=== PATIENT | female | born 1995 | race Caucasian/White ===

== ENCOUNTER 2023-05-18 11:56 | Day surgery (SDC) | payer OTHER, SELFPAY ==
--- NOTE | 2023-05-18 12:00 | FL_ITS ---
[address] [address] Patient Name: PEDRO BUSTOS MRN: [id number] date: 1995 Sex: F Assigned Patient Location: MRI Current Patient Location: MRI Accession/Order Number: [id number] Exam Date: 05/18/2023 12:55 Report Date: 05/18/2023 14:52 At the request of: SAE ANDRADE Procedure: FL arthrogram hip RT EXAMINATION: FL arthrogram hip RT HISTORY: Right hip pain COMPARISON: No relevant comparison available. TECHNIQUE: An arthrogram was performed under fluoroscopic guidance using non-ionic contrast material in the usual sterile manner after obtaining informed consent. Standard level fluoroscopic mode of operation utilized. FINDINGS: JOINT: Right hip NEEDLE: 25 gauge, 3.5 spinal needle. MEDICATION: 2 mL buffered 1% lidocaine for subcutaneous anesthesia. 40 mg Kenalog injected into joint space. Approximately 8 mL injected into joint space consisting of a mixture of 5 mL Omnipaque-300, 5 mL 1% Xylocaine and 0.2 mL Dotarem. TECHNIQUE: Anterior approach under fluoroscopic guidance. CLINICAL: Decreased pain following the injection. COMPLICATIONS: None. OTHER: Negative. FL/FL arthrogram hip RT IMPRESSION: 1. Technically successful arthrogram without complication. 2. Please see separate MRI arthrogram report. Electronically authenticated by: LUIS MANUEL PERES Date: 05/18/2023 14:52
--- NOTE | 2023-05-18 12:11 | FL_ITS ---
The [address] [address] Patient Name: PEDRO BUSTOS MRN: [facility]:[id number] date: 1995 Sex: F Assigned Patient Location: MRI Current Patient Location: MRI Accession/Order Number: [id number] Exam Date: 05/18/2023 12:55 Report Date: 05/19/2023 06:27 At the request of: SAE ANDRADE Procedure: FL guided needle placement EXAMINATION: MR arthrogram hip HISTORY: Right hip pain COMPARISON: No relevant comparison available. TECHNIQUE: A comprehensive examination was performed utilizing a variety of imaging planes and imaging parameters to optimize visualization of suspected pathology. Images were obtained without and/or with IV contrast as indicated by type of examination. FINDINGS: FEMORAL HEAD: Normal. No AVN, fracture, or significant arthropathy. ACETABULUM: Normal. No fracture or significant arthropathy. OTHER BONES: Normal appearance of the visualized portion of the pelvis. LABRUM: Small tear of the posterior labrum. EFFUSIONS: None. No synovitis or loose bodies. BURSAE: Normal. No evidence of iliopsoas or trochanteric bursitis. TENDONS: Normal. Normal gluteus tendons, iliopsoas tendon, and hamstring origin. MUSCLES: Normal. No tear or strain. No inappropriate atrophy. OTHER: Negative. FL/FL guided needle placement IMPRESSION: 1. Small posterior labral tear. Electronically authenticated by: LUIS MANUEL PERES Date: 05/19/2023 06:27
[2023-05-18] MEDS: TRIAMCINOLONE ACETONIDE 40 MG/ML VIAL INJ (13:25)
[2023-05-18] MEDS: LIDOCAINE HCL 15 ML, SODIUM BICARBONATE 2 MEQ INJ (13:25)
--- NOTE | 2023-05-18 13:35 | MR_ITS ---
The [address] [address] Patient Name: PEDRO BUSTOS MRN: [facility]:[id number] date: 1995 Sex: F Assigned Patient Location: MRI Current Patient Location: MRI Accession/Order Number: [id number] Exam Date: 05/18/2023 13:35 Report Date: 05/19/2023 06:27 At the request of: SAE ANDRADE Procedure: MR arthrogram hip EXAMINATION: MR arthrogram hip HISTORY: Right hip pain COMPARISON: No relevant comparison available. TECHNIQUE: A comprehensive examination was performed utilizing a variety of imaging planes and imaging parameters to optimize visualization of suspected pathology. Images were obtained without and/or with IV contrast as indicated by type of examination. FINDINGS: FEMORAL HEAD: Normal. No AVN, fracture, or significant arthropathy. ACETABULUM: Normal. No fracture or significant arthropathy. OTHER BONES: Normal appearance of the visualized portion of the pelvis. LABRUM: Small tear of the posterior labrum. EFFUSIONS: None. No synovitis or loose bodies. BURSAE: Normal. No evidence of iliopsoas or trochanteric bursitis. TENDONS: Normal. Normal gluteus tendons, iliopsoas tendon, and hamstring origin. MUSCLES: Normal. No tear or strain. No inappropriate atrophy. OTHER: Negative. MR/MR arthrogram hip IMPRESSION: 1. Small posterior labral tear. Electronically authenticated by: LUIS MANUEL PERES Date: 05/19/2023 06:27
== END 2023-05-18 11:57 | disposition home or self-care (01) ==
PROVIDERS: Radiology Diagnostic Radiology; Visit Provider Personal Emergency Response Attendant
DX: M25.551 Pain in right hip (principal); S73.191A Other sprain of right hip, initial encounter
CPT/HCPCS: 27093; 73525; 73722; 77002; A9575; Q9967

== ENCOUNTER 2023-11-01 16:45 | Outpatient (OUT) | payer MEDICAID, SELFPAY ==
--- NOTE | 2023-11-01 16:59 | US_ITS ---
The [place] [id number] Patient Name: PEDRO BUSTOS MRN: [id number] date: 1995 Sex: F Assigned Patient Location: Current Patient Location: Accession/Order Number: [id number] Exam Date: 11/01/2023 17:00 Report Date: 11/02/2023 06:39 At the request of: CARMEN GIFFORD Procedure: US OB <= 14 weeks fetus EXAMINATION: US OB <= 14 weeks fetus HISTORY: bleeding in early O20.9 COMPARISON: No relevant comparison available. FINDINGS: GESTATIONAL SAC: Present and normal appearing. YOLK SAC: Present and normal appearing. POLE: Present and normal appearing. CARDIAC: Present. UTERUS: Normal size and appearance. OVARIES: Right: Not seen. Left: Normal. CERVIX: 4.6 cm in length and closed. CUL-DE-SAC: Normal. OTHER: None. AGE BY LMP: 11 weeks 1 day [place] BY LMP: 05/21/2024 AGE BY US CRL: 12 weeks 1 day [place] BY US CRL: 05/14/2024 US/US OB <= 14 weeks fetus IMPRESSION: 1. Single live intrauterine . Electronically authenticated by: LUIS MANUEL PERES Date: 11/02/2023 06:39
== END 2023-11-01 16:46 | disposition home or self-care (01) ==
PROVIDERS: Visit Provider Midwife
DX: O20.9 Hemorrhage in early pregnancy, unspecified (principal); Z3A.12 12 weeks gestation of pregnancy
CPT/HCPCS: 76801

== ENCOUNTER 2024-02-27 21:22 | Observation (INO) | payer OTHER, SELFPAY ==
--- OUTSIDE RECORDS SUMMARY | 2024-02-27 21:42 | XMS_ITS | CCD ---
Author Organization [facility] Care Team Providers Care Tactical/Mobile Watch Officer Name Role Phone Beena Mosqueda Unavailable EcheverriaMarialuisa pleitez Unavailable Carlos Perry Unavailable Ovi Walsh Attending Unavailab le Ovi Walsh Admitting Unavailab le NON STAFF Primary Care Unavailable Unallocated, Noms Provider Primary Care Provider DIVINA BURNSERIE Referring Unavailable RUY, CHIVO THOMAS Primary Care Unavailable CECIL ROBLEDO Attending Unavailable FLORO, CARMEN Referring Unavailable RUY, CHIVO THOMAS Primary Care Unavailable RUY, CHIVO THOMAS Primary Care Unavailable JAMAL NAGEL Attending Unavailable ART UP Admitting Unavailable ART UP Attending Unavailable RUY, CHIVO THOMAS Primary Care Unavailable RUY, CHIVO THOMAS Primary Care Unavailable RUY, CHIVO THOMAS Primary Care Unavailable FLORO, CARMEN L Attending Unavailable FLORO, CARMEN L Attending Unavailable FLORO, CARMEN L Attending Unavailable FLORO, CARMEN L Referring Unavailable FLORO, CARMEN L Attending Unavailable FLORO, CARMEN L Attending Unavailable FLORO, CARMEN L Attending Unavailable FLORO, CARMEN L Referring Unavailable Allergies Allergy Classification Reported Allergen(s) Allergy Type Date of Onset Reaction(s) Facility (4 sources) [facility] Drug Allergy Rash, Unknown cisimple Other (1 source) [facility] Drug Allergy 01-07-20 [facility] Repository (6 sources) metFORMIN; Translations: [METFORMIN HCL] Drug Allergy 09-07-20 Unknown [facility] (6 sources) nickel sulfate; Translations: [NICKEL] Drug Allergy 12-26-19 Rash [facility] (6 sources) Sulfamethoxazole / Trimethoprim; Translations: [SULFAMETHOXAZOLE-T RIMETHOPRIM] Drug Allergy 09-07-20 Dizziness [facility] (1 source) Latex; Translations: [LATEX] Propensity to adverse reactions to drug (disorder) 02-08-20 [facility] Repository Medications Current Medications Medication Drug Class(es) Dates Sig (Normalized) Sig (Original) amoxicillin 875 mg oral tablet (3 sources) Penicillin-class Antibacterial Start: 01-06-2023 take 1 tablet by mouth every twelve hours Amoxicillin 875 MG 1 capsule Orally Twice a day for 7 days Dec, Active ondansetron 4 mg disintegrating oral tablet (7 sources) Serotonin-3 Receptor Antagonist Start: 03-12-2023 take 1 tablet by mouth every eight hours as needed ondansetron ODT (Zofran-ODT) 4 MG disintegrating tablet Take 4 mg by mouth every 8 (eight) hours if needed. 0 03/12/2023 Active Start: 01-03-2023 take 1 tablet by [place] every eight hours Ondansetron 4 MG 1 tablet on the tongue and allow to dissolve Orally every 8 hours for 5 days Dec, Not-Taking sertraline 100 mg oral tablet (8 sources) Serotonin Reuptake Inhibitor Start: 09-19-2022 take 2 tablets by mouth in the morning sertraline (Zoloft) 100 MG tablet Take 200 mg by mouth in the morning. 0 09/19/2022 Active take 1 capsule by mo [facility] every twenty-four hours Sertraline HCl 200 MG 1 capsule Orally Once a day Active Sertraline HCl A ctive Completed/Discontinued Medications Medication Drug Class(es) Dates Sig (Normalized) Sig (Original) cyclobenzaprine hydrochloride 10 mg oral tablet (1 source) Muscle Relaxant Start: 03-30-2023 End: 10-04-2023 take 1 tablet by mouth three times daily as needed cyclobenzaprine (Flexeril) 10 MG tablet Take 10 mg by mouth 3 (three) times a day as needed. 0 03/30/2023 10/04/2023 Discontinued (Therapy completed) lamoTRIgine 150 mg oral tablet (5 sources) Mood Stabilizer, Anti-epileptic Agent Start: 02-13-2023 End: 10-04-2023 take 1 tablet by mouth in the morning lamoTRIgine (LaMICtal) 150 MG tablet Take 150 mg by mouth in the morning. 0 02/13/2023 10/04/2023 Discontinued (Therapy completed) take 1 tablet by [place] th every twenty-four hours lamoTRIgine 100 MG 1 tablet Orally Once a day Active lamoTRIgine Acti ve Problems Active Problems Problem Classification Problem Date Documented Da te Episodic/Chronic Abdominal pain (5 sources) Abdominal pain; Translations: [Unspecified abdominal pain] Onset: 10-14-2023 Episodic Anxiety disorders (1 source) Panic attack Onset: 02-08-2024 Chronic Esophageal disorders (3 sources) Gastro-esophageal reflux disease with esophagitis; Translations: [Gastro-esophageal reflux disease with esophagitis] Chronic Essential hypertension (1 source) Hypertensive disorder Onset: 12-25-2023 Chronic Gastritis and duodenitis (3 sources) Gastritis; Translations: [Gastritis, unspecified, without bleeding] Episodic Gastrointestinal hemorrhage (3 sources) Hematochezia; Translations: [Hemorrhage of anus and rectum] Episodic Immunizations and screening for infectious disease (1 source) Contact with and (suspected) exposure to other viral communicable diseases Episodic Malaise and fatigue (2 sources) Weakness; Translations: [Fatigue] Onset: 12-25-2023 Episodic Menstrual disorders (1 source) Amenorrhea; Translations: [Amenorrhea, unspecified] 10-04-2023 Chronic Nausea and vomiting (7 sources) Nausea; Translations: [Nausea] Episodic Other complications of (1 source) Other specified related conditions, second trimester; Translations: [Other specified related conditions, second trimester] Onset: 01-11-2024 Episodic Other gastrointestinal disorders (3 sources) Irritable bowel syndrome; Translations: [Mixed irritable bowel syndrome] Chronic Other gastrointestinal disorders (3 sources) Irritable bowel syndrome characterized by constipation; Translations: [Irritable bowel syndrome with constipation] Chronic Other gastrointestinal disorders (3 sources) Constipation alternates with diarrhea; Translations: [Other specified symptoms and signs involving the digestive system and abdomen] Episodic Other gastrointestinal disorders (3 sources) Diarrhea; Translations: [Diarrhea, unspecified] Episodic Other and delivery including normal (3 sources) test positive; Translations: [Encounter for test, result positive] 10-04-2023 Episodic Other screening for suspected conditions (not mental disorders or infectious disease) (3 sources) Patient encounter status; Translations: [Encounter for other specified screening] Onset: 02-06-2024 11-30-2023 Episodic Other upper respiratory infections (2 sources) Sinusitis; Translations: [Chronic sinusitis, unspecified] Chronic Other upper respiratory infections (2 sources) Acute upper respiratory infection, unspecified; Translations: [Acute pharyngitis, unspecified] Episodic Otitis media and related conditions (1 source) Otitis media, unspecified, bilateral Episodic Unclassified (3 sources) OB Reminders Onset: 11-17-2023 11-17-2023 Unclassified (1 source) HX IUGR Onset: 02-06-2024 Unclassified (1 source) High Blood Pressure, 19 Weeks Onset: 12-25-2023 Unclassified (1 source) Abdominal Pain Onset: 10-14-2023 Past or Other Problems Problem Classification Problem Date Documented Da te Episodic/Chronic Other complications of (1 source) Other specified related conditions, unspecified trimester; Translations: [Other specified related conditions, unspecified trimester] Onset: 10-14-2023 Episodic Unclassified (1 source) Cough R05.9 NEGATED: Highlighted row has been ruled out!Unclassified (4 sources) No known active problems 06-06-2023 Results Test Name Value Interpretation Reference Range Facility URINALYSISon 01-11-2024 Bilirubin Ql (U) Negative Normal NEG [facility] Comment on above: Performed By: #### U A #### [facility] ([id number]) [address] [place] [address]45 BLOOD/HGB Negative Normal NEG [facility] Comment on above: Performed By: #### U A #### [facility] ([id number]) [address] [place] [address] [place] [address] Color (U) YELLOW Normal YELLOW [facility] Comment on above: Performed By: #### U A #### [facility] ([id number]) [address] [place] [address] [place] [address] Glucose Ql (U) Negative Normal NEG [facility] Comment on above: Performed By: #### U A #### [facility] ([id number]) [address] [place] [address] [place] [address] Ketones Ql (U) Trace Abnormal NEG [facility] Comment on above: Performed By: #### U A #### [facility] ([id number]) [address] [place] [address] 47370 Leukocyte esterase Test strip Ql (U) SMALL Abnormal NEG [facility] Comment on above: Performed By: #### U A #### [facility] ([id number]) [address] [place] [address] 17888 Nitrite Ql (U) Negative Normal NEG [facility] Comment on above: Performed By: #### U A #### [facility] ([id number]) [address] [place] [address] 12889 pH (U) 6.0 [pH] Normal 5.0-8.5 [facility] Comment on above: Performed By: #### U A #### [facility] ([id number]) [address] [place] [address] 73744 Protein Ql (U) Negative Normal NEG [facility] Comment on above: Performed By: #### U A #### [facility] ([id number]) [address] [place] [address] [place] [address] R.B.CELLS 0 to 1 Normal 0-5 [facility] Comment on above: Performed By: #### U A #### [facility] ([id number]) [address] [place] [address] [place] [address] Specific gravity (U) [Rel density] >1.030 Normal 1.003-1.035 [facility] Comment on above: Performed By: #### U A #### [facility] ([id number]) [address] [place] [address] [place] [address] SQUAMOUS EPITHELIUM 5 /hpf Normal 0-5 [facility] Comment on above: Performed By: #### U A #### [facility] ([id number]) [address] [place] [address] 72782 TURBIDITY HAZY Abnormal CLEAR [facility] Comment on above: Performed By: #### U A #### [facility] ([id number]) [address] [place] [address] 04651 Urobilinogen Qn (U) 0.2 {Afsaneh'U}/dL Normal <1.1 [facility] Comment on above: Performed By: #### U A #### [facility] ([id number]) [address] [place] [address] 78218 W.B.CELLS 30 /hpf High 0-5 [facility] Comment on above: Performed By: #### U A #### [facility] ([id number]) [address] [place] [address] URINE CULTUREon 01-11-2024 Bacteria identified Cx Nom (U) SPECIMEN NOTES URINE RECEIVED WITHOUT PRESERVATIVE CULTURE RESULTS 10-50,000 ORGANISMS/mL NORMAL UROGENITAL MANNY URINE RECEIVED WITHOUT PRESERVATIVE-DELAYS IN TRANSPORT MAY AFFECT RESULTS.INTERPRET WITH CAUTION AND CLINICAL CORRELATION IS RECOMMENDED. Normal [facility] Comment on above: Performed By: #### 6 30-4 #### [facility] ([id number]) [address], [address] [place] [address] CBC AND AUTO DIFFon 12-25-19 24 ABSOLUTE BASOPHIL 0.0 X10E9/L Normal 0.0-0.[address] [facility] Comment on above: Performed By: #### C BCA, CMP #### [facility] ([id number]) [address] [place] [address] ABSOLUTE NEUTROPHIL 8.4 X10E9/L High 1.5-6.6 [facility] Comment on above: Performed By: #### C BCA, CMP #### [facility] ([id number]) [address] [place] [address] 77375 Basophils/100 WBC (Bld) 0.2 % Normal [facility] Comment on above: Performed By: #### C BCA, CMP #### [facility] ([id number]) [address] [place] [address] 60437 Eosinophils (Bld) [#/Vol] 0.1 10*3/uL Normal 0.0-0.4 [facility] Comment on above: Performed By: #### C BCA, CMP #### [facility] ([id number]) [address] [place] [address] 29251 Eosinophils/100 WBC (Bld) 1.0 % Normal [facility] Comment on above: Performed By: #### C BCA, CMP #### [facility] ([id number]) [address] [place] [address] 23096 Erythrocyte distribution width (RBC) [Ratio] 12.9 % Normal 11.5-15.0 [facility] Comment on above: Performed By: #### C BCA, CMP #### [facility] ([id number]) [address] [place] [address] 98835 Hematocrit (Bld) [Volume fraction] 36.6 % Normal 35-47 [facility] Comment on above: Performed By: #### C BCA, CMP #### [facility] ([id number]) [address] [place] [address] 67596 Hemoglobin (Bld) [Mass/Vol] 12.7 g/dL Normal 11.7-15.5 [facility] Comment on above: Performed By: #### C BCA, CMP #### [facility] ([id number]) [address] [place] [address] 30241 Lymphocytes (Bld) [#/Vol] 2.7 10*3/uL Normal 1.0-3.5 [facility] Comment on above: Performed By: #### C BCA, CMP #### [facility] ([id number]) [address] [place] [address] 29419 Lymphocytes/100 WBC (Bld) 23.0 % Normal [facility] Comment on above: Performed By: #### C BCA, CMP #### [facility] ([id number]) [address] [place] [address] 97155 MCH (RBC) [Entitic mass] 29.8 pg Normal 27-34 [facility] Comment on above: Performed By: #### C BCA, CMP #### [facility] ([id number]) [address] [place] [address] 44042 MCHC (RBC) [Mass/Vol] 34.8 g/dL Normal 32-36 [facility] Comment on above: Performed By: #### C BCA, CMP #### [facility] ([id number]) [address] [place] [address] 87799 MCV (RBC) [Entitic vol] 86 fL Normal 80-100 [facility] Comment on above: Performed By: #### C BCA, CMP #### [facility] ([id number]) [address] [place] [address] 23584 Monocytes (Bld) [#/Vol] 0.6 10*3/uL Normal 0-0.9 [facility] Comment on above: Performed By: #### C BCA, CMP #### [facility] ([id number]) [address] [place] [address] 97877 Monocytes/100 WBC (Bld) 4.9 % Normal [facility] Comment on above: Performed By: #### C BCA, CMP #### [facility] ([id number]) [address] [place] [address] 86759 Neutrophils/100 WBC (Bld) 70.9 % Normal [facility] Comment on above: Performed By: #### C BCA, CMP #### [facility] ([id number]) [address] [place] [address] 89918 Platelet mean volume (Bld) [Entitic vol] 7.6 fL Normal 7-12 [facility] Comment on above: Performed By: #### C BCA, CMP #### [facility] ([id number]) [address] [place] [address] 55357 Platelets (Bld) [#/Vol] 315 10*3/uL Normal 150-450 [facility] Comment on above: Performed By: #### C BCA, CMP #### [facility] ([id number]) [address] [place] [address] 39634 RBC COUNT 4.27 X10E12/L Normal 3.80-5.20 [facility] Comment on above: Performed By: #### C BCA, CMP #### [facility] ([id number]) [address] [place] [address] 46449 WBC (Bld) [#/Vol] 11.9 10*3/uL High 4.0-11.0 [facility] Comment on above: Performed By: #### C BCA, CMP #### [facility] ([id number]) [address] [place] [address] 74664 COMPREHENSIVE METABOLIC PANE Radames 12-25-2023 Albumin [Mass/Vol] 3.4 g/dL Normal 3.2-5.[address] [facility] Comment on above: Performed By: #### C BCA, CMP #### [facility] ([id number]) [address] [place] [address] 23464 ALP [Catalytic activity/Vol] 104 U/L Normal 39-130 [facility] Comment on above: Performed By: #### C BCA, CMP #### [facility] ([id number]) [address] [place] [address] 30202 ALT [Catalytic activity/Vol] 46 U/L High 0-31 [facility] Comment on above: Performed By: #### C BCA, CMP #### [facility] ([id number]) [address] [place] [address] 88446 Anion gap [Moles/Vol] 6 mmol/L Normal 5-15 [facility] Comment on above: Performed By: #### C BCA, CMP #### [facility] ([id number]) [address] [place] [address] 42856 AST [Catalytic activity/Vol] 28 U/L Normal 0-41 [facility] Comment on above: Performed By: #### C BCA, CMP #### [facility] ([id number]) [address] [place] [address] 89440 Bilirubin [Mass/Vol] 0.4 mg/dL Normal 0.3-1.2 [facility] Comment on above: Performed By: #### C BCA, CMP #### [facility] ([id number]) [address] [place] [address] 04609 Calcium [Mass/Vol] 9.3 mg/dL Normal 8.5-10.[address] [facility] Comment on above: Performed By: #### C BCA, CMP #### [facility] ([id number]) [address] [place] [address] 85399 Chloride [Moles/Vol] 103 mmol/L Normal 98-109 [facility] Comment on above: Performed By: #### C BCA, CMP #### [facility] ([id number]) [address] [place] [address] 11737 CO2 [Moles/Vol] 23 mmol/L Normal 22-32 [facility] Comment on above: Performed By: #### C BCA, CMP #### [facility] ([id number]) [address] [place] [address] 63343 Creatinine [Mass/Vol] 0.51 mg/dL Normal 0.40-1.00 [facility] Comment on above: Result Comment: METH OD TRACEABLE TO IDMS STANDARD Performed By: #### C BCA, CMP #### [facility] ([id number]) [address] [place] [address] 16385 eGFR (CKD-EPI) NON-RACE DEPENDENT >90 Normal >59 [facility] Comment on above: Result Comment: Reported eGFR is based on the CKD-EPI 2020 equation that does not use a race coefficient. Performed By: #### C BCA, CMP #### [facility] ([id number]) [address] [place] [address] 60470 Glucose [Mass/Vol] 88 mg/dL Normal 65-[address] [facility] Comment on above: Performed By: #### C BCA, CMP #### [facility] ([id number]) [address] [place] [address] 89438 Potassium [Moles/Vol] 3.7 mmol/L Normal 3.5-5.0 [facility] Comment on above: Performed By: #### C BCA, CMP #### [facility] ([id number]) [address] [place] [address] 95417 Protein [Mass/Vol] 7.2 g/dL Normal 6.0-8.[address] [facility] Comment on above: Performed By: #### C BCA, CMP #### [facility] ([id number]) [address] [place] [address] 31657 Sodium [Moles/Vol] 132 mmol/L Low 134-[address] [facility] Comment on above: Performed By: #### C BCA, CMP #### [facility] ([id number]) [address] [place] [address] 41219 Urea nitrogen [Mass/Vol] 10 mg/dL Normal 5-23 [facility] Comment on above: Performed By: #### C BCA, CMP #### [facility] ([id number]) [address] [place] [address] 40531 URN MACROSCOPIC NURon 2023 BILIRUBIN TITO Negative Normal NEG [facility] Comment on above: Performed By: #### N UM #### [facility] ([id number]) [address] [place] [address] 42271 BLOOD/HGB TITO Negative Normal NEG [facility] Comment on above: Performed By: #### N UM #### [facility] ([id number]) [address] [place] [address] 38352 GLUCOSE TITO 100 mg/dL Abnormal NEG [facility] Comment on above: Performed By: #### N UM #### [facility] ([id number]) [address] [place] [address] [place] [address] KETONES TITO Negative Normal NEG [facility] Comment on above: Performed By: #### N UM #### [facility] ([id number]) [address] [place] [address] [place] [address] LEUKOCYTE ESTERASE TITO Trace Abnormal NEG [facility] Comment on above: Performed By: #### N UM #### [facility] ([id number]) [address] [place] [address] [place] [address] NITRITE TITO Negative Normal NEG [facility] Comment on above: Performed By: #### N UM #### [facility] ([id number]) [address] [place] [address] 17863 PH TITO 6.0 Normal 5.0-8.5 [facility] Comment on above: Performed By: #### N UM #### [facility] ([id number]) [address] [place] [address] 26007 PROTEIN TITO Negative Normal NEG [facility] Comment on above: Performed By: #### N UM #### [facility] ([id number]) [address] [place] [address] SPECIFIC GRAVITY TITO 1.020 Normal 1.003-1.035 [facility] Comment on above: Performed By: #### N UM #### [facility] ([id number]) [address] [place] [address] UROBILINOGEN TITO 0.2 eu/dL Normal <1.1 [facility] Comment on above: Performed By: #### N UM #### [facility] ([id number]) [address] [place] [address] US OB 14+ WEEKS ANATOMY SCAN on 12-21-2023 US OB 14+ WEEKS ANATOMY SCAN FINDINGS: Single live intrauterine . heart rate 145 bpm. Cephalic position. somatic movement identified. Grade 1 anterior placenta. BÁRBARA 13.78 cm. Cervical length 3.4 cm. Lateral ventricles, posterior fossa, four-chamber heart, diaphragm, stomach, kidneys, three-vessel cord and cord insertion, urinary bladder, long bones identified. Cervical, thoracic, and lumbar spine incompletely imaged secondary to age and position. Estimated sonographic gestational age 19 weeks, 0 days. This compares with 19 weeks, 1 day by dates. Sonographic estimated date of delivery May 16, 2024. Estimated weight 270 g (39% by LMP percentile). BPD 4.37 cm. AC 13.49 cm. HC 15.86 cm. FL 3.0 cm. IMPRESSION: Single live intrauterine with estimated sonographic gestational age 19 weeks, 0 days. Estimated weight 270 g. ELECTRONICALLY SIGNED BY: Elio Chawla MD Normal Not Available Bacteria identified Cx Nom ( U)on 11-03-2023 Appearance (U) Adequate [facility] Internal identifier for Provider [id number] [facility] Specimen source Nom (Unsp spec) URINE [facility] STATUS FINAL [facility] DRUG TOX MONITORIGN 6 W/ CON F,URINEon 11-03-2023 8-Ejkqtrmflp-5,5-Dimethy l-3,3-Diphenylpyrrolidin e (EDDP) Ql (U) Negative NINF - 100 ng/mL [facility] Amphetamines Ql (U) Negative NINF - 5 00 ng/mL [facility] Barbiturates Ql (U) Negative NINF - 3 00 ng/mL [facility] Benzodiazepines Ql (U) Negative NINF - 100 ng/mL [facility] Benzoylecgonine Ql (U) Negative NINF - 150 ng/mL [facility] Opiates Ql (U) Negative NINF - 100 ng/mL [facility] oxyCODONE Ql (U) Negative NINF - 100 ng/mL [facility] Phencyclidine Ql (U) Negative NINF - 25 ng/mL [facility] Tetrahydrocannabinol Screen method >20 ng/mL Ql (U) Negative NINF - 20 ng/mL [facility] N. gonorrhoeae DNA ANTONIO+probe Ql (Cervical mucus)on 11-03-2023 C. trachomatis rRNA ANTONIO+probe Ql (Unsp spec) Not detected NOT DETECTED [facility] N. gonorrhoeae rRNA ANTONIO+probe Ql (Unsp spec) Not detected NOT DETECTED [facility] No Panel Informationon 11-03 (ALWAYS MESSAGE) [facility] Comment on above: See Note 1 Note 1 This drug testing is for medical treatment only. Analysis was performed as non-forensic testing and these results should be used only by healthcare providers to render diagnosis or treatment, or to monitor progress of medical conditions. For assistance with interpreting these drug results, please contact a [employer] Toxicology Specialist: [phone] ( ), M-F, 8am-6pm EST. The analytical perfo rmance characteristics of this assay, when used to test SurePath(TM) specimens have been determined by [employer]. The modifications have not been cleared or approved by the FDA. This assay has been validated pursuant to the CLIA regulations and is used for clinical purposes. For additional information, please refer to https://education.psicofxp/faq/GJF718 (This link is being provided for information/ educational purposes only.) SPLIT 11/01/2023 FROM [id number] [employer] Organization Information Site ID: QPT Name: [employer] [facility] Address: [address] [place], [place] [address] , [address] [place] [phone] Director: Arturo Nobles MD [facility] URINALYSIS MICROSCOPICon Bacteria LM.HPF (Urine sed) [#/Area] NONE SEEN NONE SEEN /HPF [facility] Epithelial cells.squamous LM.HPF (Urine sed) [#/Area] 6-10 Abnormal < OR = 5 /HPF [facility] Hyaline casts (Urine sed) [#/Area] NONE SEEN NONE SEEN /LPF [facility] Interpretation and review of laboratory results Abnormal [facility] RBC LM.HPF (Urine sed) [#/Area] 0-2 < OR = 2 /HPF [facility] WBC LM.HPF (Urine sed) [#/Area] NONE SEEN < OR = 5 /HPF [facility] Urine cultureon 11-03-2023 Bacteria identified Cx Nom (U) SEE NOTE [facility] Comment on above: No Growth ABO/Rhon 11-02-2023 ABO group Nom (Bld) B [facility] Rh Nom (Bld) Positive [facility] Comment on above: For additional information, please refer to http://education.Coship Electronics/faq/DRT795 (This link is being provided for informational/ educational purposes only.) Antibody screenon 11-02-2023 Blood group antibody screen Ql Detected [facility] Comment on above: Reference range No antibodies detected This assay is a screening test for the detection of red blood cell antibodies. The test is not to be used for pretransfusion screening or for the medical management of an alloimmunized . CBC panel Auto (Bld)on 11-02 Erythrocyte distribution width (RBC) [Ratio] 12.6 % 11.0 - 15.0 % [facility] Hematocrit (Bld) [Volume fraction] 39.5 % 35.0 - 45.0 % [facility] Hemoglobin (Bld) [Mass/Vol] 13.3 g/dL 11.7 - 15.5 g/dL [facility] MCH (RBC) [Entitic mass] 30.1 pg 27. 0 - 33.0 pg [facility] MCHC (RBC) [Mass/Vol] 33.7 g/dL 32.0 - 36.0 g/dL [facility] MCV (RBC) [Entitic vol] 89.4 fL 80.0 - 100.0 fL [facility] Platelet mean volume (Bld) [Entitic vol] 10.1 fL 7.5 - 12.5 fL [facility] Platelets (Bld) [#/Vol] 331 10*3/uL [facility] RBC (Bld) [#/Vol] 4.42 10*6/uL [facility] WBC (Bld) [#/Vol] 12.2 10*3/uL [facility] HIV-1 and HIV-2 antibodieson 11-02-2023 HIV 1+2 Ab+HIV1 p24 Ag IA Ql Non-Reactive NON-REACTIVE [facility] Comment on above: HIV-1 antigen and HI V-1/HIV-2 antibodies were not detected. There is no laboratory evidence of HIV infection. PLEASE NOTE: This information has been disclosed to you from records whose confidentiality may be protected by state law. If your state requires such protection, then the state law prohibits you from making any further disclosure of the information without the specific written consent of the person to whom it pertains, or as otherwise permitted by law. A general authorization for the release of medical or other information is NOT sufficient for this purpose. For additional information please refer to http://education.L[employer].cfgAdvance/faq/JIG426 (This link is being provided for informational/ educational purposes only.) The performance of this assay has not been clinically validated in patients less than 2 years old. Hemoglobin A1con 11-02-2023 HbA1c (Bld) [Mass fraction] 5.9 % [facility] Comment on above: For someone without known diabetes, a hemoglobin A1c value between 5.7% and 6.4% is consistent with prediabetes and should be confirmed with a follow-up test. For someone with known diabetes, a value <7% indicates that their diabetes is well controlled. A1c targets should be individualized based on duration of diabetes, age, comorbid conditions, and other considerations. This assay result is consistent with an increased risk of diabetes. Currently, no consensus exists regarding use of hemoglobin A1c for diagnosis of diabetes for children. HbA1c performed on [employer] platform. Effective 10/03/23 a change in test platforms may have shifted HbA1c results compared to historical results. Hepatitis B surface antigeno n 11-02-2023 HBV surface Ag IA Ql Non-Reactive NON-REACTIVE [facility] Comment on above: For additional information, please refer to http://education.psicofxp/faq/ZWT225 (This link is being provided for informational/ educational purposes only.) Hepatitis C antibodyon 11-02 HCV Ab IA Ql Non-Reactive NON-REACTIVE [facility] Comment on above: HCV antibody was non-reactive. There is no laboratory evidence of HCV infection. In most cases, no further action is required. However, if recent HCV exposure is suspected, a test for HCV RNA (test code 85955) is suggested. For additional information please refer to http://Cloudscaling.psicofxp/faq/COO14h9 (This link is being provided for informational/ educational purposes only.) No Panel Informationon 11-02 Interpretation and review of laboratory results Abnormal [facility] PATIENT UNABLE TO VOID; ADVISED TO RETURN FOR COLLECTION. [employer] Organization Information Site ID: QPT Name: [employer] [facility] Address: [address] [place] [address], [address] [place] [phone] Director: Arturo Nobles MD [facility] RPRon 11-02-2023 Reagin Ab RPR Ql (S) Non-Reactive NON-REACTIVE [facility] Rubella antibody, IgGon 10-16 Rubella virus IgG Qn (S) 1.06 [IU]/mL Index [facility] Comment on above: Index Interpretation ----- <0.90 Not consistent with immunity 0.90-0.99 Equivocal > or = 1.00 Consistent with immunity The presence of rubella IgG antibody suggests immunization or past or current infection with rubella virus. TSH W/REFLEX TO FT4on 2023 TSH Qn 2.06 m[IU]/L mIU/L [facility] are Comment on above: Reference Range > or = 20 Years 0.40-4.50 Ranges First trimester 0.26-2.66 Second trimester 0.55-2.73 Third trimester 0.43-2.91 URINE CULTUREon 10-14-2023 Bacteria identified Cx Nom (U) CULTURE RESULTS <10,000 ORGANISMS/ML NORMAL URO GENITAL MANNY Normal [facility] Comment on above: Performed By: #### 6 30-4 #### [facility] ([id number]) [address] [place] [address], [address] [place] [address] URN MACROSCOPIC NURon 2022 BILIRUBIN TITO Negative Normal NEG [facility] Comment on above: Performed By: #### N UM #### [facility] ([id number]) [address] [place] [address] BLOOD/HGB TITO Trace Abnormal NEG [facility] Comment on above: Performed By: #### N UM #### [facility] ([id number]) [address] [place] [address] GLUCOSE TITO Negative Normal NEG [facility] Comment on above: Performed By: #### N UM #### [facility] ([id number]) [address] [place] [address] [place] [address] KETONES TITO Trace Abnormal NEG [facility] Comment on above: Performed By: #### N UM #### [facility] ([id number]) [address] [place] [address] LEUKOCYTE ESTERASE TITO Negative Normal NEG [facility] Comment on above: Performed By: #### N UM #### [facility] ([id number]) [address] [place] [address] [place] [address] NITRITE TITO Negative Normal NEG [facility] Comment on above: Performed By: #### N UM #### [facility] ([id number]) [address] [place] [address] PH TITO 7.0 Normal 5.0-8.5 [facility] Comment on above: Performed By: #### N UM #### [facility] ([id number]) [address] [place] [address] PROTEIN TITO Negative Normal NEG [facility] Comment on above: Performed By: #### N UM #### [facility] ([id number]) [address] [facility] [place] [address] SPECIFIC GRAVITY TITO 1.025 Normal 1.003-1.035 [facility] Comment on above: Performed By: #### N UM #### [facility] ([id number]) [address] [place] [address] UROBILINOGEN TITO 0.2 eu/dL Normal <1.1 [facility] Comment on above: Performed By: #### N UM #### [facility] ([id number]) [address] [place] [address] US OB < 14 WEEKS EARLYon US OB < 14 WEEKS EARLY This is a summary report. The complete report is available in the patient's medical record. If you cannot access the medical record, please contact the sending organization for a detailed fax or copy. US OB < 14 WEEKS EARLY : 10/04/2023 2:00 PM CLINICAL HISTORY: First trimester . COMPARISON: None available. TECHNIQUE: ROUTINE FINDINGS: The uterus measures 9.3 x 6.2 x 4.6 cm. A single intrauterine is seen with heart motion of 147 bpm. The gestational age based on crown-rump length is 7 weeks 1 day. The right ovary measures 3.2 x 2.5 x 2.5 cm. The left ovary measures 1.8 x 1.7 x 2.1 cm. No free fluid is seen. IMPRESSION: A SINGLE INTRAUTERINE IS SEEN WITH HEART MOTION. THE GESTATIONAL AGE BASED ON THIS EXAMINATION IS 7 WEEKS 1 DAY WITH AN EXPECTED DUE DATE OF MAY 21, 2024. ELECTRONICALLY SIGNED BY: Nilesh Johnson, DO Normal Not Available COVID/FLU/RSV RT-PCRon 01-03 SARS-CoV-2 (COVID-19) RNA ANTONIO+probe Ql (Unsp spec) Negative [place] [employer] Other COVID/FLU/RSV RT-PCR Negative [facility] [employer] Other Quick Strepon 01-03-2023 S. pyogenes Org specific cx Ql (Throat) Negative [facility] [employer] Other Quick Strep [facility] [employer] Other COVID/FLU/RSV RT-PCRon 10-21 SARS-CoV-2 (COVID-19) RNA ANTONIO+probe Ql (Unsp spec) Negative [facility] [employer] Other COVID/FLU/RSV RT-PCR Negative [facility] [employer] Other Q - SURESWAB ADVANCED VAGINI TIS PLUSon 01-21-2022 SENIA GLABRATA Not detected Normal NOT DETECTED [facility] [employer] Machine Operator Comment on above: Order Comment: [facility] Testing performed at: [facility], [address] [facility], [address] [place] [address], [phone], Prime Minister: Arturo Nobles MD [facility] Collection Date/Time: [facility] Results Received Date/Time: [facility] Reported Date/Time: Result Comment: Senia species C. albicans, C. tropicalis, C. parapsilosis, and/or C. dubliniensis can be detected, but not differentiated, in the Senia spp. result. Performed By: #### 1 0120 #### [facility] Default [address] [place] [address] SENIA SPECIES Not detected Normal NOT DETECTED [facility] [employer] Operator Comment on above: Order Comment: [facility] Testing performed at: [facility], [address] , [address] [place] [address], [place], [phone], Prime Minister: Arturo Nobles MD [facility] Collection Date/Time: [facility] Results Received Date/Time: [facility] Reported Date/Time: Performed By: #### 1 0120 #### [facility] Default [address] [place] [address] CHLAMYDIA TRACHOMATIS RNA, TMA, UROGENITAL Not detected Normal NOT DETECTED [facility] [employer] Machine Operator Comment on above: Order Comment: [facility] Testing performed at: [facility], [address], [address] [place] [address], [address] [place] [address], Prime Minister: Arturo Nobles MD [facility] Collection Date/Time: [facility] Results Received Date/Time: [facility] Reported Date/Time: Performed By: #### 1 0120 #### [facility] Default [address] [place] [address] NEISSERIA GONORRHOEAE RNA, TMA, UROGENITAL Not detected Normal NOT DETECTED [facility] Comment on above: Order Comment: [facility] performed at: [employer], [employer] [employer] [facility], [address] , [address] [place] [address], [address] [place] [address], Prime Minister: Arturo Nobles MD [facility] Collection Date/Time: [facility] Results Received Date/Time: [facility] Reported Date/Time: Result Comment: For additional information, please refer to https://Cloudscaling.psicofxp/faq/ZKG957 (This link is being provided for information/ educational purposes only.) Performed By: #### 1 0120 #### [facility] Default [address] [place] [address] SURESWAB(R) ADV BACTERIAL VAGINOSIS (BV), TMA Negative Normal NEGATIVE [facility] Comment on above: Order Comment: [facility] Testing performed at: [employer], [employer] [facility], [address], [address] [place] [address], [address] [place] [address], Prime Minister: Arturo Nobles MD [facility] Collection Date/Time: [facility] Results Received Date/Time: [facility] Reported Date/Time: Performed By: #### 1 0120 #### [facility] Default [address] [place] [address] TRICHOMONAS VAGINALIS (TV), TMA Not detected Normal NOT DETECTED [facility] Comment on above: Order Comment: [facility] performed at: [employer], [employer] [facility], [address], [address] [place] [address], [phone], Prime Minister: Arturo Nobles MD [facility] Date/Time: [id number] [facility] Results Received Date/Time: [facility] Reported Date/Time: [id number] Performed By: #### 1 0120 #### [facility] Default [address] [place] [address] Vital Signs Date Time Vital Sign Value Performing Clinician Facility 11-30-2023 13:31-0500 Body mass index (BMI) [Ratio] 24.61 kg/m2 Carmen Sharonao CNM Work Phone: [facility] 11-30-2023 13:31-0500 Body weight 57.15 kg Carmen Sharonao CNM Work Phone: [facility] 11-30-2023 13:31-0500 Diastolic blood pressure 60 mm[Hg] Carmen Sharonao CNM Work Phone: [facility] 11-30-2023 13:31-0500 Systolic blood pressure 110 mm[Hg] Carmen Sharonao CNM Work Phone: [facility] 10-04-2023 13:46-0500 Body mass index (BMI) [Ratio] 25 kg/m2 Carmen Floro CNM Work Phone: [facility] 10-04-2023 13:46-0500 Body weight 58.06 kg Carmen Sharonao CNM Work Phone: [facility] 01-06-2023 17:30-0400 Body height 152.4 cm Marialuisa Echeverria Other [facility] Other 01-06-2023 17:30-0400 Body mass index (BMI) [Ratio] 23.51 kg/m2 Marialuisa Echeverria Other [facility] Other 01-06-2023 17:30-0400 Body temperature 96.6 [degF] Marialuisa Echeverria Other [facility] Other 01-06-2023 17:30-0400 Body weight 54.61 kg Marialuisa Echeverria Other [facility] Other 01-06-2023 17:30-0400 Diastolic blood pressure 70 mm[Hg] Marialuisa Echeverria Other [facility] Other 01-06-2023 17:30-0400 Respiratory rate 18 /min Marialuisa Echeverria Other [facility] Other 01-06-2023 17:30-0400 SaO2% (BldA) [Mass fraction] 97 % Marialuisa Echeverria Other [facility] Other 01-06-2023 17:30-0400 Systolic blood pressure 103 mm[Hg] Marialuisa Echeverria Other [facility] Other 01-03-2023 10:35-0400 Body height 152.4 cm Marialuisa Echeverria Other [facility] Other 01-03-2023 10:35-0400 Body mass index (BMI) [Ratio] 23.43 kg/m2 Marialuisa Echeverria Other [facility] Other 01-03-2023 10:35-0400 Body temperature 97.8 [degF] Marialuisa Echeverria Other [facility] Other 01-03-2023 10:35-0400 Body weight 54.43 kg Marialuisa Echeverria Other [facility] Other 01-03-2023 10:35-0400 Respiratory rate 18 /min Marialuisa Echeverria Other [facility] Other 01-03-2023 10:35-0400 SaO2% (BldA) [Mass fraction] 97 % Marialuisa Echeverria Other [facility] Other 10-21-2022 15:40-0500 Body height 152.4 cm Beena Mosqueda Other [facility] Other 10-21-2022 15:40-0500 Body mass index (BMI) [Ratio] 19.53 kg/m2 Beena Mosqueda Other [facility] Other 10-21-2022 15:40-0500 Body temperature 98.4 [degF] Beena Mosqueda Other [facility] Other 10-21-2022 15:40-0500 Body weight 45.36 kg Beena Mosqueda Other [facility] Other 10-21-2022 15:40-0500 Respiratory rate 18 /min Beena Mosqueda Other [facility] Other 10-21-2022 15:40-0500 SaO2% (BldA) [Mass fraction] 96 % Beena Mosqueda Other [facility] Other Encounters Encounter Date Encounter Type Care Provider Facility Start: 02-15-2024 End: 02-16-2024 ambulatory CARMEN L FLORO Not Available Start: 02-08-2024 End: 02-08-2024 Emergency department patient visit CHIVO REDMOND [facility] Start: 02-06-2024 End: 02-06-2024 ambulatory CECIL [facility] Start: 01-18-2024 End: 01-19-2024 ambulatory CARMEN L FLORO Not Available Start: 01-11-2024 End: 01-11-2024 ambulatory ART UP [facility] Start: 12-25-2023 End: 12-25-2023 Emergency department patient visit CHIVO REDMOND [facility] Start: 12-21-2023 End: 12-22-2023 ambulatory CARMEN Akash FLORO Not Available Start: 11-30-2023 End: 12-01-2023 ambulatory CARMEN L FLORO Not Available Start: 11-30-2023 Bamboo flowsheet Carmen L Mor ro CNM Work Phone: [facility] Start: 11-30-2023 Bamboo flowsheet Carmen L Mor ro CNM Work Phone: [facility] Start: 11-30-2023 End: 11-30-2023 Subsequent care visit Carmen Taboro CNM Work Phone: [facility] Comment on above: History of section (Primary Dx); Screening, , for anatomic survey; Encounter for supervision of other normal , second trimester Start: 11-01-2023 End: 11-02-2023 ambulatory CARMEN L FLORO Not Available Start: 10-14-2023 End: 10-14-2023 Emergency department patient visit CHIVO REDMOND [facility] Start: 10-04-2023 End: 10-05-2023 ambulatory CARMEN Akash FLORO Not Available Start: 10-04-2023 End: 10-04-2023 Initial care visit Carmen Burns CNM Work Phone: [facility] Comment on above: GA: 8w0d Start: 05-24-2023 ambulatory Ovi Regalado acility:[facility] Start: 01-06-2023 End: 01-06-2023 ambulatory Marialuisa Echeverria Other [facility] Other Start: 01-06-2023 Office outpatient visit 25 minutes Marialuisa Echeverria [facility] Start: 01-03-2023 End: 01-03-2023 ambulatory Marialuisa Echeverria Other [facility] Other Start: 01-03-2023 Office outpatient ne w 30 minutes Marialuisa Echeverria [facility] Start: 01-03-2023 Telephone encounter Carlos Betts i [facility] Start: 10-21-2022 End: 10-21-2022 ambulatory Beena Cariasmond Other [facility] [employer] Other Start: 10-21-2022 Office outpatient ne w 20 minutes Beena Mosqueda [facility] Procedures Date Procedure Procedure Detail Performing Clinician Start: 11-01-2023 End: 11-01-2023 Culture bacterial quanttative colony count urine Carmen L Floro CNM Work Phone: Start: 11-01-2023 DRUG TOX MONITORIGN 6 W/ CONF,URINE Carmen L Floro CNM Work Phone: Start: 11-01-2023 URINALYSIS MICROSCOPIC Carmen L Floro CNM Work Phone: Start: 11-01-2023 Antibody screen rbc each serum technique Carmen L Floro CNM Work Phone: Start: 11-01-2023 Hemoglobin glycosyla bhargav a1c Carmen L Floro CNM Work Phone: Start: 11-01-2023 TSH W/REFLEX TO FT4 Divina jase L Floro CNM Work Phone: H/O: section History of section Carmen L Floro CNM Work Phone: Plan of Treatment Date Care Activity Detail Author Start: 12-21-2023 End: 12-21-2023 Professional / ancillary services management 12/21/2023 2:30 PM EST Ancillary Procedure [facility] [address] [facility] [address] [place] [address] [facility] Start: 12-21-2023 End: 12-21-2023 Patient encounter procedure 12/21/2023 2:00 PM EST Routine [facility] [address] [place] [address] Carmen Burns, CNM [address] [place] [address] [facility] Start: 11-30-2023 End: 11-30-2024 US for US OB 14+ weeks anatomy scan Imaging Routine Screening, , for anatomic survey Expected: 11/30/2023, Expires: 11/30/2024 [facility] Work Phone: Comment on above: Expected: 11/30/2023 , Expires: 11/30/2024 Start: 11-30-2023 End: 11-30-2023 Patient encounter procedure [facility] Comment on above: Arrived Payers Date Payer Category Payer Unknown [employer] [id number] 2023-Present [address] [place] [address] [id number] 2023 Self-pay 2022 Unknown [id number] 2022 Medicaid [id number] 2021 Medicare [id number] 2018 Unknown [id number] 2017 Private Health Insurance [id number] 1995 Unknown [id number] 2.16.840.1.348694.3.579.2. 1286 1995 Unknown [id number] 2.16.840.1.777833.3.579.2. 1286 1995 Unknown [id number] 2.16.840.1.716118.3.579.2. 1286 1995 Unknown [id number] 2.16.840.1.920862.3.579.2. 1286 1995 Unknown [id number] 2.16.840.1.485966.3.579.2. 1259 1995 Unknown [id number] 2.16.840.1.444341.3.579.2. 1259 1995 Unknown [id number] 2.16.840.1.844058.3.579.2. 1259 1995 Unknown [id number] 2.16.840.1.091290.3.579.2. 9 1995 Unknown [id number] 2.16.840.1.003457.3.579.2. 9 1995 Unknown [id number] 2.16.840.1.435486.3.579.2. 9 1995 Unknown [id number] 2.16.840.1.141415.3.579.2. 9 1995 Unknown [id number] 2.16.840.1.887849.3.579.2. 1259 Medicaid [id number] [id number] Unknown [id number] Social History Date Type Detail Facility Start: 06-06-2023 Sex Assigned At N [facility] [email or web address] Other Start: 04-07-2023 Tobacco smoking status NHIS Never smoked tobacco [facility] Start: 10-04-2023 Alcohol intake Not Asked [facility] Start: 06-06-2023 History of Social function [facility] Start: 04-07-2023 Alcohol Comment caffeine intak e: 1-2 cups per day. [facility] Start: 08-23-2023 [facility] Start: 1995 Sex Assigned At Not on file [facility] Start: 10-03-2023 Gender identity Identifies as female gender (finding) [facility] Goals Date Patient Goal Desired Activity /State Personal health goal History of Present illness Narrative 10-04-2023 Carmen Burns CNM - 10/04/2023 1:30 PM EST Note Date & Type Note Facility 10-04-2023 History of Presen t illness Narrative Subjective No chief complaint on file. Angeline Oh is a 28 y.o. at 8w0d with a working estimated date of delivery of 05/15/2024, by Last Menstrual Period who presents for a routine visit. She denies vaginal bleeding, leakage of fluid, decreased movements, and contractions. Her is complicated by: history of 2 sections, history of IUGR x2 The following portions of the chart were reviewed this encounter and updated as appropriate: Objective Physical Exam weight: 128 lb, Pregravid BMI: 25.00 Expected Total Weight Gain: 15 lb-25 lb Urine glucose-negative,protein-negative Labs: ordered Imaging Assessment/Plan Diagnoses and all orders for this visit: examination or test, positive result Amenorrhea Continue vitamin. Labs reviewed. Order placed for anatomy scan at 20 weeks. Follow up in 4 weeks for a routine visit. documented in this encounter [facility] Evaluation note 01-06-2023 Note Date & Type Note Facility 01-06-2023 Evaluation note Encounter Date Diagnosis Assessment Notes Dec, Bilateral acute otitis media (ICD-10 - H66.93) Take antibiotics as directed, complete entire course even if feeling better. Use OTC Flonase and Zyrtec as directed. Supportive care, Tylenol/Motrin as needed for aches/fever, warm compress to affected ear, push fluids and rest. Follow up with PCP if symptoms do not improve in the next 2-3 days. Immediate eval for severe ear pain, severe headache, neck pain/stiffness, pain, erythema, or redness behind the ear, fever, N/V, hearing loss, fever, or any other new or concerning symptoms. Patient verbalizes understanding and is agreeable to treatment plan. [facility] Other Evaluation note 01-03-2023 Note Date & Type Note Facility 01-03-2023 Evaluation note Encounter Date Diagnosis Assessment Notes Dec, Nausea (ICD-10 - R11.0) Dec, Viral URI (ICD-10 - J06.9) Advised patient that COVID/Influenza A/B/RSV PCR test and rapid Strep test was negative today. Advised patient that will treat as viral URI. Supportive care as directed, increase fluids and rest, Tylenol/Motrin as directed, OTC cough/cold remedies as directed on packaging, cool mist humidifier, throat lozenges. Will send in rx of Zofran to use as needed for nausea. Discussed infection control practices such as good hand washing and mask wearing. Patient to follow up with PCP if symptoms persist or worsen despite treatment. Work note provided, may extend x 1 day if needed. Immediate eval for SOB, difficulty breathing, chest pain, fevers that do not break with antipyretic or any other concerning symptoms as reviewed on patient education handout. Patient verbalizes understanding and is agreeable to treatment plan. Patient left in stable condition Dec, Contact with and (suspected) exposure to other viral communicable diseases (ICD-10 - Z20.828) Dec, Sore throat (ICD-10 - J02.9) [facility] Other Evaluation note 10-21-2022 Note Date & Type Note Facility 10-21-2022 Evaluation note Encounter Date Diagnosis Assessment Notes Oct, Cough (ICD-10 - R05.9) Oct, Sinusitis, unspecified chronicity, unspecified location (ICD-10 - J32.9) Sinusitis home care material was printed Drink plenty fluids, get plenty of rest. Take Mucinex and/or Sudafed for nasal congestion. Take Tylenol or Motrin as needed for aches pains or fevers. Follow-up with your family physician if no improvement in 2 to 3 days. [facility] Other Evaluation note Note Date & Type Note Facility Evaluation note No Information [employer] Other Evaluation note Note Date & Type Note Facility Evaluation note Diagnosis examination or test, positive result- Primary Amenorrhea Absence of menstruation documented in this encounter [facility] Evaluation note Note Date & Type Note Facility Evaluation note Diagnosis History of section- Primary Other postprocedural status Screening, , for anatomic survey Encounter for anatomic survey Encounter for supervision of other normal , second trimester documented in this encounter [facility] History general Narrative - Reported Note Date & Type Note Facility History general Narrative - Reported Type Medical History Depression Medical History Anxiety [facility] Other History general Narrative - Reported Note Date & Type Note Facility History general Narrative - Reported Type Medical History bipolar Medical History DM II Surgical History No know Surgical history Hospitalization History 2 child births [facility] Other Summary Purpose Family History No Family History Records FoundNo Family History Records FoundNo Family History Records FoundNo Family History Records FoundNo Family History Records FoundNo Family History Records Found Advance Directives No Advanced Directives Records FoundNo Advanced Directives Records FoundNo Advanced Directives Records FoundNo Advanced Directives Records FoundNo Advanced Directives Records FoundNo Advanced Directives Records Found Reason for Referral Specialty Diagnoses / Procedures Referred By Contangelo t Referred To Contact Obstetrics and Gynecology Diagnoses examination or test, positive result Amenorrhea Procedures HI OFFICE/OUTPATIENT [facility] 60-74 MINUTES Carmen Burns, CNM [address] [place] [address] Carmen Burns, CNM [address] [place] [address] Referral ID Status Reason Start Date Expiration Date V isits Requested Visits Authorized [id number] Denied Specialty Services Required 10/05/2023 04/02/2024 1 0 Referral ID Status Reason Start Date Expiration Date V isits Requested Visits Authorized [id number] Denied Specialty Services Required 10/04/2023 04/01/2024 1 0 Additional Source Comments INFORMATION SOURCE (unrecogn ized section and content) DATE CREATED AUTHOR 01/25/2022 [facility] dical Specialist DATE CREATED AUTHOR AUTHOR'S ORGANIZ ATION 10/05/2023 [facility] DATE CREATED AUTHOR AUTHOR'S ORGANIZ ATION 11/24/2023 [facility] DATE CREATED AUTHOR AUTHOR'S ORGANIZ ATION 02/07/2024 [facility] DATE CREATED AUTHOR AUTHOR'S ORGANIZ ATION 02/10/2024 [facility] DATE CREATED AUTHOR AUTHOR'S ORGANIZ ATION 02/19/2024 [facility] dical Specialists EPIC REASON FOR VISIT (unrecogniz ed section and content) SINUS CONGESTION, COUGHSORE THROAT, HEADACHE, NAUSEA, LOOSE STOOLNo InformationLEFT EAR FEELS FULL, MUFFLED SOUND, TINNITIS Care Teams (unrecognized sec tion and content) Tactical/Mobile Watch Officer Relationship Specialty Start Date End Date Unallocated, [facility] [address] [facility] [place] [address] PCP - General 04/10/23 Tactical/Mobile Watch Officer Relationship Specialty Start Date End Date Unallocated, [facility] [address] [place] [address] PCP - General 04/10/23 Tactical/Mobile Watch Officer Relationship Specialty Start Date End Date Unallocated, [facility] [address] [place] [address] PCP - General 04/10/23 FOR RECORDS PERTAINING TO PATIENTS WHO ARE OR HAVE BEEN ENROLLED IN A CHEMICAL DEPENDENCY/SUBSTANCEABUSE PROGRAM, SOME INFORMATION MAY BE OMITTED. This clinical summary was aggregated from multiple sources. Caution should be exercised in using it in the provision of clinical care. This summary normalizes information from multiple sources, and as a consequence, information in this document may materially change the coding, format and clinical context of patient data. In addition, data may be omitted in some cases. CLINICAL DECISIONS SHOULD BE BASED ON THE PRIMARY CLINICAL RECORDS. [facility] [employer] [facility]. provides no warranty or guarantee of the accuracy or completeness of information in this document.
[2024-02-27 21:46] VITALS: BP 102/67; PULSE 120; TEMP 36.1
[2024-02-27 22:04] LABS: Bilirubin Urine NEGATIVE (NEGATIVE); Blood Urine NEGATIVE (NEGATIVE); Clarity Urine CLEAR (CLEAR); Color Urine LT. YELLOW (YELLOW); Glucose Urine UA NEGATIVE (NEGATIVE); Ketones Urine TRACE mg/dL (NEGATIVE); Leukocyte Esterase Urine NEGATIVE (NEGATIVE); Nitrite Urine NEGATIVE (NEGATIVE); Protein Urine NEGATIVE (NEG/TRACE); Specific Gravity Urine 1.025 (1.005-1.025)
[2024-02-27 22:06] LABS: Urine Microscopic Indicated NO
[2024-02-27] MEDS: LACTATED RINGER'S SOLUTION 1,000 ML 1000 ML IV (23:05)
[2024-02-27 23:07] LABS: Basophils Absolute Auto 0.1 10^3/uL (0.0-0.1); Basophils Percent Auto 0.5 % (0.2-2.0); Eosinophils Absolute Auto 0.2 10^3/uL (0.0-0.7); Eosinophils Percent Auto 1.1 % (0.9-7.0); Hematocrit 33.3 % (36.0-48.0); Hemoglobin 11.4 g/dL (12.0-16.0); Immature Granulocytes Abs Auto 0.14 10^3/uL (0.00-0.03); Immature Granulocytes Pct Auto 0.8 % (0.0-0.5); Lymphocytes Absolute Auto 4.1 10^3/uL (1.2-3.8); Lymphocytes Percent Auto 23.3 % (20.5-60.0); Mean Corpuscular HGB Conc 34.2 g/dL (29.9-35.2); Mean Corpuscular Hemoglobin 29.8 pg (26.7-34.0); Mean Corpuscular Volume 87.2 fL (81.0-99.0); Mean Platelet Volume 9.4 fL (9.5-13.5); Monocytes Absolute Auto 0.9 10^3/uL (0.3-0.8); Monocytes Percent Auto 4.9 % (1.7-12.0); Neutrophils Absolute Auto 12.1 10^3/uL (1.4-6.5); Neutrophils Percent Auto 69.4 % (43.0-75.0); Platelet Count 277 10^3/uL (150-450); Red Blood Count 3.82 10^6/uL (4.20-5.40); Red Cell Distribution Width 13.1 % (11.0-15.0); White Blood Count 17.4 10^3/uL (4.0-11.0)
--- NOTE | 2024-02-27 23:11 | US_ITS ---
[address] [address] Patient Name: PEDRO BUSTOS MRN: [facility]:[id number] date: 1995 Sex: F Assigned Patient Location: [facility] Current Patient Location: [facility] Accession/Order Number: [id number] Exam Date: 02/27/2024 23:15 Report Date: 02/28/2024 00:26 At the request of: CARMEN GIFFORD Procedure: US OB placenta Examination:US OB placenta INDICATION:back pain COMPARISON:11/01/2023 TECHNIQUE:Real-time sonography of the fetus was performed. FINDINGS:A limited examination of the fetus was performed. There is a single live intrauterine gestation with cardiac activity. heartbeat 149 bpm was obtained. presentation is cephalic. BÁRBARA is 19.2 cm with the largest pocket of fluid measuring 7.2 cm. The placenta is anterior in location without obvious abnormalities based on this limited examination. US/US OB placenta IMPRESSION: Single live intrauterine gestation with cardiac activity. presentation is cephalic. BÁRBARA is 19.2 cm. Electronically authenticated by: JOANNE HUSAIN Date: 02/28/2024 00:26
[2024-02-27] MEDS: ACETAMINOPHEN 500 MG TABLET 1000 MG PO (23:15)
[2024-02-27 23:21] LABS: Alanine Aminotransferase 58 U/L (14-59); Albumin Globulin Ratio 0.6; Albumin Level 2.5 g/dL (3.4-5.0); Alkaline Phosphatase 122 U/L (46-116); Anion Gap 14.1; Aspartate Amino Transferase 32 U/L (15-37); BUN Creatinine Ratio 18.6; Bilirubin Total 0.3 mg/dL (0.2-1.0); Calcium 9.5 mg/dL (8.5-10.1); Carbon Dioxide 22.7 mmol/L (21.0-32.0); Chloride 101 mmol/L (98-107); Estimated GFR (African America >60 (>=60); Estimated GFR (Non-African Ame >60 (>=60); Globulin 4.3 g/dL; Glucose 93 mg/dL (74-106); Potassium 3.8 mmol/L (3.5-5.1); Sodium 134 mmol/L (136-145); Total Protein 6.8 g/dL (6.4-8.2)
== END 2024-02-28 01:10 | disposition home or self-care (01) ==
PROVIDERS: Admitting Provider Midwife; Visit Provider Midwife
DX: O26.893 Other specified pregnancy related conditions, third trimester (principal); M54.9 Dorsalgia, unspecified; O34.219 Maternal care for unspecified type scar from previous cesarean delivery; Z3A.28 28 weeks gestation of pregnancy
CPT/HCPCS: 36415; 59025; 76815; 80053; 81003; 85025; 87086; G0378; G0379

== ENCOUNTER 2024-04-13 10:32 | Observation (INO) | payer OTHER, SELFPAY ==
--- OUTSIDE RECORDS SUMMARY | 2024-04-13 10:37 | XMS_ITS | CCD ---
Author Organization [facility] ion [facility] Care Team Providers Care Delimber Operator Name Role Phone Beena Mosqueda Unavailable Marialuisa Echeverria Unavailable Carlos Perry Unavailable Ovi Walsh Attending Unavailab Ovi Flanagan Admitting Unavailab le NON STAFF Primary Care Unavailable Unallocated, Noms Provider Primary Care Provider ИРИНА CARMEN Referring Unavailable RUY, CHIVO THOMAS Primary Care Unavailable CECIL ROBLEDO Attending Unavailable FLORO, CARMEN Referring Unavailable RUY, CHIVO THOMAS Primary Care Unavailable RUY, CHIVO THOMAS Primary Care Unavailable JAMAL NAGEL Attending Unavailable ART UP Admitting Unavailable ART UP Attending Unavailable RUY, CHIVO THOMAS Primary Care Unavailable RUY, CHIVO THOMAS Primary Care Unavailable RUY, CHIVO THOMAS Primary Care Unavailable MENDY MANCUSO Attending Unavailable RUY, CHIVO THOMAS Referring Unavailable RUY, CHIVO THOMAS Primary Care Unavailable GRANT FIGUEROA Attending Unavailable FLORO, CARMEN Referring Unavailable RUY, CHIVO THOMAS Primary Care Unavailable MARIBELL CRUZ Attending Unavailable FLORO, CARMEN Referring Unavailable RUY, CHIVO THOMAS Primary Care Unavailable CHAUNCEY GONZALES Attending Unavailable FLORO, CARMEN Referring Unavailable RUY, [...] Attending Unavailable FLORO, CARMEN L Referring Unavailable MURPHY, CHRIS Attending Unavailable FLORO, CARMEN L Attending Unavailable Allergies Allergy Classification Reported Allergen(s) Allergy Type Date of Onset Reaction(s) Facility (4 sources) metFORMIN Drug Allergy Rash, Unknown [place] Other (1 source) metFORMIN Drug Allergy 01-07-20 [facility] Repository (7 sources) metFORMIN; Translations: [METFORMIN HCL] Drug Allergy 09-07-20 Unknown [facility] (7 sources) nickel sulfate; Translations: [NICKEL] Drug Allergy 12-26-19 Rash [facility] (7 sources) Sulfamethoxazole / Trimethoprim; Translations: [SULFAMETHOXAZOLE-T RIMETHOPRIM] Drug Allergy 09-07-20 Dizziness [facility] (2 sources) Latex; Translations: [LATEX] Propensity to adverse reactions [...] Start: 01-03-2023 take 1 tablet by [place] th every eight hours Ondansetron 4 MG 1 [...] 09/19/2022 Active take 1 capsule by mo uth every twenty-four hours Sertraline HCl 200 MG [...] (Therapy completed) take 1 tablet by [place] every twenty-four hours lamoTRIgine 100 MG 1 tablet Orally Once a day Active lamoTRIgine Acti ve Problems Active Problems Problem Classification Problem Date Documented Da te Episodic/Chronic Abdominal pain (5 sources) Abdominal pain; Translations: [Unspecified abdominal pain] Onset: 10-14-2023 Episodic Anxiety disorders (1 source) Panic attack Onset: 02-08-2024 Chronic Diabetes or abnormal glucose tolerance complicating ; childbirth; or the puerperium (2 sources) Gestational diabetes mellitus in , insulin controlled; Translations: [Gestational diabetes mellitus in , unspecified control] Onset: 03-13-2024 Episodic Disorders of teeth and jaw (1 source) Disorder of teeth and supporting structures, unspecified; Translations: [Disorder of teeth and supporting structures, unspecified] Onset: 02-06-2024 Episodic Esophageal disorders (3 sources) Gastro-esophageal reflux disease [...] source) Amenorrhea; Translations: [Amenorrhea, unspecified] 10-04-2023 Chronic Mood disorders (2 sources) Major depressive disorder, recurrent, moderate; Translations: [Major depressive disorder, recurrent, moderate] Onset: 08-22-2023 Chronic Nausea and vomiting (7 sources) Nausea; Translations: [Nausea] Episodic Other complications of (1 source) Other specified related conditions, second trimester; Translations: [Other specified related conditions, second trimester] Onset: 01-11-2024 Episodic Other complications of (1 source) Supervision of with other poor reproductive or obstetric history, unspecified trimester; Translations: [Supervision of with other poor reproductive or obstetric history, unspecified trimester] Onset: 02-06-2024 Episodic Other gastrointestinal disorders (3 sources) Irritable [...] (1 source) Otitis media, unspecified, bilateral Episodic Residual codes; unclassified (1 source) 30 weeks gestation of ; Translations: [30 weeks gestation of ] Onset: 03-13-2024 Episodic Unclassified (3 sources) OB Reminders Onset: 11-17-2023 11-17-2023 Unclassified (1 source) HX IUGR Onset: 02-06-2024 Unclassified (1 source) High Blood Pressure, 19 Weeks Onset: 12-25-2023 Unclassified (1 source) Abdominal Pain Onset: 10-14-2023 Unclassified (1 source) Add On Elevated Blood Glucose Onset: 03-13-2024 Unclassified (1 source) Gestational Diabetes Onset: 03-13-2024 Past or Other Problems Problem Classification Problem Date Documented Da te Episodic/Chronic Other complications of (1 source) Other specified related conditions, unspecified trimester; Translations: [Other specified related conditions, unspecified trimester] Onset: 10-14-2023 Episodic Unclassified (1 source) Cough R05.9 NEGATED: Highlighted row has been ruled out!Unclassified (4 sources) No known active problems 06-06-2023 Results Test Name Value Interpretation Reference Range Facility US OB FOLLOW UP TRANSABDOMIN AL APPROACHon 04-08-2024 OB FOLLOW UP TRANSABDOMINAL APPROACH FINDINGS: A single, live intrauterine is present with normal cardiac rate of 131 beats per minute. Normal activity and amniotic fluid volume. Amniotic fluid index is 23.0 cm. Morphology is grossly normal. The cervix is long and closed, 4.2 cm. The placenta is anterior, Grade 2 not associated with the cervical os. The current sonographic age is 33 weeks and 5 days, based on the following measurements: BPD 8.5cm (34 weeks, 2 days) Head Circumference 30.5cm (33 weeks, 6 days) Abdominal Circumference 29.8 cm ( 33weeks, 5 days) Femur Length 6.3cm (32 weeks,6 days) Presentation Breech Placenta Anterior, Grade 2. Weight (g) by Percentile 34.5% * These measurements result in an estimated date of delivery of May 22, 2024 The current estimated weight is 2222 grams ( 4 pound, 14ounces). IMPRESSION: 1. Single, live intrauterine , current sonographic age of 33 weeks and 5 days, with an estimated date of delivery of May 22, 2024. 2. Prior BÁRBARA on the biophysical profile on April 01, 2024 21 cm. * Estimated Weight (g) by Percentile is based upon an accurate estimated age based on last menstrual period. TRANSCRIBED BY: ELECTRONICALLY SIGNED BY: Mahamed Caldera MD Normal Not Available US BIOPHYSICAL PROFILE WO NON STRESS TESTINGon 04-01-2024 US BIOPHYSICAL PROFILE WO NON STRESS TESTING FINDINGS: Breathing Movements 0 Gross Body Movements 2 Tone 2 Qualitative amniotic fluid volume 2 A single, viable intrauterine is present. Breech presentation. heart rate 125 bpm. BÁRBARA 21 cm. Cervix 4.2 cm. The placenta is anterior Grade I not associated with the cervical os. IMPRESSION: 1. Biophysical profile 03/23 (0/2 for breathing) 2. 21 cm BÁRBARA TRANSCRIBED BY: ELECTRONICALLY SIGNED BY: Mahamed Caldera MD Normal Not Available US BIOPHYSICAL PROFILE WO NON STRESS TESTINGon 03-25-2024 US BIOPHYSICAL PROFILE WO NON STRESS TESTING FINDINGS: Breathing Movements 2 Gross Body Movements 2 Tone 2 Qualitative amniotic fluid volume 2 A single, viable intrauterine is present. Cephalic presentation. BÁRBARA 20 cm heart rate 165 bpm. The placenta is anterior, Grade I, not associated with the cervical os. Cervix measures 4.7 cm, closed. IMPRESSION: Normal biophysical profile 05/23 TRANSCRIBED BY: ELECTRONICALLY SIGNED BY: Mahamed Caldera MD Normal Not Available US OB FOLLOW UP TRANSABDOMIN AL APPROACHon 03-07-2024 OB FOLLOW UP TRANSABDOMINAL APPROACH FINDINGS: A single, live intrauterine is present with normal cardiac rate of 143 beats per minute. Normal activity and amniotic fluid volume. Amniotic fluid index is 15 cm. Morphology is grossly normal. The cervix is long and closed, 4.5 cm. The placenta is anterior, not associated with the cervical os. The current sonographic age is 30 weeks and 0 days, based on the following measurements: BPD 7.5 cm (30 weeks, 1 day) Head Circumference 27.5 cm (30 weeks, 0 days) Abdominal Circumference 25.9 cm (30 weeks, 1 day) Femur Length 5.7 cm (30 weeks, 0 days) Presentation Cephalic Placenta Anterior Grade I Weight (g) by Percentile 33.7 % * These measurements result in an estimated date of delivery of May 16, 2024. The current estimated weight is 1498 grams (3 pounds, 5 ounces). IMPRESSION: Single, live intrauterine , current sonographic age of 30 weeks and 0 days, with an estimated date of delivery of May 16, 2024. * Estimated Weight (g) by Percentile is based upon an accurate estimated age based on last menstrual period. TRANSCRIBED BY: ELECTRONICALLY SIGNED BY: Mahamed Caldera MD Normal Not Available URINALYSISon 01-11-2024 Bilirubin Ql (U) Negative Normal NEG [facility] Comment on above: Performed By: #### U A #### [facility] ([id number]) [address] [place] [address] 09063 BLOOD/HGB Negative Normal NEG [facility] Comment on above: Performed By: #### U A #### [facility] ([id number]) [address] [place] [address] 68418 Color (U) YELLOW Normal YELLOW [facility] Comment on above: Performed By: #### U A #### [facility] ([id number]) [address] [place] [address] 04336 Glucose Ql (U) Negative Normal NEG [facility] Comment on above: Performed By: #### U A #### [facility] ([id number]) [address] [place] [address] 96032 Ketones Ql (U) Trace Abnormal NEG [facility] Comment on above: Performed By: #### U A #### [facility] ([id number]) [address] [place] [address] 56317 Leukocyte esterase Test strip Ql (U) SMALL Abnormal NEG [facility] Comment on above: Performed By: #### U A #### [facility] ([id number]) [address] [place] [address] 43436 Nitrite Ql (U) Negative Normal NEG [facility] Comment on above: Performed By: #### U A #### [facility] ([id number]) [address] [place] [address] 79657 pH (U) 6.0 [pH] Normal 5.0-8.5 [facility] Comment on above: Performed By: #### U A #### [facility] ([id number]) [address] [place] [address] 46166 Protein Ql (U) Negative Normal NEG [facility] Comment on above: Performed By: #### U A #### [facility] ([id number]) [address] [place] [address] 86745 R.B.CELLS 0 to 1 Normal 0-5 [facility] Comment on above: Performed By: #### U A #### [facility] ([id number]) [address] [place] [address] 72280 Specific gravity (U) [Rel density] >1.030 Normal 1.003-1.035 [facility] Comment on above: Performed By: #### U A #### [facility] ([id number]) [address] [place] [address] 66816 SQUAMOUS EPITHELIUM 5 /hpf Normal 0-5 [facility] Comment on above: Performed By: #### U A #### [facility] ([id number]) [address] [place] [address] 04013 TURBIDITY HAZY Abnormal CLEAR [facility] Comment on above: Performed By: #### U A #### [facility] ([id number]) [address] [place] [address] [place] [address] Urobilinogen Qn (U) 0.2 {Afsaneh'U}/dL Normal <1.1 [facility] Comment on above: Performed By: #### U A #### [facility] ([id number]) [address] [place] [address] 42886 W.B.CELLS 30 /hpf High 0-5 [facility] Comment on above: Performed By: #### U A #### [facility] ([id number]) [address] [place] [address] 14152 URINE CULTUREon 01-11-2024 Bacteria identified Cx Nom (U) SPECIMEN NOTES URINE RECEIVED WITHOUT PRESERVATIVE CULTURE RESULTS 10-50,000 ORGANISMS/mL NORMAL UROGENITAL MANNY URINE RECEIVED WITHOUT PRESERVATIVE-DELAYS IN TRANSPORT MAY AFFECT RESULTS.INTERPRET WITH CAUTION AND CLINICAL CORRELATION IS RECOMMENDED. Normal [facility] Comment on above: Performed By: #### 6 30-4 #### [facility] ([id number]) [address], [address] [place] [address] CBC AND AUTO DIFFon 12-25-19 24 ABSOLUTE BASOPHIL 0.0 X10E9/L Normal 0.0-0.2 [facility] Comment on above: Performed By: #### C BCA, CMP #### [facility] ([id number]) [address] [place] [address] 76786 ABSOLUTE NEUTROPHIL 8.4 X10E9/L High 1.5-6.6 [facility] Comment on above: Performed By: #### C BCA, CMP #### [facility] ([id number]) [address] [place] [address] 08434 Basophils/100 WBC (Bld) 0.2 % Normal [facility] Comment on above: Performed By: #### C BCA, CMP #### [facility] ([id number]) [address] [place] [address] 03197 Eosinophils (Bld) [#/Vol] 0.1 10*3/uL Normal 0.0-0.4 [facility] Comment on above: Performed By: #### C BCA, CMP #### [facility] ([id number]) [address] [place] [address] 19456 Eosinophils/100 WBC (Bld) 1.0 % Normal [facility] Comment on above: Performed By: #### C BCA, CMP #### [facility] ([id number]) [address] [place] [address] 73190 Erythrocyte distribution width (RBC) [Ratio] 12.9 % Normal 11.5-15.0 [facility] Comment on above: Performed By: #### C BCA, CMP #### [facility] ([id number]) [address] [place] [address] 88468 Hematocrit (Bld) [Volume fraction] 36.6 % Normal 35-47 [facility] Comment on above: Performed By: #### C GEOVANNA, CMP #### [facility] ([id number]) [address] [place] [address] 52420 Hemoglobin (Bld) [Mass/Vol] 12.7 g/dL Normal 11.7-15.5 [facility] Comment on above: Performed By: #### C GEOVANNA, CMP #### [facility] ([id number]) [address] [place] [address] 66713 Lymphocytes (Bld) [#/Vol] 2.7 10*3/uL Normal 1.0-3.5 [facility] Comment on above: Performed By: #### C BCA, CMP #### [facility] ([id number]) [address] [place] [address] 65351 Lymphocytes/100 WBC (Bld) 23.0 % Normal [facility] Comment on above: Performed By: #### C BCA, CMP #### [facility] ([id number]) [address] [place] [address] 44517 MCH (RBC) [Entitic mass] 29.8 pg Normal 27-34 [facility] Comment on above: Performed By: #### C BCA, CMP #### [facility] ([id number]) [address] [place] [address] 19142 MCHC (RBC) [Mass/Vol] 34.8 g/dL Normal 32-36 [facility] Comment on above: Performed By: #### C BCA, CMP #### [facility] ([id number]) [address] [place] [address] 21831 MCV (RBC) [Entitic vol] 86 fL Normal 80-100 [facility] Comment on above: Performed By: #### C BCA, CMP #### [facility] ([id number]) [address] [place] [address] 10026 Monocytes (Bld) [#/Vol] 0.6 10*3/uL Normal 0-0.9 [facility] Comment on above: Performed By: #### C BCA, CMP #### [facility] ([id number]) [address] [place] [address] 20733 Monocytes/100 WBC (Bld) 4.9 % Normal [facility] Comment on above: Performed By: #### C BCA, CMP #### [facility] ([id number]) [address] [place] [address] 54585 Neutrophils/100 WBC (Bld) 70.9 % Normal [facility] Comment on above: Performed By: #### C BCA, CMP #### [facility] ([id number]) [address] [place] [address] 78100 Platelet mean volume (Bld) [Entitic vol] 7.6 fL Normal 7-12 [facility] Comment on above: Performed By: #### C BCA, CMP #### [facility] ([id number]) [address] [place] [address] 82423 Platelets (Bld) [#/Vol] 315 10*3/uL Normal 150-450 [facility] Comment on above: Performed By: #### C BCA, CMP #### [facility] ([id number]) [address] [place] [address] 46635 RBC COUNT 4.27 X10E12/L Normal 3.80-5.20 [facility] Comment on above: Performed By: #### C BCA, CMP #### [facility] ([id number]) [address] [place] [address] 10369 WBC (Bld) [#/Vol] 11.9 10*3/uL High 4.0-11.0 [facility] Comment on above: Performed By: #### C BCA, CMP #### [facility] ([id number]) [address] [place] [address] 27153 COMPREHENSIVE METABOLIC PANE Radames 12-25-2023 Albumin [Mass/Vol] 3.4 g/dL Normal 3.2-5.3 [facility] Comment on above: Performed By: #### C BCA, CMP #### [facility] ([id number]) [address] [place] [address] 99747 ALP [Catalytic activity/Vol] 104 U/L Normal 39-130 [facility] Comment on above: Performed By: #### C BCA, CMP #### [facility] ([id number]) [address] [place] [address] 13770 ALT [Catalytic activity/Vol] 46 U/L High 0-31 [facility] Comment on above: Performed By: #### C BCA, CMP #### [facility] ([id number]) [address] [place] [address] 13245 Anion gap [Moles/Vol] 6 mmol/L Normal 5-15 [facility] Comment on above: Performed By: #### C BCA, CMP #### [facility] ([id number]) [address] [place] [address] 43040 AST [Catalytic activity/Vol] 28 U/L Normal 0-41 [facility] Comment on above: Performed By: #### C BCA, CMP #### [facility] ([id number]) [address] [place] [address] 43417 Bilirubin [Mass/Vol] 0.4 mg/dL Normal 0.3-1.2 [facility] Comment on above: Performed By: #### C BCA, CMP #### [facility] ([id number]) [address] [place] [address] 80821 Calcium [Mass/Vol] 9.3 mg/dL Normal 8.5-10.5 [facility] Comment on above: Performed By: #### C BCA, CMP #### [facility] ([id number]) [address] [place] [address] 23150 Chloride [Moles/Vol] 103 mmol/L Normal 98-109 [facility] Comment on above: Performed By: #### C BCA, CMP #### [facility] ([id number]) [address] [place] [address] 93293 CO2 [Moles/Vol] 23 mmol/L Normal 22-32 [facility] Comment on above: Performed By: #### C BCA, CMP #### [facility] ([id number]) [address] [place] [address] 45776 Creatinine [Mass/Vol] 0.51 mg/dL Normal 0.40-1.00 [facility] Comment on above: Result Comment: METH OD TRACEABLE TO IDMS STANDARD Performed By: #### C BCA, CMP #### [facility] ([id number]) [address] [place] [address] [place] [address] eGFR (CKD-EPI) NON-RACE DEPENDENT >90 Normal >59 [facility] Comment on above: Result Comment: Reported eGFR is based on the CKD-EPI 2020 equation that does not use a race coefficient. Performed By: #### C BCA, CMP #### [facility] ([id number]) [address] [place] [address] 68248 Glucose [Mass/Vol] 88 mg/dL Normal 65-99 [facility] Comment on above: Performed By: #### C BCA, CMP #### [facility] ([id number]) [address] [place] [address] 16060 Potassium [Moles/Vol] 3.7 mmol/L Normal 3.5-5.0 [facility] Comment on above: Performed By: #### C BCA, CMP #### [facility] ([id number]) [address] [place] [address] 02901 Protein [Mass/Vol] 7.2 g/dL Normal 6.0-8.0 [facility] Comment on above: Performed By: #### C BCA, CMP #### [facility] ([id number]) [address] [place] [address] 03291 Sodium [Moles/Vol] 132 mmol/L Low 134-146 [facility] Comment on above: Performed By: #### C BCA, CMP #### [facility] ([id number]) [address] [place] [address] 93206 Urea nitrogen [Mass/Vol] 10 mg/dL Normal 5-23 [facility] Comment on above: Performed By: #### C BCA, CMP #### [facility] ([id number]) [address] [place] [address] 10216 URN MACROSCOPIC NURon 2023 BILIRUBIN TITO Negative Normal NEG [facility] Comment on above: Performed By: #### N UM #### [facility] ([id number]) [address] [place] [address] 96966 BLOOD/HGB TITO Negative Normal NEG [facility] Comment on above: Performed By: #### N UM #### [facility] ([id number]) [address] [place] [address] 40861 GLUCOSE TITO 100 mg/dL Abnormal NEG [facility] Comment on above: Performed By: #### N UM #### [facility] ([id number]) [address] [place] [address] 45350 KETONES TITO Negative Normal NEG [facility] Comment on above: Performed By: #### N UM #### [facility] ([id number]) [address] [place] [address] 16522 LEUKOCYTE ESTERASE TITO Trace Abnormal NEG [facility] Comment on above: Performed By: #### N UM #### [facility] ([id number]) [address] [place] [address] 95547 NITRITE TITO Negative Normal NEG [facility] Comment on above: Performed By: #### N UM #### [facility] ([id number]) [address] [place] [address] 34788 PH TITO 6.0 Normal 5.0-8.5 [facility] Comment on above: Performed By: #### N UM #### [facility] ([id number]) [address] [place] [address] 77943 PROTEIN TITO Negative Normal NEG [facility] Comment on above: Performed By: #### N UM #### [facility] ([id number]) [address] [place] [address] 25082 SPECIFIC GRAVITY TITO 1.020 Normal 1.003-1.035 [facility] Comment on above: Performed By: #### N UM #### [facility] ([id number]) [address] [place] [address] [place] [address] UROBILINOGEN TITO 0.2 eu/dL Normal <1.1 [facility] Comment on above: Performed By: #### N UM #### [facility] ([id number]) [address] [place] [address] 77055 US OB 14+ WEEKS ANATOMY SCAN on [...] [facility] Internal identifier for Provider [id number] [facility] Specimen source Nom (Unsp spec) URINE [facility] STATUS FINAL [facility] DRUG TOX MONITORIGN 6 W/ CON F,URINEon 11-03-2023 3-Olkspuftzn-2,5-Dimethy l-3,3-Diphenylpyrrolidin e (EDDP) Ql (U) Negative NINF [...] Negative NINF - 100 ng/mL [facility] oxyCODONE Ql (U) Negative NINF - 100 ng/mL [facility] Phencyclidine Ql (U) Negative NINF - 25 ng/mL [facility] Tetrahydrocannabinol Screen method >20 ng/mL Ql (U) Negative NINF - 20 ng/mL [facility] N. gonorrhoeae DNA ANTONIO+probe Ql (Cervical mucus)on 11-03-2023 C. trachomatis rRNA ANTONIO+probe Ql (Unsp spec) Not detected NOT DETECTED [facility] N. gonorrhoeae rRNA ANTONIO+probe Ql (Unsp spec) Not detected NOT DETECTED [facility] No Panel Informationon 11-03 (ALWAYS MESSAGE) [facility] Comment on above: See Note 1 Note 1 This drug testing is for medical treatment only. Analysis was performed as non-forensic testing and these results should be used only by healthcare providers to render diagnosis or treatment, or to monitor progress of medical conditions. For assistance with interpreting these drug results, please contact a [facility] Toxicology Specialist: [phone] ( ), M-F, 8am-6pm EST. The analytical perfo rmance characteristics of this assay, when used to test SurePath(TM) specimens have been determined by [employer]. The modifications have not been cleared or approved by the FDA. This assay has been validated pursuant to the CLIA regulations and is used for clinical purposes. For additional information, please refer to https://education.[employer]/faq/YOF275 (This link is being provided for information/ educational purposes only.) SPLIT 11/01/2023 FROM [id number] [employer] Organization Information Site ID: QPT Name: [facility] Address: [address] [place] [address], [address] [place] [id number] Director: Arturo Nobles MD [facility] URINALYSIS MICROSCOPICon Bacteria LM.HPF (Urine sed) [#/Area] NONE SEEN NONE SEEN /HPF [facility] Epithelial cells.squamous LM.HPF (Urine sed) [#/Area] 6-10 Abnormal < OR = 5 /HPF [facility] Hyaline casts (Urine sed) [#/Area] NONE SEEN NONE SEEN /LPF [facility] Interpretation and review of laboratory results Abnormal [facility] RBC LM.HPF (Urine sed) [#/Area] 0-2 < OR = 2 /HPF [facility] WBC LM.HPF (Urine sed) [#/Area] NONE SEEN < OR = 5 /HPF [facility] Urine cultureon 11-03-2023 Bacteria identified Cx Nom (U) SEE NOTE [facility] Comment on above: No Growth ABO/Rhon 11-02-2023 ABO group Nom (Bld) B [facility] Rh Nom (Bld) Positive [facility] are Comment on above: For additional information, please refer to http://education.Tempolib/faq/JEU523 (This link is being provided for informational/ educational purposes only.) Antibody screenon 11-02-2023 Blood group antibody screen Ql Detected [facility] Comment on above: Reference range No antibodies detected This assay is a screening test for the detection of red blood cell antibodies. The test is not to be used for pretransfusion screening or for the medical management of an alloimmunized . CBC panel Auto (Bld)on 11-02 Erythrocyte distribution width (RBC) [Ratio] 12.6 % 11.0 - 15.0 % [facility] Hematocrit (Bld) [Volume fraction] 39.5 % 35.0 - 45.0 % [facility] Hemoglobin (Bld) [Mass/Vol] 13.3 g/dL 11.7 - 15.5 g/dL [facility] MCH (RBC) [Entitic mass] 30.1 pg 27. 0 - 33.0 pg [facility] MCHC (RBC) [Mass/Vol] 33.7 g/dL 32.0 - 36.0 g/dL [facility] MCV (RBC) [Entitic vol] 89.4 fL 80.0 - 100.0 fL [facility] Platelet mean volume (Bld) [Entitic vol] 10.1 fL 7.5 - 12.5 fL [facility] Platelets (Bld) [#/Vol] 331 10*3/uL [facility] RBC (Bld) [#/Vol] 4.42 10*6/uL [facility] WBC (Bld) [#/Vol] 12.2 10*3/uL High [facility] HIV-1 and HIV-2 antibodieson 11-02-2023 HIV 1+2 Ab+HIV1 p24 Ag IA Ql Non-Reactive NON-REACTIVE [facility] Comment on above: HIV-1 antigen and HI [...] purpose. For additional information please refer to http://Animal Innovations.MyDream Interactive/faq/IDK225 (This link is being provided for informational/ educational purposes only.) The performance of this assay has not been clinically validated in patients less than 2 years old. Hemoglobin A1con 11-02-2023 HbA1c (Bld) [Mass fraction] 5.9 % High [facility] Comment on above: For someone without [...] of diabetes for children. HbA1c performed on [employer] platform. Effective 10/03/23 a change in test platforms may have shifted HbA1c results compared to historical results. Hepatitis B surface antigeno n 11-02-2023 HBV surface Ag IA Ql Non-Reactive NON-REACTIVE [facility] Comment on above: For additional information, please refer to http://Animal Innovations.MyDream Interactive/faq/ZDJ936 (This link is being provided for informational/ educational purposes only.) Hepatitis C antibodyon 11-02 HCV Ab IA Ql Non-Reactive NON-REACTIVE [facility] Comment on above: HCV antibody was non-reactive. There is no laboratory evidence of HCV infection. In most cases, no further action is required. However, if recent HCV exposure is suspected, a test for HCV RNA (test code 58209) is suggested. For additional information please refer to http://education.MyDream Interactive/faq/UPZ21v0 (This link is being provided for informational/ educational purposes only.) No Panel Informationon 11-02 Interpretation and review of laboratory results Abnormal [facility] PATIENT UNABLE TO VOID; ADVISED TO RETURN FOR COLLECTION. [employer] Organization Information Site ID: QPT Name: [facility] Address: [address] [facility] [place] [address] Director: Arturo Nobles MD [facility] 11-02-2023 Reagin Ab RPR Ql (S) Non-Reactive NON-REACTIVE [facility] Rubella antibody, IgGon 10-16 Rubella virus IgG Qn (S) 1.06 [IU]/mL Index [facility] Comment on above: Index Interpretation ----- <0.90 Not consistent with immunity 0.90-0.99 Equivocal > or = 1.00 Consistent with immunity The presence of rubella IgG antibody suggests immunization or past or current infection with rubella virus. TSH W/REFLEX TO FT4on 2023 TSH Qn 2.06 m[IU]/L mIU/L [facility] Comment on above: Reference Range > or = 20 Years 0.40-4.50 Ranges First trimester 0.26-2.66 Second trimester 0.55-2.73 Third trimester 0.43-2.91 URINE CULTUREon 10-14-2023 Bacteria identified Cx Nom (U) CULTURE RESULTS <10,000 ORGANISMS/ML NORMAL URO GENITAL MANNY Normal [facility] Comment on above: Performed By: #### 6 30-4 #### [facility] ([id number]) [address] [place] [address] URN MACROSCOPIC NURon 2022 BILIRUBIN TITO Negative Normal NEG [facility] Comment on above: Performed By: #### N UM #### [facility] ([id number]) [address] [place] [address] BLOOD/HGB TITO Trace Abnormal NEG [facility] Comment on above: Performed By: #### N UM #### [facility] ([id number]) [address] [place] [address] GLUCOSE TITO Negative Normal NEG [facility] Comment on above: Performed By: #### N UM #### [facility] ([id number]) [address] [place] [address] KETONES TITO Trace Abnormal NEG [facility] Comment on above: Performed By: #### N UM #### [facility] ([id number]) [address] [place] [address] LEUKOCYTE ESTERASE TITO Negative Normal NEG [facility] Comment on above: Performed By: #### N UM #### [facility] ([id number]) [address] [place] [address] NITRITE TITO Negative Normal NEG [facility] Comment on above: Performed By: #### N UM #### [facility] ([id number]) [address] [place] [address] PH TITO 7.0 Normal 5.0-8.5 [facility] Comment on above: Performed By: #### N UM #### [facility] ([id number]) [address] [place] [address] PROTEIN TITO Negative Normal NEG [facility] Comment on above: Performed By: #### N UM #### [facility] ([id number]) [address] [place] [address] SPECIFIC GRAVITY TITO 1.025 Normal 1.003-1.035 [facility] Comment on above: Performed By: #### N UM #### [facility] ([id number]) [address] [place] [address] [place] [address] UROBILINOGEN TITO 0.2 eu/dL Normal <1.1 [facility] Comment on above: Performed By: #### N UM #### [facility] ([id number]) [address] [place] [address] US OB < 14 WEEKS EARLYon US [...] (COVID-19) RNA ANTONIO+probe Ql (Unsp spec) Negative [facility] Other COVID/FLU/RSV RT-PCR Negative [facility] Other Quick Strepon 01-03-2023 S. pyogenes Org specific cx Ql (Throat) Negative [facility] Other Quick Strep [facility] Other COVID/FLU/RSV RT-PCRon 10-21 SARS-CoV-2 (COVID-19) RNA ANTONIO+probe Ql (Unsp spec) Negative [facility] Other COVID/FLU/RSV RT-PCR Negative [facility] Other Q - SURESWAB ADVANCED VAGINI TIS PLUSon 01-21-2022 SENIA GLABRATA Not detected Normal NOT DETECTED [facility] Comment on above: Order Comment: [facility] performed at: QPT, [facility], [address], [address] [place], [address], Liner Checker: Arturo Nobles MD [facility] Collection Date/Time: [facility] Results Received Date/Time: [facility] Reported Date/Time: Result Comment: Senia species C. albicans, C. tropicalis, C. parapsilosis, and/or C. dubliniensis can be detected, but not differentiated, in the Senia spp. result. Performed By: #### 1 0120 #### [facility] Default [address] [place] [address] SENIA SPECIES Not detected Normal NOT DETECTED [facility] Comment on above: Order Comment: [facility] performed at: [employer], [facility], [address] [place] [address], [address] [place] [address], [address] [place] [address], Liner Checker: Arturo Nobles MD [facility] Date/Time: [facility] Results Received Date/Time: [facility] Reported Date/Time: Performed By: #### 1 0120 #### [facility] Default [address] [place] [address] CHLAMYDIA TRACHOMATIS RNA, TMA, UROGENITAL Not detected Normal NOT DETECTED [facility] Head Resident Comment on above: Order Comment: [facility] performed at: [facility], [address] [facility], [address] [place] [address], [address] [place] [address], Liner Checker: Arturo Nobles MD [facility] Date/Time: [facility] Results Received Date/Time: [facility] Reported Date/Time: Performed By: #### 1 0120 #### [facility] Default [address] [place] [address] NEISSERIA GONORRHOEAE RNA, TMA, UROGENITAL Not detected Normal NOT DETECTED [facility] Head Resident Comment on above: Order Comment: [facility] performed at: [facility], [address] , [address] [place] [address], [address] [place] [address], Liner Checker: Arturo Nobles MD [facility] Date/Time: [facility] Results Received Date/Time: [facility] Reported Date/Time: Result Comment: For additional information, please refer to https://education.MyDream Interactive/faq/SJD826 (This link is being provided for information/ educational purposes only.) Performed By: #### 1 0120 #### [facility] Default [address] [place] [address] SURESWAB(R) ADV BACTERIAL VAGINOSIS (BV), TMA Negative Normal NEGATIVE [facility] Specialist Comment on above: Order Comment: [facility] performed at: [employer], [facility], [address], [address] [place] [address], [address], Liner Checker: Arturo Nobles MD [facility] Date/Time: [facility] Results Received Date/Time: [facility] Reported Date/Time: Performed By: #### 1 0120 #### [facility] Default [address] [place] [address] TRICHOMONAS VAGINALIS (TV), TMA Not detected Normal NOT DETECTED [facility] Specialist Comment on above: Order Comment: [facility] performed at: [employer], [facility], [address], [address] [place] [address], [address] [place] [address], Liner Checker: Arturo Nobles MD [facility] Date/Time: [facility] Results Received Date/Time: [facility] Reported Date/Time: Performed By: #### 1 0120 #### [facility] Default [address] [place] [address] Vital Signs Date Time Vital Sign Value Performing Clinician Facility 11-30-2023 13:31-0500 Body mass index (BMI) [Ratio] 24.61 kg/m2 Carmen [facility] Work Phone: [facility] 11-30-2023 13:31-0500 Body weight 57.15 kg Carmen [facility] Work Phone: [facility] 11-30-2023 13:31-0500 Diastolic blood pressure 60 mm[Hg] Carmen [facility] Work Phone: [facility] 11-30-2023 13:31-0500 Systolic blood pressure 110 mm[Hg] Carmen CAMEJO Work Phone: [facility] 10-04-2023 13:46-0500 Body mass index (BMI) [Ratio] 25 kg/m2 Carmen CAMEJO Work Phone: [facility] 10-04-2023 13:46-0500 Body weight 58.06 kg Carmen CAMEJO Work Phone: [facility] 01-06-2023 17:30-0400 Body height 152.4 cm Marialuisa Echeverria Other [facility] Other 01-06-2023 17:30-0400 Body mass index (BMI) [Ratio] 23.51 kg/m2 Marialuisa Echeverria Other [facility] Other 01-06-2023 17:30-0400 Body temperature 96.6 [degF] Marialusia Echeverria Other [facility] Other 01-06-2023 17:30-0400 Body weight 54.61 kg Marialuisa Echeverria Other [facility] Other 01-06-2023 17:30-0400 Diastolic blood pressure 70 mm[Hg] Marialuisa Echeverria Other [facility] Other 01-06-2023 17:30-0400 Respiratory rate 18 /min Marialuisa Echeverria Other [facility] Other 01-06-2023 17:30-0400 SaO2% (BldA) [Mass fraction] 97 % Marialuisa Echeverria Other [facility] Other 01-06-2023 17:30-0400 Systolic blood pressure 103 mm[Hg] Marialuisa Echeverria Other [facility] Other 01-03-2023 10:35-0400 Body height 152.4 cm Marialuisa Echeverria Other [facility] Other 01-03-2023 10:35-0400 Body mass index (BMI) [Ratio] 23.43 kg/m2 Marialuisa Echeverria Other [facility] Other 01-03-2023 10:35-0400 Body temperature 97.8 [degF] Marialuisa Echeverria Other [facility] Other 01-03-2023 10:35-0400 Body weight 54.43 kg Marialuisa Echeverria Other [facility] Other 01-03-2023 10:35-0400 Respiratory rate 18 /min Marialuisa Echeverria Other [facility] Other 01-03-2023 10:35-0400 SaO2% (BldA) [Mass fraction] 97 % Marialuisa Echeverria Other [facility] Other 10-21-2022 15:40-0500 Body height 152.4 cm Beena Jaylin Other [facility] Other 10-21-2022 15:40-0500 Body mass index (BMI) [Ratio] 19.53 kg/m2 Beena Jaylin Other [facility] Other 10-21-2022 15:40-0500 Body temperature 98.4 [degF] Beena Jaylin Other [facility] Other 10-21-2022 15:40-0500 Body weight 45.36 kg Beena Mosqueda Other [facility] Other 10-21-2022 15:40-0500 Respiratory rate 18 /min Beena Mosqueda Other [facility] Other 10-21-2022 15:40-0500 SaO2% (BldA) [Mass fraction] 96 % Beena Mosqueda Other [facility] Other Encounters Encounter Date Encounter Type Care Provider Facility Start: 04-11-2024 ambulatory CARMEN L FLORO Not Rin ilable Start: 04-11-2024 End: 04-11-2024 ambulatory CHRIS MURPHY Not Available Start: 04-08-2024 End: 04-08-2024 ambulatory CARMEN L FLORO Not Available Start: 04-04-2024 End: 04-04-2024 ambulatory CARMEN L FLORO Not Available Start: 04-01-2024 End: 04-01-2024 ambulatory CARMEN L FLORO Not Available Start: 03-28-2024 End: 03-28-2024 ambulatory CARMEN L FLORO Not Available Start: 03-25-2024 End: 03-25-2024 ambulatory CARMEN L FLORO Not Available Start: 03-21-2024 End: 03-21-2024 ambulatory CARMEN L FLORO Not Available Start: 03-20-2024 End: 03-20-2024 ambulatory CHAUNCEY GONZALES [facility] Start: 03-13-2024 End: 03-13-2024 [facility] Start: 03-13-2024 End: 03-13-2024 ambulatory GRANT Sigala HENRY [facility] Start: 03-08-2024 End: 03-08-2024 ambulatory MENDY MANCUSO [facility] Start: 03-07-2024 End: 03-07-2024 ambulatory CARMEN L FLORO Not Available Start: 02-15-2024 End: 02-15-2024 ambulatory CARMEN L FLORO Not Available Start: 02-08-2024 End: 02-08-2024 Emergency department patient visit CHIVO REDMOND [facility] Start: 02-06-2024 End: 02-06-2024 ambulatory CECIL [facility] Start: 01-18-2024 End: 01-18-2024 ambulatory CARMEN L FLORO Not Available Start: 01-11-2024 End: 01-11-2024 ambulatory ART UP [facility] Start: 12-25-2023 End: 12-25-2023 Emergency department patient visit CHIVO REDMOND [facility] Start: 12-21-2023 End: 12-21-2023 ambulatory CARMEN L FLORO Not Available Start: 11-30-2023 Bamboo flowsheet Carmen L Mor ro CNM Work Phone: [facility] Start: 11-30-2023 Bamboo flowsheet Carmen L Mor ro CNM Work Phone: [facility] Start: 11-30-2023 End: 11-30-2023 Subsequent care visit Carmen L Floro CNM Work Phone: [facility] Comment on above: History of section (Primary Dx); Screening, , for anatomic survey; Encounter for supervision of other normal , second trimester Start: 11-30-2023 End: 11-30-2023 ambulatory CARMEN L FLORO Not Available Start: 11-01-2023 End: 11-01-2023 ambulatory CARMEN L FLORO Not Available Start: 10-14-2023 End: 10-14-2023 Emergency department patient visit CHIVO REDMOND [facility] Start: 10-04-2023 End: 10-04-2023 Initial care visit Carmen Bustos Floro CNM Work Phone: [facility] Comment on above: GA: 8w0d Start: 10-04-2023 End: 10-04-2023 ambulatory CARMEN L FLORO Not Available Start: 05-24-2023 ambulatory Ovi Regalado acility:[facility] Start: 01-06-2023 End: 01-06-2023 ambulatory Marialuisa Echeverria Other [facility] Other Start: 01-06-2023 Office outpatient visit 25 minutes Marialuisa Echeverria [facility] Start: 01-03-2023 End: 01-03-2023 ambulatory Marialuisa Echeverria Other [facility] Other Start: 01-03-2023 Office outpatient ne w 30 minutes Marialuisa Echeverria [facility] Start: 01-03-2023 Telephone encounter Carlos Betts i [facility] Start: 10-21-2022 End: 10-21-2022 ambulatory Beena Mosqueda Other [facility] Other Start: 10-21-2022 Office outpatient ne w [...] EST Ancillary Procedure [facility] [address] [address] [facility] Start: 12-21-2023 End: 12-21-2023 Patient encounter procedure 12/21/2023 2:00 PM EST Routine [facility] [address] [place] [address] Carmen Burns, CNM [address] [place], [place] [id number] [facility] Start: 11-30-2023 End: 11-30-2024 US for US OB 14+ weeks anatomy scan Imaging Routine Screening, , for anatomic survey Expected: 11/30/2023, Expires: 11/30/2024 [facility] Work Phone: Comment on above: Expected: 11/30/2023 , Expires: 11/30/2024 Start: 11-30-2023 End: 11-30-2023 Patient encounter procedure [facility] Comment on above: Arrived Payers Date Payer Category Payer Unknown [employer] [id number] 2023-Present [address] [place] [address] [id number] 2023 Self-pay 2022 Unknown [id number] 2022 Medicaid [id number] 2021 Medicare [id number] 2018 Unknown [id number] 2017 Private Health Insurance [id number] 1995 Unknown [id number] 2.16.840.1.795476.3.579.2. 1286 1995 Unknown [id number] 2.16.840.1.720404.3.579.2. 1285 1995 Unknown [id number] 2.16840.1.307572.3.579.2. 1285 1995 Unknown [id number] 2.16840.1.278018.3.579.2. 1285 1995 Unknown [id number] 2.16840.1.101386.3.579.2. 1285 1995 Unknown [id number] 2.840.1.795252.3.579.2. 1285 1995 Unknown [id number] 2.16840.1.717864.3.579.2. 1285 1995 Unknown [id number] 2.840.1.213876.3.579.2. 1285 1995 Unknown [id number] 2.840.1.363593.3.579.2. 1258 1995 Unknown [id number] 2.840.1.967654.3.579.2. 1258 1995 Unknown [id number] 2.840.1.281716.3.579.2. 1258 1995 Unknown [id number] 2.840.1.699601.3.579.2. 1258 1995 Unknown [id number] 2.840.1.367704.3.579.2. 1258 1995 Unknown [id number] 2.840.1.802168.3.579.2. 1258 1995 Unknown [id number] 2.16840.1.646520.3.579.2. 1258 1995 Unknown [id number] 2.16840.1.327320.3.579.2. 1258 1995 Unknown [id number] 2.16840.1.081364.3.579.2. 1258 1995 Unknown [id number] 2.16840.1.865260.3.579.2. 12581995 Unknown [id number] 2.16.840.1.643927.3.579.2. 1258 1995 Unknown [id number] 2.16.840.1.531947.3.579.2. 1258 1995 Unknown [id number] 2.16.840.1.134525.3.579.2. 1258 1995 Unknown [id number] 2.16.840.1.815316.3.579.2. 1258 1995 Unknown [id number] 2.16.840.1.516005.3.579.2. 1258 1995 Unknown [id number] 2.16.840.1.139498.3.579.2. 1258 1995 Unknown [id number] 2.16.840.1.557601.3.579.2. 1258 1995 Unknown [id number] 2.16.840.1.174157.3.579.2. 1259 Medicaid [id number] 2.16.840.1.960695.19 Unknown [id number] Social History Date Type Detail Facility Start: 06-06-2023 Sex Assigned At N [facility] Other Start: 04-07-2023 Tobacco smoking status NHIS Never smoked tobacco [facility] Start: 10-04-2023 Alcohol intake Not Asked [facility] Start: 06-06-2023 History of Social function [facility] Start: 04-07-2023 Alcohol Comment caffeine intak e: 1-2 cups per day. [facility] Start: 08-23-2023 [facility] Start: 1995 Sex Assigned At Not on file N [facility] Start: 10-03-2023 Gender identity Identifies as [...] a routine visit. documented in this encounter [facility] Evaluation note 01-06-2023 Note Date & Type [...] understanding and is agreeable to treatment plan. [facility] Other Evaluation note 01-03-2023 Note Date & [...] Z20.828) Dec, Sore throat (ICD-10 - J02.9) [facility] Other Evaluation note 10-21-2022 Note Date & [...] no improvement in 2 to 3 days. [facility] Other Evaluation note Note Date & Type Note Facility Evaluation note No Information [facility] Other Evaluation note Note Date & Type [...] , second trimester documented in this encounter [facility] Healthcare History general Narrative - Reported Note Date & Type Note Facility History general Narrative - Reported Type Medical History Depression Medical History Anxiety [facility] Other History general Narrative - Reported Note Date & Type Note Facility History general Narrative - Reported Type Medical History bipolar Medical History DM II Surgical History No know Surgical history Hospitalization History 2 child births [facility] Other Summary Purpose Family History No Family [...] Referral Specialty Diagnoses / Procedures Referred By Hiram rangel Referred To Contact Obstetrics and Gynecology Diagnoses examination or test, positive result Amenorrhea Procedures ME OFFICE/OUTPATIENT NEW HIGH MDM 60-74 MINUTES Carmen Burns, CNM [address] [place] [address] Carmen Burns, CNM [address] [place] [address] Referral ID Status Reason Start Date Expiration Date V isits Requested Visits Authorized [id number] Denied Specialty Services Required 10/05/2023 04/02/2024 1 0 Referral ID Status Reason Start Date Expiration Date V isits Requested Visits Authorized [id number] Denied Specialty Services Required 10/04/2023 04/01/2024 1 0 Additional Source Comments INFORMATION SOURCE (unrecogn ized section and content) DATE CREATED AUTHOR 01/25/2022 [facility] dical Specialist DATE CREATED AUTHOR AUTHOR'S ORGANIZ ATION 10/05/2023 [facility] DATE CREATED AUTHOR AUTHOR'S ORGANIZ ATION 11/24/2023 [facility] DATE CREATED AUTHOR AUTHOR'S ORGANIZ ATION 02/07/2024 [facility] DATE CREATED AUTHOR AUTHOR'S ORGANIZ ATION 03/10/2024 [facility] DATE CREATED AUTHOR AUTHOR'S ORGANIZ ATION 03/22/2024 [facility] DATE CREATED AUTHOR AUTHOR'S ORGANIZ ATION 04/12/2024 [facility] dical Specialists EPIC REASON FOR VISIT (unrecogniz ed section and content) SINUS CONGESTION, COUGHSORE THROAT, HEADACHE, NAUSEA, LOOSE STOOLNo InformationLEFT EAR FEELS FULL, MUFFLED SOUND, TINNITIS Care Teams (unrecognized sec tion and content) Delimber Operator Relationship Specialty Start Date End Date Unallocated, [facility] [address] [place] [address] PCP - General 04/10/23 Delimber Operator Relationship Specialty Start Date End Date Unallocated, [facility] [address] [place] [address] PCP - General 04/10/23 Delimber Operator Relationship Specialty Start Date End Date Unallocated, [facility] [address] [place] [address] PCP - General 04/10/23 FOR RECORDS PERTAINING [...] BE BASED ON THE PRIMARY CLINICAL RECORDS. [facility] [employer] [facility]. provides no warranty or guarantee of the accuracy or completeness of information in this document.
--- NOTE | 2024-04-13 10:40 | US_ITS ---
[facility] [place] [id number] Patient Name: PEDRO BUSTOS MRN: [facility]:[id number] date: 1995 Sex: F Assigned Patient Location: [facility] Current Patient Location: Accession/Order Number: [id number] Exam Date: 04/13/2024 11:00 Report Date: 04/13/2024 13:01 At the request of: CARMEN GIFFORD Procedure: US OB BPP w non-stress ULTRASOUND OB BPP WITH NONSTRESS HISTORY: . ; decreased movement and insulin dependent diabet COMPARISNone.one. FINDIN There is a single intrauterine with heart tones of 158 bpm. The amniotic fluid index is normal at 20.2. The fetus is in the cephalic presentation. Movement 2 Tone 2 Breathing 2 Fluid 2 US/US OB BPP w non-stress IMPRESSION: Single viable intrauterine ; BPP 8/8. Electronically authenticated by: DEBI LARA Date: 04/13/2024 13:01
[2024-04-13 11:13] VITALS: BP 101/64; PULSE 94
[2024-04-13] MEDS: LACTATED RINGER'S SOLUTION 1,000 ML 1000 ML IV ×2 (11:14→12:14)
[2024-04-13 11:15] VITALS: BP 101/64; PULSE 94
--- NOTE | 2024-04-13 11:24 | PC.NURSE ---
IV initiated per Dr order. Placed peripheral 20g IV to Right distal medial site, X1 attempt. Pt tolerated well. No s/s of hematoma, serous drainage, or complications. IVF bolus of LR 1000ml initiated.
[2024-04-13 11:25] LABS: Basophils Absolute Auto 0.1 10^3/uL (0.0-0.1); Basophils Percent Auto 0.5 % (0.2-2.0); Eosinophils Absolute Auto 0.2 10^3/uL (0.0-0.7); Eosinophils Percent Auto 1.3 % (0.9-7.0); Hemoglobin 12.5 g/dL (12.0-16.0); Immature Granulocytes Pct Auto 0.7 % (0.0-0.5); Lymphocytes Absolute Auto 2.5 10^3/uL (1.2-3.8); Lymphocytes Percent Auto 16.9 % (20.5-60.0); Mean Corpuscular HGB Conc 34.7 g/dL (29.9-35.2); Mean Corpuscular Hemoglobin 29.8 pg (26.7-34.0); Mean Corpuscular Volume 85.7 fL (81.0-99.0); Mean Platelet Volume 9.8 fL (9.5-13.5); Monocytes Absolute Auto 0.6 10^3/uL (0.3-0.8); Monocytes Percent Auto 4.3 % (1.7-12.0); Neutrophils Absolute Auto 11.3 10^3/uL (1.4-6.5); Neutrophils Percent Auto 76.3 % (43.0-75.0); Platelet Count 328 10^3/uL (150-450); Red Cell Distribution Width 12.9 % (11.0-15.0); White Blood Count 14.8 10^3/uL (4.0-11.0)
[2024-04-13] MEDS: ACETAMINOPHEN 500 MG TABLET 1000 MG PO (11:35)
[2024-04-13] MEDS: GUAIFENESIN 200 MG/DEXTROMETHORPHAN 20 MG 10 ML UNIT DOSE CUP PO (11:35)
[2024-04-13 12:05] LABS: Alanine Aminotransferase 48 U/L (14-59); Albumin Globulin Ratio 0.4; Albumin Level 2.2 g/dL (3.4-5.0); Alkaline Phosphatase 204 U/L (46-116); Anion Gap 16.5; Aspartate Amino Transferase 38 U/L (15-37); BUN Creatinine Ratio 15.7; Bilirubin Total 0.7 mg/dL (0.2-1.0); Calcium 9.3 mg/dL (8.5-10.1); Carbon Dioxide 22.6 mmol/L (21.0-32.0); Chloride 101 mmol/L (98-107); Estimated GFR (African America >60 (>=60); Estimated GFR (Non-African Ame >60 (>=60); Globulin 5.1 g/dL; Glucose 74 mg/dL (74-106); Potassium 4.1 mmol/L (3.5-5.1); Sodium 136 mmol/L (136-145); Total Protein 7.3 g/dL (6.4-8.2)
--- NOTE | 2024-04-13 12:33 | PM.EN ---
Event Note Event Note: patient assessment negative. Patient states she has a sore throat and cough. LS clear x4 bases, Heart: normal sinus rhythm, Cat 1 EFM, she is showing irregular CTX on the monitor but states she is not feeling them. abdomen palpates soft. Patient is insulin dependent gestational diabetes and she is non compliant. She arrived here at 10:30 am and had not eaten anything today but she did take her insulin. She c/o sinus, cold, cough and congestion. She did state the baby hasn't moved much in the last 3 days. As soon as patient was placed on the EFM monitor here today she states she feels movement. She does have Cat 1 tracing with reactive NST. I did educate patient on compliance with blood sugars, eating regular meals and snacks as directed by MFM and roto rooter operator. PVU Assessment: normal and patient feels comfortable going home. I will send RX with her for Robitussin, Tylenol and Z-pack I will follow up with her in the office on Monday
--- NOTE | 2024-04-13 12:43 | PC.NURSE ---
1240: PATIENT STATES FEELS BETTER SINCE TYLENOL AND ROBITUSSIN. IV BOLUS COMPLETED. CNM ON UNIT AND WRITING DISCHARGE ORDERS AND PRESCRIPTIONS.
== END 2024-04-13 13:02 | disposition home or self-care (01) ==
PROVIDERS: Admitting Provider Midwife; Visit Provider Midwife
DX: O36.8190 Decreased fetal movements, unspecified trimester, not applicable or unspecified (principal); O24.414 Gestational diabetes mellitus in pregnancy, insulin controlled; O26.899 Other specified pregnancy related conditions, unspecified trimester; J02.9 Acute pharyngitis, unspecified; R05.9 Cough, unspecified; Z91.199 Patient's noncompliance with other medical treatment and regimen due to unspecified reason; Z3A.00 Weeks of gestation of pregnancy not specified
CPT/HCPCS: 36415; 76818; 80053; 85025; G0378; G0379

== ENCOUNTER 2024-04-18 09:48 | Outpatient (OUT) | payer OTHER, SELFPAY ==
--- OUTSIDE RECORDS SUMMARY | 2024-04-18 09:51 | XMS_ITS | CCD ---
Author Organization [facility] ion [facility] Care Team Providers Care Hay Stacker Name Role Phone Beena Mosqueda Unavailable Marialuisa Echeverria Unavailable Carlos Perry Unavailable Ovi Walsh Attending Unavailab Ovi Flanagan Admitting Unavailab le NON STAFF Primary Care Unavailable Unallocated, [place] Provider Primary Care Provider GRANT CARMEN Referring Unavailable RUY, CHIVO THOMAS Primary [...] (4 sources) metFORMIN Drug Allergy Rash, Unknown [employer] Other (1 source) metFORMIN Drug Allergy 01-07-20 [facility] Repository (7 sources) metFORMIN; Translations: [METFORMIN HCL] Drug Allergy 09-07-20 Unknown [facility] (7 sources) nickel sulfate; Translations: [NICKEL] Drug Allergy 12-26-19 Rash [facility] (7 sources) Sulfamethoxazole / Trimethoprim; Translations: [SULFAMETHOXAZOLE-T RIMETHOPRIM] Drug Allergy 09-07-20 Dizziness [facility] (2 sources) Latex; Translations: [LATEX] Propensity to [...] Name Value Interpretation Reference Range Facility US BIOPHYSICAL PROFILE WO NON STRESS TESTINGon 04-15-2024 US BIOPHYSICAL PROFILE WO NON STRESS TESTING FINDINGS: Breathing Movements 2 Gross Body Movements 2 Tone 2 Qualitative amniotic fluid volume 2 A single, viable intrauterine is present. The placenta is anterior, Grade 2 not associated with the cervical os. Cephalic presentation. Heart rate 132 bpm. Cervix closed 3.8 cm. BÁRBARA 21.0 c m. IMPRESSION: /8 normal biophysical profile. COMMENT: BÁRBARA is 21.0 cm. TRANSCRIBED BY: ELECTRONICALLY SIGNED BY: Mahamed Caldera MD Normal Not Available US OB FOLLOW UP TRANSABDOMIN AL APPROACHon 04-08-2024 US OB FOLLOW UP TRANSABDOMINAL APPROACH FINDINGS: A [...] OB FOLLOW UP TRANSABDOMIN AL APPROACHon 03-07-2024 US OB FOLLOW UP TRANSABDOMINAL APPROACH FINDINGS: A [...] 01-11-2024 Bilirubin Ql (U) Negative Normal NEG [facility] Comment on above: Performed By: #### U A #### [facility] ([id number]) [address] [place] [address] 82206 BLOOD/HGB Negative Normal NEG [facility] Comment on above: Performed By: #### U A #### [facility] ([id number]) [address] [place] [address] 68031 Color (U) YELLOW Normal YELLOW [facility] Comment on above: Performed By: #### U A #### [facility] ([id number]) [address] [place] [address] 83911 Glucose Ql (U) Negative Normal NEG [facility] Comment on above: Performed By: #### U A #### [facility] ([id number]) [address] [place] [address] 35085 Ketones Ql (U) Trace Abnormal NEG [facility] Comment on above: Performed By: #### U A #### [facility] ([id number]) [address] [place] [address] [place] [address] Leukocyte esterase Test strip Ql (U) SMALL Abnormal NEG [facility] Comment on above: Performed By: #### U A #### [facility] ([id number]) [address] [place] [address] 57709 Nitrite Ql (U) Negative Normal NEG [facility] Comment on above: Performed By: #### U A #### [facility] ([id number]) [address] [place] [address] 25827 pH (U) 6.0 [pH] Normal 5.0-8.5 [facility] Comment on above: Performed By: #### U A #### [facility] ([id number]) [address] [place] [address] 32590 Protein Ql (U) Negative Normal NEG [facility] Comment on above: Performed By: #### U A #### [facility] ([id number]) [address] [place] [address] [place] [address] R.B.CELLS 0 to 1 Normal 0-5 [facility] Comment on above: Performed By: #### U A #### [facility] ([id number]) [address] [place] [address] [place] [address] Specific gravity (U) [Rel density] >1.030 Normal 1.003-1.035 [facility] Comment on above: Performed By: #### U A #### [facility] ([id number]) [address] [place] [address] [place] [address] SQUAMOUS EPITHELIUM 5 /hpf Normal 0-5 [facility] Comment on above: Performed By: #### U A #### [facility] ([id number]) [address] [place] [address] [place] [address] TURBIDITY HAZY Abnormal CLEAR [facility] Comment on above: Performed By: #### U A #### [facility] ([id number]) [address] [place] [address] 59034 Urobilinogen Qn (U) 0.2 {Afsaneh'U}/dL Normal <1.1 [facility] Comment on above: Performed By: #### U A #### [facility] ([id number]) [address] [place] [address] 49712 W.B.CELLS 30 /hpf High 0-5 [facility] Comment on above: Performed By: #### U A #### [facility] ([id number]) [address] [place] [address] 34998 URINE CULTUREon 01-11-2024 Bacteria identified Cx Nom (U) SPECIMEN NOTES URINE RECEIVED WITHOUT PRESERVATIVE CULTURE RESULTS 10-50,000 ORGANISMS/mL NORMAL UROGENITAL MANNY URINE RECEIVED WITHOUT PRESERVATIVE-DELAYS IN TRANSPORT MAY AFFECT RESULTS.INTERPRET WITH CAUTION AND CLINICAL CORRELATION IS RECOMMENDED. Normal [facility] Comment on above: Performed By: #### 6 30-4 #### [facility] ([id number]) [address], [address] [place] [address] CBC AND AUTO DIFFon 12-25-19 24 ABSOLUTE BASOPHIL 0.0 X10E9/L Normal 0.0-0.2 [facility] Comment on above: Performed By: #### C BCA, CMP #### [facility] ([id number]) [address] [place] [address] 46042 ABSOLUTE NEUTROPHIL 8.4 X10E9/L High 1.5-6.6 [facility] Comment on above: Performed By: #### C BCA, CMP #### [facility] ([id number]) [address] [place] [address] 45357 Basophils/100 WBC (Bld) 0.2 % Normal P [facility] Comment on above: Performed By: #### C BCA, CMP #### [facility] ([id number]) [address] [place] [address] 18600 Eosinophils (Bld) [#/Vol] 0.1 10*3/uL Normal 0.0-0.4 [facility] Comment on above: Performed By: #### C GEOVANNA, CMP #### [facility] ([id number]) [address] [place] [address] 05094 Eosinophils/100 WBC (Bld) 1.0 % Normal [facility] Comment on above: Performed By: #### C GEOVANNA, CMP #### [facility] ([id number]) [address] [place] [address] 84292 Erythrocyte distribution width (RBC) [Ratio] 12.9 % Normal 11.5-15.0 [facility] Comment on above: Performed By: #### C GEOVANNA, CMP #### [facility] ([id number]) [address] [place] [address] 80288 Hematocrit (Bld) [Volume fraction] 36.6 % Normal 35-47 [facility] Comment on above: Performed By: #### C GEOVANNA, CMP #### [facility] ([id number]) [address] [place] [address] 45228 Hemoglobin (Bld) [Mass/Vol] 12.7 g/dL Normal 11.7-15.5 [facility] Comment on above: Performed By: #### C GEOVANNA, CMP #### [facility] ([id number]) [address] [place] [address] 13557 Lymphocytes (Bld) [#/Vol] 2.7 10*3/uL Normal 1.0-3.5 [facility] Comment on above: Performed By: #### C GEOVANNA, CMP #### [facility] ([id number]) [address] [place] [address] 06269 Lymphocytes/100 WBC (Bld) 23.0 % Normal [facility] Comment on above: Performed By: #### C GEOVANNA, CMP #### [facility] ([id number]) [address] [place] [address] 54139 MCH (RBC) [Entitic mass] 29.8 pg Normal 27-34 [facility] Comment on above: Performed By: #### C BCA, CMP #### [facility] ([id number]) [address] [place] [address] 51110 MCHC (RBC) [Mass/Vol] 34.8 g/dL Normal 32-36 [facility] Comment on above: Performed By: #### C GEOVANNA, CMP #### [facility] ([id number]) [address] [place] [address] 30642 MCV (RBC) [Entitic vol] 86 fL Normal 80-100 [facility] Comment on above: Performed By: #### C GEOVANNA, CMP #### [facility] ([id number]) [address] [place] [address] 02259 Monocytes (Bld) [#/Vol] 0.6 10*3/uL Normal 0-0.9 [facility] Comment on above: Performed By: #### C GEOVANNA, CMP #### [facility] ([id number]) [address] [place] [address] 79687 Monocytes/100 WBC (Bld) 4.9 % Normal [facility] Comment on above: Performed By: #### C BCA, CMP #### [facility] ([id number]) [address] [place] [address] 18108 Neutrophils/100 WBC (Bld) 70.9 % Normal [facility] Comment on above: Performed By: #### C BCA, CMP #### [facility] ([id number]) [address] [place] [address] 85046 Platelet mean volume (Bld) [Entitic vol] 7.6 fL Normal 7-12 [facility] Comment on above: Performed By: #### C BCA, CMP #### [facility] ([id number]) [address] [place] [address] 52803 Platelets (Bld) [#/Vol] 315 10*3/uL Normal 150-450 [facility] Comment on above: Performed By: #### C BCA, CMP #### [facility] ([id number]) [address] [place] [address] 94987 RBC COUNT 4.27 X10E12/L Normal 3.80-5.20 [facility] Comment on above: Performed By: #### C BCA, CMP #### [facility] ([id number]) [address] [place] [address] 62778 WBC (Bld) [#/Vol] 11.9 10*3/uL High 4.0-11.0 [facility] Comment on above: Performed By: #### C BCA, CMP #### [facility] ([id number]) [address] [place] [address] 51816 COMPREHENSIVE METABOLIC PANE Radames 12-25-2023 Albumin [Mass/Vol] 3.4 g/dL Normal 3.2-5.3 [facility] Comment on above: Performed By: #### C BCA, CMP #### [facility] ([id number]) [address] [place] [address] 42423 ALP [Catalytic activity/Vol] 104 U/L Normal 39-130 [facility] Comment on above: Performed By: #### C BCA, CMP #### [facility] ([id number]) [address] [place] [address] 03445 ALT [Catalytic activity/Vol] 46 U/L High 0-31 [facility] Comment on above: Performed By: #### C BCA, CMP #### [facility] ([id number]) [address] [place] [address] 17095 Anion gap [Moles/Vol] 6 mmol/L Normal 5-15 [facility] Comment on above: Performed By: #### C BCA, CMP #### [facility] ([id number]) [address] [place] [address] 28825 AST [Catalytic activity/Vol] 28 U/L Normal 0-41 [facility] Comment on above: Performed By: #### C BCA, CMP #### [facility] ([id number]) [address] [place] [address] 35005 Bilirubin [Mass/Vol] 0.4 mg/dL Normal 0.3-1.2 [facility] Comment on above: Performed By: #### C BCA, CMP #### [facility] ([id number]) [address] [place] [address] 06267 Calcium [Mass/Vol] 9.3 mg/dL Normal 8.5-10.5 [facility] Comment on above: Performed By: #### C BCA, CMP #### [facility] ([id number]) [address] [place] [address] 16063 Chloride [Moles/Vol] 103 mmol/L Normal 98-109 [facility] Comment on above: Performed By: #### C BCA, CMP #### [facility] ([id number]) [address] [place] [address] 58097 CO2 [Moles/Vol] 23 mmol/L Normal 22-32 [facility] Comment on above: Performed By: #### C BCA, CMP #### [facility] ([id number]) [address] [place] [address] 64829 Creatinine [Mass/Vol] 0.51 mg/dL Normal 0.40-1.00 [facility] Comment on above: Result Comment: METH OD TRACEABLE TO IDMS STANDARD Performed By: #### C BCA, CMP #### [facility] ([id number]) [address] [place] [address] 99084 eGFR (CKD-EPI) NON-RACE DEPENDENT >90 Normal >59 [facility] Comment on above: Result Comment: Reported eGFR is based on the CKD-EPI 2020 equation that does not use a race coefficient. Performed By: #### C BCA, CMP #### [facility] ([id number]) [address] [place] [address] 55932 Glucose [Mass/Vol] 88 mg/dL Normal 65-99 [facility] Comment on above: Performed By: #### C BCA, CMP #### [facility] ([id number]) [address] [place] [address] 78724 Potassium [Moles/Vol] 3.7 mmol/L Normal 3.5-5.0 [facility] Comment on above: Performed By: #### C BCA, CMP #### [facility] ([id number]) [address] [place] [address] 89414 Protein [Mass/Vol] 7.2 g/dL Normal 6.0-8.0 [facility] Comment on above: Performed By: #### C BCA, CMP #### [facility] ([id number]) [address] [place] [address] 02255 Sodium [Moles/Vol] 132 mmol/L Low 134-146 [facility] Comment on above: Performed By: #### C BCA, CMP #### [facility] ([id number]) [address] [place] [address] 90681 Urea nitrogen [Mass/Vol] 10 mg/dL Normal 5-23 [facility] Comment on above: Performed By: #### C BCA, CMP #### [facility] ([id number]) [address] [place] [address] 09031 URN MACROSCOPIC NURon 2023 BILIRUBIN TITO Negative Normal NEG [facility] Comment on above: Performed By: #### N UM #### [facility] ([id number]) [address] [place] [address] 03424 BLOOD/HGB TITO Negative Normal NEG [facility] Comment on above: Performed By: #### N UM #### [facility] ([id number]) [address] [place] [address] 32947 GLUCOSE TITO 100 mg/dL Abnormal NEG [facility] Comment on above: Performed By: #### N UM #### [facility] ([id number]) [address] [place] [address] 04395 KETONES TITO Negative Normal NEG [facility] Comment on above: Performed By: #### N UM #### [facility] ([id number]) [address] [place] [address] 94959 LEUKOCYTE ESTERASE TITO Trace Abnormal NEG [facility] Comment on above: Performed By: #### N UM #### [facility] ([id number]) [address] [place] [address] 32375 NITRITE TITO Negative Normal NEG [facility] Comment on above: Performed By: #### N UM #### [facility] ([id number]) [address] [place] [address] 46369 PH TITO 6.0 Normal 5.0-8.5 [facility] Comment on above: Performed By: #### N UM #### [facility] ([id number]) [address] [place] [address] 09494 PROTEIN TITO Negative Normal NEG [facility] Comment on above: Performed By: #### N UM #### [facility] ([id number]) [address] [place] [address] 45649 SPECIFIC GRAVITY TITO 1.020 Normal 1.003-1.035 [facility] Comment on above: Performed By: #### N UM #### [facility] ([id number]) [address] [facility] [place] [address] UROBILINOGEN TITO 0.2 eu/dL Normal <1.1 [facility] Comment on above: Performed By: #### N UM #### [facility] ([id number]) [address] [facility], [place] [address] US OB 14+ WEEKS ANATOMY SCAN on [...] [facility] Internal identifier for Provider [id number] [facility] Specimen source Nom (Unsp spec) URINE [facility] STATUS FINAL [facility] DRUG TOX MONITORIGN 6 W/ CON F,URINEon 11-03-2023 6-Fviofizjck-9,5-Dimethy l-3,3-Diphenylpyrrolidin e (EDDP) Ql (U) Negative NINF - 100 ng/mL [facility] Amphetamines Ql (U) Negative NINF - 5 00 ng/mL [facility] Barbiturates Ql (U) Negative NINF - 3 00 ng/mL [facility] Benzodiazepines Ql (U) Negative NINF - 100 ng/mL [facility] Benzoylecgonine Ql (U) Negative NINF - 150 ng/mL [facility] Healthcare Opiates Ql (U) Negative NINF - 100 ng/mL [facility] oxyCODONE Ql (U) Negative NINF - 100 ng/mL [facility] Healthcare Phencyclidine Ql (U) Negative NINF - 25 ng/mL [facility] Tetrahydrocannabinol Screen method >20 ng/mL Ql (U) Negative NINF - 20 ng/mL [facility] N. gonorrhoeae DNA ANTONIO+probe Ql (Cervical mucus)on 11-03-2023 C. trachomatis rRNA ANTONIO+probe Ql (Unsp spec) Not detected [facility] DETECTED [facility] N. gonorrhoeae rRNA ANTONIO+probe Ql (Unsp spec) Not detected NOT DETECTED [facility] No Panel Informationon 11-03 (ALWAYS MESSAGE) [facility] Comment on above: See Note 1 Note 1 This drug testing is for medical treatment only. Analysis was performed as non-forensic testing and these results should be used only by healthcare providers to render diagnosis or treatment, or to monitor progress of medical conditions. For assistance with interpreting these drug results, please contact a [employer] Toxicology Specialist: [phone] ( ), M-F, 8am-6pm EST. The analytical perfo rmance characteristics of this assay, when used to test SurePath(TM) specimens have been determined by [employer]. The modifications have not been cleared or approved by the FDA. This assay has been validated pursuant to the CLIA regulations and is used for clinical purposes. For additional information, please refer to https://education.[employer]/faq/HYQ223 (This link is being provided for information/ educational purposes only.) SPLIT 11/01/2023 FROM [id number] [email or web address] Organization Information Site ID: QPT Name: [facility] Address: [address] [place] [address], [address] [place] [phone] Director: Arturo Nobles MD [facility] URINALYSIS MICROSCOPICon Bacteria LM.HPF (Urine sed) [#/Area] NONE SEEN NONE SEEN /HPF [facility] Epithelial cells.squamous LM.HPF (Urine sed) [#/Area] 6-10 Abnormal < OR = 5 /HPF [facility] Hyaline casts (Urine sed) [#/Area] NONE SEEN NONE SEEN /LPF [facility] Interpretation and review of laboratory results Abnormal [facility] RBC LM.HPF (Urine sed) [#/Area] 0-2 < OR = 2 /HPF [facility] WBC LM.HPF (Urine sed) [#/Area] NONE SEEN < OR = 5 /HPF [facility] Urine cultureon 11-03-2023 Bacteria identified Cx Nom (U) SEE NOTE [facility] Comment on above: No Growth ABO/Rhon 11-02-2023 ABO group Nom (Bld) B [facility] Rh Nom (Bld) Positive [facility] Comment on above: For additional information, please refer to http://education.Nidmi/faq/GTI800 (This link is being provided for informational/ educational purposes only.) Antibody screenon 11-02-2023 Blood group antibody screen Ql Detected [facility] Comment on above: Reference range No antibodies detected This assay is a screening test for the detection of red blood cell antibodies. The test is not to be used for pretransfusion screening or for the medical management of an alloimmunized . CBC panel Auto (Bld)on 11-02 Erythrocyte distribution width (RBC) [Ratio] 12.6 % 11.0 - 15.0 % [facility] Hematocrit (Bld) [Volume fraction] 39.5 % 35.0 - 45.0 % [facility] Hemoglobin (Bld) [Mass/Vol] 13.3 g/dL 11.7 - 15.5 g/dL [facility] MCH (RBC) [Entitic mass] 30.1 pg 27. 0 - 33.0 pg [facility] MCHC (RBC) [Mass/Vol] 33.7 g/dL 32.0 - 36.0 g/dL [facility] MCV (RBC) [Entitic vol] 89.4 fL 80.0 - 100.0 fL [facility] Platelet mean volume (Bld) [Entitic vol] 10.1 fL 7.5 - 12.5 fL [facility] Platelets (Bld) [#/Vol] 331 10*3/uL [facility] RBC (Bld) [#/Vol] 4.42 10*6/uL [facility] WBC (Bld) [#/Vol] 12.2 10*3/uL [facility] HIV-1 and HIV-2 antibodieson 11-02-2023 HIV 1+2 Ab+HIV1 p24 Ag IA Ql Non-Reactive NON-REACTIVE [facility] Comment on above: HIV-1 antigen [...] purpose. For additional information please refer to http://[employer]/faq/CUW979 (This link is being provided for informational/ educational purposes only.) The performance of this assay has not been clinically validated in patients less than 2 years old. Hemoglobin A1con 11-02-2023 HbA1c (Bld) [Mass fraction] 5.9 % [facility] Comment on above: For someone without known [...] HBV surface Ag IA Ql Non-Reactive NON-REACTIVE [facility] Comment on above: For additional information, please refer to http://[employer]/faq/WZD720 (This link is being provided for informational/ educational purposes only.) Hepatitis C antibodyon 11-02 HCV Ab IA Ql Non-Reactive NON-REACTIVE [facility] Comment on above: HCV antibody was non-reactive. There is no laboratory evidence of HCV infection. In most cases, no further action is required. However, if recent HCV exposure is suspected, a test for HCV RNA (test code 09873) is suggested. For additional information please refer to http://education.[employer]/faq/DPJ01n1 (This link is being provided for informational/ educational purposes only.) No Panel Informationon 11-02 Interpretation and review of laboratory results Abnormal [facility] PATIENT UNABLE TO VOID; ADVISED TO RETURN FOR COLLECTION. [employer] Information Site ID: QPT Name: [facility] Address: [address] [place] [address], [address] [place] [phone] Director: Arturo Nobles MD [facility] RPRon 11-02-2023 Reagin Ab RPR Ql (S) Non-Reactive NON-REACTIVE [facility] Rubella antibody, IgGon 10-16 Rubella virus IgG Qn (S) 1.06 [IU]/mL Index [facility] Comment on above: Index Interpretation ----- <0.90 Not consistent with immunity 0.90-0.99 Equivocal > or = 1.00 Consistent with immunity The presence of rubella IgG antibody suggests immunization or past or current infection with rubella virus. TSH W/REFLEX TO FT4on 2023 TSH Qn 2.06 m[IU]/L mIU/L [facility] are Comment on above: Reference Range > or = 20 Years 0.40-4.50 Ranges First trimester 0.26-2.66 Second trimester 0.55-2.73 Third trimester 0.43-2.91 URINE CULTUREon 10-14-2023 Bacteria identified Cx Nom (U) CULTURE RESULTS <10,000 ORGANISMS/ML NORMAL URO GENITAL MANNY Normal [facility] Comment on above: Performed By: #### 6 30-4 #### [facility] ([id number]) [address], [address] [place] [address] URN MACROSCOPIC NURon 2022 BILIRUBIN TITO Negative Normal NEG [facility] Comment on above: Performed By: #### N UM #### [facility] ([id number]) [address] [place] [address] [place] [address] BLOOD/HGB TITO Trace Abnormal NEG [facility] Comment on above: Performed By: #### N UM #### [facility] ([id number]) [address] [place] [address] [place] [address] GLUCOSE TITO Negative Normal NEG [facility] Comment on above: Performed By: #### N UM #### [facility] ([id number]) [address] [place] [address] [place] [address] KETONES TITO Trace Abnormal NEG [facility] Comment on above: Performed By: #### N UM #### [facility] ([id number]) [address] [place] [address] [place] [address] LEUKOCYTE ESTERASE TITO Negative Normal NEG [facility] Comment on above: Performed By: #### N UM #### [facility] ([id number]) [address] [place] [address] 78176 NITRITE TITO Negative Normal NEG [facility] Comment on above: Performed By: #### N UM #### [facility] ([id number]) [address] [place] [address] 83311 PH TITO 7.0 Normal 5.0-8.5 [facility] Comment on above: Performed By: #### N UM #### [facility] ([id number]) [address] [place] [address] 14304 PROTEIN TITO Negative Normal NEG [facility] Comment on above: Performed By: #### N UM #### [facility] ([id number]) [address] [place] [address] [place] [address] SPECIFIC GRAVITY TITO 1.025 Normal 1.003-1.035 [facility] Comment on above: Performed By: #### N UM #### [facility] ([id number]) [address] [facility] [place] [address] UROBILINOGEN TITO 0.2 eu/dL Normal <1.1 [facility] Comment on above: Performed By: #### N UM #### [facility] ([id number]) [address] [facility] [place], [place] [address] US OB < 14 WEEKS EARLYon US [...] (COVID-19) RNA ANTONIO+probe Ql (Unsp spec) Negative [employer] Other COVID/FLU/RSV RT-PCR Negative Nort [employer] Other Quick Strepon 01-03-2023 S. pyogenes Org specific cx Ql (Throat) Negative [employer] Other Quick Strep [employer] Other COVID/FLU/RSV RT-PCRon 10-21 SARS-CoV-2 (COVID-19) RNA ANTONIO+probe Ql (Unsp spec) Negative [facility] [employer] Other COVID/FLU/RSV RT-PCR Negative Nort [facility] [employer] Other Q - SURESWAB ADVANCED VAGINI TIS PLUSon 01-21-2022 SENIA GLABRATA Not detected Normal NOT DETECTED Nort [employer] [place] [employer]er Comment on above: Order Comment: [facility] Testing performed at: [employer] [facility], [address] [facility], [address] [place] [address], [phone], Photographer Portrait: Arturo Nobles MD [facility] Collection Date/Time: [facility] Results Received Date/Time: [facility] Reported Date/Time: Result Comment: Senia species C. albicans, C. tropicalis, C. parapsilosis, and/or C. dubliniensis can be detected, but not differentiated, in the Senia spp. result. Performed By: #### 1 0120 #### [facility] Default [address] [place] [address] SENIA SPECIES Not detected Normal NOT DETECTED [facility] Comment on above: Order Comment: [facility] Testing performed at: [employer] [facility], [facility] [address], [address] [place] [address], [phone], Photographer Portrait: Arturo Nobles MD [facility] Collection Date/Time: [facility] Results Received Date/Time: [facility] Reported Date/Time: Performed By: #### 1 0120 #### [facility] Default [address] [place] [address] CHLAMYDIA TRACHOMATIS RNA, TMA, UROGENITAL Not detected Normal NOT DETECTED [facility] Customs Examiner Comment on above: Order Comment: [facility] Testing performed at: [employer] [facility], [address] [facility], [address] [place] [address], [phone], Photographer Portrait: Arturo Nobles MD [facility] Collection Date/Time: [facility] Results Received Date/Time: [facility] Reported Date/Time: Performed By: #### 1 0120 #### [facility] Default [address] [place] [address] NEISSERIA GONORRHOEAE RNA, TMA, UROGENITAL Not detected Normal NOT DETECTED [facility] Specialist Comment on above: Order Comment: [facility] Testing performed at: [employer] [employer] [facility], [address] , [address] [place] [address], [address] [place] [address], Photographer Portrait: Arturo Nobles MD [facility] Collection Date/Time: [facility] Results Received Date/Time: [facility] Reported Date/Time: Result Comment: For additional information, please refer to [email or web address] (This link is being provided for information/ educational purposes only.) Performed By: #### 1 0120 #### [facility] Default [address] [place] [address] SURESWAB(R) ADV BACTERIAL VAGINOSIS (BV), TMA Negative Normal NEGATIVE [facility] Comment on above: Order Comment: [facility] Testing performed at: [employer], [employer] [facility], [address] , [address] [place] [address], [address] [place] [address], Photographer Portrait: Arturo Nobles MD [facility] Collection Date/Time: [facility] Results Received Date/Time: [facility] Reported Date/Time: Performed By: #### 1 0120 #### [facility] Default [address] [place] [address] TRICHOMONAS VAGINALIS (TV), TMA Not detected Normal NOT DETECTED [facility] Comment on above: Order Comment: [facility] Testing performed at: [employer], [employer] [facility], [address] , [address] [place] [address], [address] [place] [address], Photographer Portrait: Arturo Nobles MD [facility] Collection Date/Time: [facility] Results Received Date/Time: [facility] Reported Date/Time: Performed By: #### 1 0120 #### [facility] Default [address] [place] [address] Vital Signs Date Time Vital Sign Value Performing Clinician Facility 11-30-2023 13:31-0500 Body mass index (BMI) [Ratio] 24.61 kg/m2 Carmen Duqueo CNM Work Phone: [facility] 11-30-2023 13:31-0500 Body weight 57.15 kg Carmen Duqueo CNM Work Phone: [facility] 11-30-2023 13:31-0500 Diastolic blood pressure 60 mm[Hg] Carmen Duqueo CNM Work Phone: [facility] 11-30-2023 13:31-0500 Systolic blood pressure 110 mm[Hg] Carmen Duqueo CNM Work Phone: [facility] 10-04-2023 13:46-0500 Body mass index (BMI) [Ratio] 25 kg/m2 Carmen Floro CNM Work Phone: [facility] 10-04-2023 13:46-0500 Body weight 58.06 kg Carmen Duqueo CNM Work Phone: [facility] 01-06-2023 17:30-0400 Body height 152.4 cm Marialuisa Echeverria Other [employer] Other 01-06-2023 17:30-0400 Body mass index (BMI) [Ratio] 23.51 kg/m2 Marialuisa Echeverria Other [employer] Other 01-06-2023 17:30-0400 Body temperature 96.6 [degF] Marialuisa Echeverria Other [employer] Other 01-06-2023 17:30-0400 Body weight 54.61 kg Marialuisa Echeverria Other [employer] Other 01-06-2023 17:30-0400 Diastolic blood pressure 70 mm[Hg] Marialuisa Echeverria Other [employer] Other 01-06-2023 17:30-0400 Respiratory rate 18 /min Marialuisa Echeverria Other [employer] Other 01-06-2023 17:30-0400 SaO2% (BldA) [Mass fraction] 97 % Marialuisa Echeverria Other [employer] Other 01-06-2023 17:30-0400 Systolic blood pressure 103 mm[Hg] Marialuisa Echeverria Other [employer] Other 01-03-2023 10:35-0400 Body height 152.4 cm Marialuisa Echeverria Other [employer] Other 01-03-2023 10:35-0400 Body mass index (BMI) [Ratio] 23.43 kg/m2 Marialuisa Echeverria Other [employer] Other 01-03-2023 10:35-0400 Body temperature 97.8 [degF] Marialuisa Echeverria Other [employer] Other 01-03-2023 10:35-0400 Body weight 54.43 kg Marialuisa Echeverria Other [employer] Other 01-03-2023 10:35-0400 Respiratory rate 18 /min Marialuisa Echeverria Other [employer] Other 01-03-2023 10:35-0400 SaO2% (BldA) [Mass fraction] 97 % Marialuisa Echeverria Other [employer] Other 10-21-2022 15:40-0500 Body height 152.4 cm Beena Mosqueda Other [employer] Other 10-21-2022 15:40-0500 Body mass index (BMI) [Ratio] 19.53 kg/m2 Beena Mosqueda Other [employer] Other 10-21-2022 15:40-0500 Body temperature 98.4 [degF] Beena Mosqueda Other [employer] Other 10-21-2022 15:40-0500 Body weight 45.36 kg Beena Mosqueda Other [employer] Other 10-21-2022 15:40-0500 Respiratory rate 18 /min Beena Mosqueda Other [employer] Other 10-21-2022 15:40-0500 SaO2% (BldA) [Mass fraction] 96 % Beena Mosqueda Other [employer] Other Encounters Encounter Date Encounter Type Care Provider Facility Start: 04-15-2024 ambulatory CARMEN L FLORO Not Rin ilable Start: 04-11-2024 End: 04-11-2024 ambulatory CARMEN L FLORO Not Available Start: 04-11-2024 End: 04-11-2024 ambulatory CHRIS MURPHY [...] Start: 03-20-2024 End: 03-20-2024 ambulatory CHAUNCEY GONZALES [facility] Start: 03-13-2024 End: 03-13-2024 ambulatory MARIBELL CRUZ [facility] Start: 03-13-2024 End: 03-13-2024 ambulatory GRANT FIGUEROA [facility] Start: 03-08-2024 End: 03-08-2024 ambulatory MENDY MANCUSO [facility] Start: 03-07-2024 End: 03-07-2024 ambulatory CARMEN L FLORO Not Available Start: 02-15-2024 End: 02-15-2024 ambulatory CARMEN L FLORO Not Available Start: 02-08-2024 End: 02-08-2024 Emergency department patient visit CHIVO REDMOND [facility] Start: 02-06-2024 End: 02-06-2024 ambulatory [facility] Start: 01-18-2024 End: 01-18-2024 ambulatory CARMEN L FLORO Not Available Start: 01-11-2024 End: 01-11-2024 ambulatory ART UP [facility] Start: 12-25-2023 End: 12-25-2023 Emergency department patient visit CHIVO REDMOND [facility] Start: 12-21-2023 End: 12-21-2023 ambulatory CARMEN L [...] Available Start: 11-01-2023 End: 11-01-2023 ambulatory CARMEN DUQUEO Not Available Start: 10-14-2023 End: 10-14-2023 Emergency department patient visit CHIVO GUZMAN RUY [facility] Start: 10-04-2023 End: 10-04-2023 Initial care visit Carmen Duqueo CNM Work Phone: [facility] Comment on above: [place]: [id number] Start: 10-04-2023 End: 10-04-2023 ambulatory CARMEN DUQUEO Not Available Start: 05-24-2023 ambulatory Ovi Regalado acility:[facility] Start: 01-06-2023 End: 01-06-2023 ambulatory Marialuisa Echeverria Other [employer] Other Start: 01-06-2023 Office outpatient visit 25 minutes Marialuisa Echeverria [facility] Start: 01-03-2023 End: 01-03-2023 ambulatory Marialuisa Echeverria Other [employer] Other Start: 01-03-2023 Office outpatient ne w 30 minutes Marialuisa Echeverria [facility] Start: 01-03-2023 Telephone encounter Carlos Roxane hinton [facility] Start: 10-21-2022 End: 10-21-2022 ambulatory Beena Mosqueda Other [employer] Other Start: 10-21-2022 Office outpatient ne w 20 minutes Beena Mosqueda [facility] Procedures Date Procedure Procedure Detail Performing Clinician Start: 11-01-2023 End: 11-01-2023 Culture bacterial quanttative colony count urine Carmen Akash Duqueo CNM Work Phone: Start: 11-01-2023 DRUG TOX MONITORIGN 6 W/ CONF,URINE Carmen L Sharonao CNM Work Phone: Start: 11-01-2023 URINALYSIS MICROSCOPIC Carmen L Floro CNM Work Phone: Start: 11-01-2023 Antibody screen rbc each serum technique Carmen Burns CN Work Phone: Start: 11-01-2023 Hemoglobin glycosyla bhargav a1c Carmen Burns CN Work Phone: Start: 11-01-2023 TSH W/REFLEX TO FT4 Divina Burns CN Work Phone: H/O: section History of section Carmne Burns CN Work Phone: Plan of Treatment Date Care Activity Detail Author Start: 12-21-2023 End: 12-21-2023 Professional / ancillary services management 12/21/2023 2:30 PM EST Ancillary Procedure [facility] [address] [address] [facility] Start: 12-21-2023 End: 12-21-2023 Patient encounter procedure 12/21/2023 2:00 PM EST Routine [facility] [address] [place] [address] Grant CarmenNELL Spence [address] [place] [address] [facility] Start: 11-30-2023 End: 11-30-2024 US for US OB 14+ weeks anatomy scan Imaging Routine Screening, , for anatomic survey Expected: 11/30/2023, Expires: 11/30/2024 [facility] Work Phone: Comment on above: Expected: 11/30/2023 , Expires: 11/30/2024 Start: 11-30-2023 End: 11-30-2023 Patient encounter procedure [facility] Comment on above: Arrived Payers Date Payer Category Payer Unknown [employer] [id number] 2023-Present [address] [place] [address] [id number] 2023 Self-pay 2022 Unknown [id number] 2022 Medicaid [id number] 2021 Medicare [id number] 2018 Unknown [id number] 2017 Private Health Insurance [id number] 1995 Unknown [id number] 2.16.840.1.778132.3.579.2. 128 1995 Unknown [id number] 2.16.840.1.519612.3.579.2. 128 1995 Unknown [id number] 2.16840.1.198465.3.579.2. 128 1995 Unknown [id number] 2.16840.1.073658.3.579.2. 128 1995 Unknown [id number] 2.16840.1.153440.3.579.2. 1286 1995 Unknown [id number] 2.16.840.1.379914.3.579.2. 1286 1995 Unknown [id number] 2.16.840.1.215478.3.579.2. 1286 1995 Unknown [id number] 2.16.840.1.382719.3.579.2. 1286 1995 Unknown [id number] 2.16.840.1.407158.3.579.2. 1259 1995 Unknown [id number] 2.16.840.1.544213.3.579.2. 1259 1995 Unknown [id number] 2.16.840.1.559757.3.579.2. 9 1995 Unknown [id number] 2.16.840.1.987378.3.579.2. 1259 1995 Unknown [id number] 2.16.840.1.438732.3.579.2. 1258 1995 Unknown [id number] 2.16.840.1.965715.3.579.2. 1258 1995 Unknown [id number] 2.16.840.1.115345.3.579.2. 1258 1995 Unknown [id number] 2.16.840.1.162169.3.579.2. 1258 1995 Unknown [id number] 2.16840.1.654049.3.579.2. 1258 1995 Unknown [id number] 2.16.840.1.676622.3.579.2. 1258 1995 Unknown [id number] 2.16840.1.611213.3.579.2. 1258 1995 Unknown [id number] 2.16840.1.437741.3.579.2. 1258 1995 Unknown [id number] 2.16840.1.375096.3.579.2. 1258 1995 Unknown [id number] 2.16840.1.154554.3.579.2. 1258 1995 Unknown [id number] 2.16840.1.913060.3.579.2. 1258 1995 Unknown [id number] 2.16840.1.254499.3.579.2. 1258 1995 Unknown [id number] 2.840.1.805187.3.579.2. 1258 1995 Unknown [id number] 2.16840.1.904939.3.579.2. 1258 1995 Unknown [id number] 2.16840.1.138630.3.579.2. 1258 Medicaid [id number] 2.16840.1.541186.19 Unknown [id number] Social History Date Type Detail Facility Start: 06-06-2023 Sex Assigned At [facility] [employer] Other Start: 04-07-2023 Tobacco smoking status NHIS Never smoked tobacco [facility] Start: 10-04-2023 Alcohol intake Not Asked [facility] Start: 06-06-2023 History of Social function [facility] Start: 04-07-2023 Alcohol Comment caffeine intak e: 1-2 cups per day. [facility] Start: 08-23-2023 [facility] Start: 1995 Sex Assigned At Not on file [facility] Start: 10-03-2023 Gender identity Identifies as female gender (finding) [facility] Healthcare Goals Date Patient Goal Desired Activity [...] a routine visit. documented in this encounter [facility] Evaluation note 01-06-2023 Note Date & Type [...] understanding and is agreeable to treatment plan. [employer] Other Evaluation note 01-03-2023 Note Date & [...] Z20.828) Dec, Sore throat (ICD-10 - J02.9) [employer] Other Evaluation note 10-21-2022 Note Date & [...] no improvement in 2 to 3 days. [employer] Other Evaluation note Note Date & Type Note Facility Evaluation note No Information [employer] Other Evaluation note Note Date & Type [...] Type Medical History Depression Medical History Anxiety [employer] Other History general Narrative - Reported Note Date & Type Note Facility History general Narrative - Reported Type Medical History bipolar Medical History DM II Surgical History No know Surgical history Hospitalization History 2 child births [employer] Other Summary Purpose Family History No Family [...] examination or test, positive result Amenorrhea Procedures [place] OFFICE/OUTPATIENT NEW HIGH MDM 60-74 MINUTES Carmen Burns CNM [address] [place] [address] Carmen Burns CNM [address] [place] [address] Referral ID Status Reason Start Date Expiration Date V isits Requested Visits Authorized [id number] Denied Specialty Services Required 10/05/2023 04/02/2024 1 0 Referral ID Status Reason Start Date Expiration Date V isits Requested Visits Authorized [id number] Denied Specialty Services Required 10/04/2023 04/01/2024 1 0 Additional Source Comments INFORMATION SOURCE (unrecogn ized section and content) DATE CREATED AUTHOR 01/25/2022 [facility] dical Specialist DATE CREATED AUTHOR AUTHOR'S ORGANIZ ATION 10/05/2023 [facility] DATE CREATED AUTHOR AUTHOR'S ORGANIZ ATION 11/24/2023 [facility] DATE CREATED AUTHOR AUTHOR'S ORGANIZ ATION 02/07/2024 [facility] DATE CREATED AUTHOR AUTHOR'S ORGANIZ ATION 03/10/2024 [facility] DATE CREATED AUTHOR AUTHOR'S ORGANIZ ATION 03/22/2024 [facility] DATE CREATED AUTHOR AUTHOR'S ORGANIZ ATION 04/16/2024 [facility] dical Specialists EPIC REASON FOR VISIT (unrecogniz ed section and content) SINUS CONGESTION, COUGHSORE THROAT, HEADACHE, NAUSEA, LOOSE STOOLNo InformationLEFT EAR FEELS FULL, MUFFLED SOUND, TINNITIS Care Teams (unrecognized sec tion and content) Hay Stacker Relationship Specialty Start Date End Date Unallocated, [facility] [address] [place] [address] PCP - General 04/10/23 Hay Stacker Relationship Specialty Start Date End Date Unallocated, [facility] [address] [place] [address] PCP - General 04/10/23 Hay Stacker Relationship Specialty Start Date End Date Unallocated, [facility] [address] [place] [address] PCP - General 04/10/23 FOR RECORDS PERTAINING [...] BE BASED ON THE PRIMARY CLINICAL RECORDS. [facility] [employer] [facility]. provides no warranty or guarantee of the accuracy or completeness of information in this document.
[2024-04-18 14:04] VITALS: BP 128/84; PULSE 104
== END 2024-04-18 14:52 | disposition home or self-care (01) ==
LOC: FBCO 09:49 → FBC 14:01
PROVIDERS: Visit Provider Obstetrics & Gynecology
DX: O24.419 Gestational diabetes mellitus in pregnancy, unspecified control (principal)
CPT/HCPCS: 59025

== ENCOUNTER 2024-05-01 05:36 | Inpatient (IN) | payer OTHER, SELFPAY ==
[2024-05-01] VITALS (30 sets, daily range): BP systolic 94–133; BP diastolic 54–83; PULSE 66–94; TEMP 36.3–36.8; O2SAT 85–98
--- OUTSIDE RECORDS SUMMARY | 2024-05-01 05:40 | XMS_ITS | CCD ---
Author Organization [facility] ion [facility] Care Team Providers Care Facepiece Line Supervisor Name Role Phone Beena Mosqueda Unavailable Marialuisa [...] Unavailable MENDY MANCUSO Attending Unavailable RUY, CHIVO TOHMAS Referring Unavailable RUY, CHIVO THOMAS Primary Care Unavailable GRANT FIGUEROA Attending Unavailable FLORO, CARMEN Referring Unavailable RUY, CHIVO THOMAS Primary Care Unavailable MARIBELL CRUZ Attending Unavailable FLORO, CARMEN Referring Unavailable RUY, CHIVO THOMAS Primary Care Unavailable CHAUNCEY GONZALES Attending Unavailable FLORO, CARMEN Referring Unavailable RUY, CHIVO THOMAS Primary Care Unavailable ABEBA BARRON Attending Unavailable FLORO, CARMEN Referring Unavailable RUY, CHIVO THOMAS Primary Care Unavailable DIVINA BURNSERIE L Attending Unavailable FLORODIVINACARMEN L Attending Unavailable FLORORAVENE L Attending Unavailable FLORO, CARMEN L Referring Unavailable FLORO, CARMEN L Attending Unavailable FLORO, CARMNE L Attending Unavailable FLORO, CARMEN L Attending Unavailable FLORO, CARMEN L Referring Unavailable FLORO, CARMEN L Attending Unavailable FLORO, CARMEN L Referring Unavailable FLORO, CARMEN L Attending Unavailable FLORO, CARMEN L Referring Unavailable FLORO, CARMEN L Attending Unavailable FLORO, CARMEN L Referring Unavailable MURPHY, CHRIS Attending Unavailable FLORO, CARMEN L Attending Unavailable FLORO, CARMEN L Referring Unavailable FLORO, CARMEN L Referring Unavailable FLORO, CARMEN L Attending Unavailable FLORO, CARMEN L Referring Unavailable FLORO, CARMEN L Attending Unavailable FLORO, CARMEN L Referring Unavailable Allergies Allergy Classification Reported Allergen(s) Allergy Type Date of Onset Reaction(s) Facility (4 sources) metFORMIN Drug Allergy Rash, Unknown [employer] Other (1 source) metFORMIN Drug Allergy 01-07-20 [facility] Repository (7 sources) metFORMIN; Translations: [METFORMIN HCL] Drug Allergy 09-07-20 Unknown [facility] (7 sources) nickel sulfate; Translations: [NICKEL] Drug Allergy 12-26-19 19 Rash [facility] (7 sources) Sulfamethoxazole / Trimethoprim; Translations: [SULFAMETHOXAZOLE-T RIMETHOPRIM] Drug Allergy 09-07-20 Dizziness [facility] (2 sources) Latex; Translations: [LATEX] Propensity [...] 09/19/2022 Active take 1 capsule by mo [facility] every twenty-four hours Sertraline HCl 200 MG [...] Discontinued (Therapy completed) take [facility] tablet [facility]-four hours lamoTRIgine 100 MG 1 [...] US BIOPHYSICAL PROFILE WO NON STRESS TESTINGon 04-22-2024 US BIOPHYSICAL PROFILE WO NON STRESS TESTING FINDINGS: Breathing Movements 2 Gross Body Movements 2 Tone 2 Qualitative amniotic fluid volume 2 A single, viable intrauterine is present. The placenta is anterior Grade2 not associated with the cervical os. Cephalic presentation. Heart rate 132 bpm. Cervix closed 3.8 cm. BÁRBARA 17.0 cm. IMPRESSION: Normal 05/23 biophysical profile. TRANSCRIBED BY: ELECTRONICALLY SIGNED BY: Mahamed Caldera [...] 3.8 cm. BÁRBARA 21.0 c m. IMPRESSION: 05/23 normal biophysical profile. COMMENT: BÁRBARA is 21.0 [...] 01-11-2024 Bilirubin Ql (U) Negative Normal NEG [facility] Comment on above: Performed By: #### U A #### [facility] ([id number]) [address] [place] [address] 91103 BLOOD/HGB Negative Normal NEG [facility] Comment on above: Performed By: #### U A #### [facility] ([id number]) [address] [place] [address] 43264 Color (U) YELLOW Normal YELLOW [facility] Comment on above: Performed By: #### U A #### [facility] ([id number]) [address] [place] [address] 72017 Glucose Ql (U) Negative Normal NEG [facility] Comment on above: Performed By: #### U A #### [facility] ([id number]) [address] [place] [address] [place] [address] Ketones Ql (U) Trace Abnormal NEG [facility] Comment on above: Performed By: #### U A #### [facility] ([id number]) [address] [place] [address] 84978 Leukocyte esterase Test strip Ql (U) SMALL Abnormal NEG [facility] Comment on above: Performed By: #### U A #### [facility] ([id number]) [address] [place] [address] [place] [address] Nitrite Ql (U) Negative Normal NEG [facility] Comment on above: Performed By: #### U A #### [facility] ([id number]) [address] [place] [address] 84019 pH (U) 6.0 [pH] Normal 5.0-8.5 [facility] Comment on above: Performed By: #### U A #### [facility] ([id number]) [address] [place] [address] [place] [address] Protein Ql (U) Negative Normal NEG [facility] Comment on above: Performed By: #### U A #### [facility] ([id number]) [address] [place] [address] [place] [address] R.B.CELLS 0 to 1 Normal 0-5 [facility] Comment on above: Performed By: #### U A #### [facility] ([id number]) [address] [place] [address] [place] [address] Specific gravity (U) [Rel density] >1.030 Normal 1.003-1.035 [facility] Comment on above: Performed By: #### U A #### [facility] ([id number]) [address] [place] [address] 64824 SQUAMOUS EPITHELIUM 5 /hpf Normal 0-5 [facility] Comment on above: Performed By: #### U A #### [facility] ([id number]) [address] [place] [address] 31240 TURBIDITY HAZY Abnormal CLEAR [facility] Comment on above: Performed By: #### U A #### [facility] ([id number]) [address] [place] [address] 27261 Urobilinogen Qn (U) 0.2 {Afsaneh'U}/dL Normal <1.1 [facility] Comment on above: Performed By: #### U A #### [facility] ([id number]) [address] [place] [address] 66157 W.B.CELLS 30 /hpf High 0-5 [facility] Comment on above: Performed By: #### U A #### [facility] ([id number]) [address] [place] [address] 51193 URINE CULTUREon 01-11-2024 Bacteria identified Cx Nom (U) SPECIMEN NOTES URINE RECEIVED WITHOUT PRESERVATIVE CULTURE RESULTS 10-50,000 ORGANISMS/mL NORMAL UROGENITAL MANNY URINE RECEIVED WITHOUT PRESERVATIVE-DELAYS IN TRANSPORT MAY AFFECT RESULTS.INTERPRET WITH CAUTION AND CLINICAL CORRELATION IS RECOMMENDED. Normal [facility] Comment on above: Performed By: #### 6 30-4 #### [facility] ([id number]) [address], [address] [place] [address] CBC AND AUTO DIFFon 12-25-19 24 ABSOLUTE BASOPHIL 0.0 X10E9/L Normal 0.0-0.2 [facility] Comment on above: Performed By: #### C BCA, CMP #### [facility] ([id number]) [address] [place] [address] 31112 ABSOLUTE NEUTROPHIL 8.4 X10E9/L High 1.5-6.6 [facility] Comment on above: Performed By: #### C BCA, CMP #### [facility] ([id number]) [address] [place] [address] 17238 Basophils/100 WBC (Bld) 0.2 % Normal [facility] Comment on above: Performed By: #### C GEOVANNA, CMP #### [facility] ([id number]) [address] [place] [address] 61451 Eosinophils (Bld) [#/Vol] 0.1 10*3/uL Normal 0.0-0.4 [facility] Comment on above: Performed By: #### C GEOVANNA, CMP #### [facility] ([id number]) [address] [place] [address] 81369 Eosinophils/100 WBC (Bld) 1.0 % Normal [facility] Comment on above: Performed By: #### C GEOVANNA, CMP #### [facility] ([id number]) [address] [place] [address] 07088 Erythrocyte distribution width (RBC) [Ratio] 12.9 % Normal 11.5-15.0 [facility] Comment on above: Performed By: #### C BCA, CMP #### [facility] ([id number]) [address] [place] [address] 96026 Hematocrit (Bld) [Volume fraction] 36.6 % Normal 35-47 [facility] Comment on above: Performed By: #### C BCA, CMP #### [facility] ([id number]) [address] [place] [address] 41972 Hemoglobin (Bld) [Mass/Vol] 12.7 g/dL Normal 11.7-15.5 [facility] Comment on above: Performed By: #### C BCA, CMP #### [facility] ([id number]) [address] [place] [address] 89760 Lymphocytes (Bld) [#/Vol] 2.7 10*3/uL Normal 1.0-3.5 [facility] Comment on above: Performed By: #### C BCA, CMP #### [facility] ([id number]) [address] [place] [address] 43075 Lymphocytes/100 WBC (Bld) 23.0 % Normal [facility] Comment on above: Performed By: #### C BCA, CMP #### [facility] ([id number]) [address] [place] [address] 23246 MCH (RBC) [Entitic mass] 29.8 pg Normal 27-34 [facility] Comment on above: Performed By: #### C BCA, CMP #### [facility] ([id number]) [address] [place] [address] 42967 MCHC (RBC) [Mass/Vol] 34.8 g/dL Normal 32-36 [facility] Comment on above: Performed By: #### C BCA, CMP #### [facility] ([id number]) [address] [place] [address] 16667 MCV (RBC) [Entitic vol] 86 fL Normal 80-100 [facility] Comment on above: Performed By: #### C BCA, CMP #### [facility] ([id number]) [address] [place] [address] 83249 Monocytes (Bld) [#/Vol] 0.6 10*3/uL Normal 0-0.9 [facility] Comment on above: Performed By: #### C BCA, CMP #### [facility] ([id number]) [address] [place] [address] 25345 Monocytes/100 WBC (Bld) 4.9 % Normal [facility] Comment on above: Performed By: #### C GEOVANNA, CMP #### [facility] ([id number]) [address] [place] [address] 28604 Neutrophils/100 WBC (Bld) 70.9 % Normal [facility] Comment on above: Performed By: #### C GEOVANNA, CMP #### [facility] ([id number]) [address] [place] [address] 02641 Platelet mean volume (Bld) [Entitic vol] 7.6 fL Normal 7-12 [facility] Comment on above: Performed By: #### C GEOVANNA, CMP #### [facility] ([id number]) [address] [place] [address] 07976 Platelets (Bld) [#/Vol] 315 10*3/uL Normal 150-450 [facility] Comment on above: Performed By: #### C GEOVANNA, CMP #### [facility] ([id number]) [address] [place] [address] 61925 RBC COUNT 4.27 X10E12/L Normal 3.80-5.20 [facility] Comment on above: Performed By: #### C GEOVANNA, CMP #### [facility] ([id number]) [address] [place] [address] 67708 WBC (Bld) [#/Vol] 11.9 10*3/uL High 4.0-11.0 [facility] Comment on above: Performed By: #### C GEOVANNA, CMP #### [facility] ([id number]) [address] [place] [address] 66784 COMPREHENSIVE METABOLIC PANE Radames 12-25-2023 Albumin [Mass/Vol] 3.4 g/dL Normal 3.2-5.3 [facility] Comment on above: Performed By: #### C GEOVANNA, CMP #### [facility] ([id number]) [address] [place] [address] 36839 ALP [Catalytic activity/Vol] 104 U/L Normal 39-130 [facility] Comment on above: Performed By: #### C BCA, CMP #### [facility] ([id number]) [address] [place] [address] 72494 ALT [Catalytic activity/Vol] 46 U/L High 0-31 [facility] Comment on above: Performed By: #### C BCA, CMP #### [facility] ([id number]) [address] [place] [address] 72954 Anion gap [Moles/Vol] 6 mmol/L Normal 5-15 [facility] Comment on above: Performed By: #### C BCA, CMP #### [facility] ([id number]) [address] [place] [address] 78414 AST [Catalytic activity/Vol] 28 U/L Normal 0-41 [facility] Comment on above: Performed By: #### C BCA, CMP #### [facility] ([id number]) [address] [place] [address] 40746 Bilirubin [Mass/Vol] 0.4 mg/dL Normal 0.3-1.2 [facility] Comment on above: Performed By: #### C BCA, CMP #### [facility] ([id number]) [address] [place] [address] 96315 Calcium [Mass/Vol] 9.3 mg/dL Normal 8.5-10.5 [facility] Comment on above: Performed By: #### C BCA, CMP #### [facility] ([id number]) [address] [place] [address] 11942 Chloride [Moles/Vol] 103 mmol/L Normal 98-109 [facility] Comment on above: Performed By: #### C BCA, CMP #### [facility] ([id number]) [address] [place] [address] 97206 CO2 [Moles/Vol] 23 mmol/L Normal 22-32 [facility] Comment on above: Performed By: #### C BCA, CMP #### [facility] ([id number]) [address] [place] [address] 48764 Creatinine [Mass/Vol] 0.51 mg/dL Normal 0.40-1.00 [facility] Comment on above: Result Comment: METH OD TRACEABLE TO IDMS STANDARD Performed By: #### C BCA, CMP #### [facility] ([id number]) [address] [place] [address] 20363 eGFR (CKD-EPI) NON-RACE DEPENDENT >90 Normal >59 [facility] Comment on above: Result Comment: Reported eGFR is based on the CKD-EPI 2020 equation that does not use a race coefficient. Performed By: #### C BCA, CMP #### [facility] ([id number]) [address] [place] [address] 16789 Glucose [Mass/Vol] 88 mg/dL Normal 65-99 [facility] Comment on above: Performed By: #### C BCA, CMP #### [facility] ([id number]) [address] [place] [address] 08897 Potassium [Moles/Vol] 3.7 mmol/L Normal 3.5-5.0 [facility] Comment on above: Performed By: #### C BCA, CMP #### [facility] ([id number]) [address] [place] [address] 52493 Protein [Mass/Vol] 7.2 g/dL Normal 6.0-8.0 [facility] Comment on above: Performed By: #### C BCA, CMP #### [facility] ([id number]) [address] [place] [address] Sodium [Moles/Vol] 132 mmol/L Low 134-146 [facility] Comment on above: Performed By: #### C BCA, CMP #### [facility] ([id number]) [address] [place] [address] 14319 Urea nitrogen [Mass/Vol] 10 mg/dL Normal 5-23 [facility] Comment on above: Performed By: #### C BCA, CMP #### [facility] ([id number]) [address] [place] [address] 61561 URN MACROSCOPIC NURon 2023 BILIRUBIN TITO Negative Normal NEG [facility] Comment on above: Performed By: #### N UM #### [facility] ([id number]) [address] [place] [address] 45642 BLOOD/HGB ITTO Negative Normal NEG [facility] Comment on above: Performed By: #### N UM #### [facility] ([id number]) [address] [place] [address] 20362 GLUCOSE TITO 100 mg/dL Abnormal NEG [facility] Comment on above: Performed By: #### N UM #### [facility] ([id number]) [address] [place] [address] [place] [address] KETONES TITO Negative Normal NEG [facility] Comment on above: Performed By: #### N UM #### [facility] ([id number]) [address] [place] [address] [place] [address] LEUKOCYTE ESTERASE TITO Trace Abnormal NEG [facility] Comment on above: Performed By: #### N UM #### [facility] ([id number]) [address] [place] [address] 63910 NITRITE TITO Negative Normal NEG [facility] Comment on above: Performed By: #### N UM #### [facility] ([id number]) [address] [place] [address] PH TITO 6.0 Normal 5.0-8.5 [facility] Comment on above: Performed By: #### N UM #### [facility] ([id number]) [address] [place] [address] PROTEIN TITO Negative Normal NEG [facility] Comment on above: Performed By: #### N UM #### [facility] ([id number]) [address] [place] [address] 83507 SPECIFIC GRAVITY TITO 1.020 Normal 1.003-1.035 [facility] Comment on above: Performed By: #### N UM #### [facility] ([id number]) [address] [place] [address] 39836 UROBILINOGEN TITO 0.2 eu/dL Normal <1.1 [facility] Comment on above: Performed By: #### N UM #### [facility] ([id number]) [address] [place] [address] 97538 US OB 14+ WEEKS ANATOMY SCAN on [...] [facility] Internal identifier for Provider [id number] [facility] Specimen source Nom (Unsp spec) URINE [facility] STATUS FINAL [facility] DRUG TOX MONITORIGN 6 W/ CON F,URINEon 11-03-2023 7-Qzmfguojcy-0,5-Dimethy l-3,3-Diphenylpyrrolidin e (EDDP) Ql (U) Negative NINF [...] Ql (U) Negative NINF - 25 ng/mL [facility] Tetrahydrocannabinol Screen method >20 ng/mL Ql (U) Negative NINF - 20 ng/mL [facility] N. gonorrhoeae DNA ANTONIO+probe Ql (Cervical mucus)on 11-03-2023 C. trachomatis rRNA ANTONIO+probe Ql (Unsp spec) Not detected NOT DETECTED [facility] N. gonorrhoeae rRNA ANTONIO+probe Ql (Unsp spec) Not detected NOT DETECTED [facility] No Panel Informationon 11-03 (ALWAYS MESSAGE) [facility] Comment on above: See Note 1 Note 1 This drug testing is for medical treatment only. Analysis was performed as non-forensic testing and these results should be used only by healthcare providers to render diagnosis or treatment, or to monitor progress of medical conditions. For assistance with interpreting these drug results, please contact a [facility] Toxicology Specialist: [phone] ( ), M-F, 8am-6pm EST. The analytical perfo rmance characteristics of this assay, when used to test [employer]() specimens have been determined by [facility]. The modifications have not been cleared or approved by the FDA. This assay has been validated pursuant to the CLIA regulations and is used for clinical purposes. For additional information, please refer to https://[employer]/faq/UBK252 (This link is being provided for information/ educational purposes only.) SPLIT 11/01/2023 FROM [id number] [employer] Organization Information Site ID: QPT Name: [facility] Address: [address] [place] [address], [address] [place] [phone] Director: Arturo Nobles MD [facility] URINALYSIS MICROSCOPICon Bacteria LM.HPF (Urine sed) [#/Area] NONE SEEN NONE SEEN /HPF [facility] Epithelial cells.squamous LM.HPF (Urine sed) [#/Area] 6-10 Abnormal < OR = 5 /HPF [facility] Hyaline casts (Urine sed) [#/Area] NONE SEEN NONE SEEN /LPF [facility] Interpretation and review of laboratory results Abnormal [facility] RBC LM.HPF (Urine sed) [#/Area] 0-2 < OR = 2 /HPF [facility] WBC LM.HPF (Urine sed) [#/Area] NONE SEEN < OR = 5 /HPF [facility] Urine cultureon 11-03-2023 Bacteria identified Cx Nom (U) SEE NOTE [facility] Comment on above: No Growth ABO/Rhon 11-02-2023 ABO group Nom (Bld) B [facility] Rh Nom (Bld) [facility] Comment on above: For additional information, please refer to http://[employer]/faq/DDH290 (This link is being provided for informational/ educational purposes only.) Antibody screenon 11-02-2023 Blood group antibody screen Ql Detected [facility] Comment on above: Reference range No antibodies detected This assay is a screening test for the detection of red blood cell antibodies. The test is not to be used for pretransfusion screening or for the medical management of an alloimmunized . CBC panel Auto (Bld)on 11-02 Erythrocyte distribution width (RBC) [Ratio] 12.6 % 11.0 - 15.0 % [facility] Hematocrit (Bld) [Volume fraction] 39.5 % 35.0 - 45.0 % [facility] Hemoglobin (Bld) [Mass/Vol] 13.3 g/dL 11.7 - 15.5 g/dL [facility] MCH (RBC) [Entitic mass] 30.1 pg 27. 0 - 33.0 pg [facility] MCHC (RBC) [Mass/Vol] 33.7 g/dL 32.0 - 36.0 g/dL [facility] MCV (RBC) [Entitic vol] 89.4 fL 80.0 - 100.0 fL [facility] Platelet mean volume (Bld) [Entitic vol] 10.1 fL 7.5 - 12.5 fL [facility] Platelets (Bld) [#/Vol] 331 10*3/uL [facility] RBC (Bld) [#/Vol] 4.42 10*6/uL [facility] WBC (Bld) [#/Vol] 12.2 10*3/uL [facility] HIV-1 and HIV-2 antibodieson 11-02-2023 HIV 1+2 Ab+HIV1 p24 Ag IA Ql Non-Reactive NON-REACTIVE [facility] Comment on above: HIV-1 antigen and [...] purpose. For additional information please refer to http://education.[employer]/faq/MLU265 (This link is being provided for informational/ educational purposes only.) The performance of this assay has not been clinically validated in patients less than 2 years old. Hemoglobin A1con 11-02-2023 HbA1c (Bld) [Mass fraction] 5.9 % [facility] Comment on above: For someone [...] HBV surface Ag IA Ql Non-Reactive NON-REACTIVE [facility] Comment on above: For additional information, please refer to http://education.[employer]/faq/EAP826 (This link is being provided for informational/ educational purposes only.) Hepatitis C antibodyon 11-02 HCV Ab IA Ql Non-Reactive NON-REACTIVE [facility] Comment on above: HCV antibody was non-reactive. There is no laboratory evidence of HCV infection. In most cases, no further action is required. However, if recent HCV exposure is suspected, a test for HCV RNA (test code 57053) is suggested. For additional information please refer to http://[employer]/faq/ABF07f4 (This link is being provided for informational/ educational purposes only.) No Panel Informationon 11-02 Interpretation and review of laboratory results Abnormal [facility] PATIENT UNABLE TO VOID; ADVISED TO RETURN FOR COLLECTION. [employer] Organization Information Site ID: QPT Name: [facility] Address: [address] [place] [address], [address] [place] [phone] Director: Arturo Nobles MD [facility] RPRon 11-02-2023 Reagin Ab RPR Ql (S) Non-Reactive NON-REACTIVE [facility] Rubella antibody, IgGon 10-16 Rubella virus IgG Qn (S) 1.06 [IU]/mL Index [facility] Comment on above: Index Interpretation ----- <0.90 Not consistent with immunity 0.90-0.99 Equivocal > or = 1.00 Consistent with immunity The presence of rubella IgG antibody suggests immunization or past or current infection with rubella virus. TSH W/REFLEX TO FT4on 2023 TSH Qn 2.06 m[IU]/L mIU/L [facility] are Comment on above: Reference Range > or = 20 Years 0.40-4.50 Ranges First trimester 0.26-2.66 Second trimester 0.55-2.73 Third trimester 0.43-2.91 URINE CULTUREon 10-14-2023 Bacteria identified Cx Nom (U) CULTURE RESULTS <10,000 ORGANISMS/ML NORMAL URO GENITAL MANNY Normal [facility] Comment on above: Performed By: #### 6 30-4 #### [facility] ([id number]) [address] [place] [address], [address] [place] [address] URN MACROSCOPIC NURon 2022 BILIRUBIN TITO Negative Normal NEG [facility] Comment on above: Performed By: #### N UM #### [facility] ([id number]) [address] [place] [address] 34541 BLOOD/HGB TITO Trace Abnormal NEG [facility] Comment on above: Performed By: #### N UM #### [facility] ([id number]) [address] [place] [address] 44442 GLUCOSE TITO Negative Normal NEG [facility] Comment on above: Performed By: #### N UM #### [facility] ([id number]) [address] [place] [address] 85118 KETONES TITO Trace Abnormal NEG [facility] Comment on above: Performed By: #### N UM #### [facility] ([id number]) [address] [place] [address] 89725 LEUKOCYTE ESTERASE TITO Negative Normal NEG [facility] Comment on above: Performed By: #### N UM #### [facility] ([id number]) [address] [place] [address] 13935 NITRITE TITO Negative Normal NEG [facility] Comment on above: Performed By: #### N UM #### [facility] ([id number]) [address] [place] [address] [place] [address] PH TITO 7.0 Normal 5.0-8.5 [facility] Comment on above: Performed By: #### N UM #### [facility] ([id number]) [address] [place] [address] PROTEIN TITO Negative Normal NEG [facility] Comment on above: Performed By: #### N UM #### [facility] ([id number]) [address] [place] [address] SPECIFIC GRAVITY TITO 1.025 Normal 1.003-1.035 [facility] Comment on above: Performed By: #### N UM #### [facility] ([id number]) [address] [place] [id number] UROBILINOGEN TITO 0.2 eu/dL Normal <1.1 [facility] Comment on above: Performed By: #### N UM #### [facility] ([id number]) [address] [place] [id number] US OB < 14 WEEKS EARLYon US [...] (COVID-19) RNA ANTONIO+probe Ql (Unsp spec) Negative [facility] Other COVID/FLU/RSV RT-PCR Negative [facility] Other Quick Strepon 01-03-2023 S. pyogenes Org specific cx Ql (Throat) Negative [facility] Other Quick Strep [facility] Other COVID/FLU/RSV RT-PCRon 10-21 SARS-CoV-2 (COVID-19) RNA ANTONIO+probe Ql (Unsp spec) Negative [facility] Other COVID/FLU/RSV RT-PCR Negative [facility] Other Q - SURESWAB ADVANCED VAGINI TIS PLUSon 01-21-2022 SENIA GLABRATA Not detected Normal NOT DETECTED [facility] Comment on above: Order Comment: [facility] Testing performed at: [facility] [employer] [facility], [address] [place] [address], [address] [place] [address], [phone], Assistant Store Manager Operations: Arturo Nobles MD [facility] Collection Date/Time: [facility] Results Received Date/Time: [facility] Reported Date/Time: Result Comment: Senia species C. albicans, C. tropicalis, C. parapsilosis, and/or C. dubliniensis can be detected, but not differentiated, in the Senia spp. result. Performed By: #### 1 0120 #### [facility] Default [address] [place] [address] SENIA SPECIES Not detected Normal NOT DETECTED [facility] Comment on above: Order Comment: [facility] Testing performed at: [facility] [employer] [facility], [address] , [address] [place] [address], [phone], Assistant Store Manager Operations: Arturo Nobles MD [facility] Collection Date/Time: [facility] Results Received Date/Time: [facility] Reported Date/Time: Performed By: #### 1 0120 #### [facility] Default [address] [place] [address] CHLAMYDIA TRACHOMATIS RNA, TMA, UROGENITAL Not detected Normal NOT DETECTED [facility] Comment on above: Order Comment: [facility] Testing performed at: [employer] [facility], [address] [place] [address], [address] [place] [address], [address] [place] [address], Assistant Store Manager Operations: Arturo Nobles MD [facility] Collection Date/Time: [facility] Results Received Date/Time: [facility] Reported Date/Time: Performed By: #### 1 0120 #### [facility] Default [address] [place] [address] NEISSERIA GONORRHOEAE RNA, TMA, UROGENITAL Not detected Normal NOT DETECTED [facility] Comment on above: Order Comment: [facility] Testing performed at: [employer] [facility], [address] [place] [address], [address] [place] [address], [address] [place] [address], Assistant Store Manager Operations: Arturo Nobles MD [facility] Collection Date/Time: [facility] Results Received Date/Time: [facility] Reported Date/Time: Result Comment: For additional information, please refer to [email or web address] (This link is being provided for information/ educational purposes only.) Performed By: #### 1 0120 #### [facility] Default [address] [place] [address] SURESWAB(R) ADV BACTERIAL VAGINOSIS (BV), TMA Negative Normal NEGATIVE [facility] Comment on above: Order Comment: [facility] Testing performed at: [employer] [facility], [address] [place] [address], [address] [place] [address], [address] [place] [address], Assistant Store Manager Operations: Arturo Nobles MD [facility] Collection Date/Time: [facility] Results Received Date/Time: [facility] Reported Date/Time: Performed By: #### 1 0120 #### [facility] Default [address] [place] [address] TRICHOMONAS VAGINALIS (TV), TMA Not detected Normal NOT DETECTED [facility] Comment on above: Order Comment: [facility] Testing performed at: Q, [employer] [facility], [address], [address] [facility], [place], [phone], Assistant Store Manager Operations: Arturo Nobles MD [facility] Collection Date/Time: [facility] Results Received Date/Time: [facility] Reported Date/Time: Performed By: #### 1 0120 #### [facility] Default [address] [place] [address] Vital Signs Date Time Vital Sign Value Performing Clinician Facility 11-30-2023 13:31-0500 Body mass index (BMI) [Ratio] 24.61 kg/m2 Carmen Satoriso CN Work Phone: [facility] 11-30-2023 13:31-0500 Body weight 57.15 kg Carmenjase Taboro CN Work Phone: [facility] 11-30-2023 13:31-0500 Diastolic blood pressure 60 mm[Hg] Carmen Satoriso CN Work Phone: [facility] 11-30-2023 13:31-0500 Systolic blood pressure 110 mm[Hg] Carmen Satoriso CN Work Phone: [facility] 10-04-2023 13:46-0500 Body mass index (BMI) [Ratio] 25 kg/m2 Carmen Satoriso CN Work Phone: [facility] 10-04-2023 13:46-0500 Body weight 58.06 kg Carmen Satoriso CN Work Phone: [facility] 01-06-2023 17:30-0400 Body height 152.4 cm Marialuisa Echeverria Other [facility] [facility] Other 01-06-2023 17:30-0400 Body mass index (BMI) [Ratio] 23.51 kg/m2 Marialuisa Fischerler Other [facility] Other 01-06-2023 17:30-0400 Body temperature 96.6 [degF] Marialuisa Echeverria Other [facility] Other 01-06-2023 17:30-0400 Body weight 54.61 kg Marialuisa Echeverria Other [facility] [facility] Other 01-06-2023 17:30-0400 Diastolic blood pressure 70 mm[Hg] Marialuisa Echeverria Other [facility] [facility] Other 01-06-2023 17:30-0400 Respiratory rate 18 /min Marialuisa Echeverria Other [facility] [facility] Other 01-06-2023 17:30-0400 SaO2% (BldA) [Mass fraction] 97 % Marialuisa Echeverria Other [facility] Other 01-06-2023 17:30-0400 Systolic blood pressure 103 mm[Hg] Marialuisa Echeverria Other [facility] [facility] Other 01-03-2023 10:35-0400 Body height 152.4 cm Marialuisa Echeverria Other [facility] [facility] Other 01-03-2023 10:35-0400 Body mass index (BMI) [Ratio] 23.43 kg/m2 Marialuisa Echeverria Other [facility] Other 01-03-2023 10:35-0400 Body temperature 97.8 [degF] Marialuisa Echeverria Other [facility] Other 01-03-2023 10:35-0400 Body weight 54.43 kg Marialuisa Echeverria Other [facility] Other 01-03-2023 10:35-0400 Respiratory rate 18 /min Marialuisa Echeverria Other [facility] Other 01-03-2023 10:35-0400 SaO2% (BldA) [Mass fraction] 97 % Marialuisa Echeverria Other [facility] Other 10-21-2022 15:40-0500 Body height 152.4 cm Beena Mosqueda Other [facility] Other 10-21-2022 15:40-0500 Body mass index (BMI) [Ratio] 19.53 kg/m2 Beena Cariasmond Other [facility] Other 10-21-2022 15:40-0500 Body temperature 98.4 [degF] Beena Mosqueda Other [facility] Other 10-21-2022 15:40-0500 Body weight 45.36 kg Beena Mosqueda Other [facility] Other 10-21-2022 15:40-0500 Respiratory rate 18 /min Beena Cariasmond Other [facility] [facility] Other 10-21-2022 15:40-0500 SaO2% (BldA) [Mass fraction] 96 % Beena Jaylin Other [facility] Other Encounters Encounter Date Encounter Type Care Provider Facility Start: 04-29-2024 ambulatory CARMEN L FLORO Not Rin ilable Start: 04-25-2024 End: 04-25-2024 ambulatory CARMEN L FLORO Not Available Start: 04-22-2024 End: 04-22-2024 ambulatory CARMEN L FLORO Not Available Start: 04-17-2024 End: 04-17-2024 ambulatory ABEBA BARRON [facility] Start: 04-15-2024 End: 04-15-2024 ambulatory CARMEN L FLORO Not Available Start: 04-11-2024 End: 04-11-2024 ambulatory CARMEN L FLORO Not Available Start: 04-11-2024 End: 04-11-2024 ambulatory CHRIS ARRINGTON Not Available Start: 04-08-2024 End: 04-08-2024 ambulatory [...] Available Start: 03-20-2024 End: 03-20-2024 ambulatory CHAUNCEY JANET [facility] Start: 03-13-2024 End: 03-13-2024 ambulatory MARIBELL REDDY [facility] Start: 03-13-2024 End: 03-13-2024 ambulatory GRANT FIGUEROA [facility] Start: 03-08-2024 End: 03-08-2024 ambulatory MENDY Maeve MANCUSO [facility] Start: 03-07-2024 End: 03-07-2024 ambulatory CARMEN L FLORO Not Available Start: 02-15-2024 End: 02-15-2024 ambulatory CARMEN L FLORO Not Available Start: 02-08-2024 End: 02-08-2024 Emergency department patient visit CHIVO REDMOND [facility] Start: 02-06-2024 End: 02-06-2024 ambulatory CECIL [facility] Start: 01-18-2024 End: 01-18-2024 ambulatory CARMEN L FLORO Not Available Start: 01-11-2024 End: 01-11-2024 ambulatory ART UP [facility] Start: 12-25-2023 End: 12-25-2023 Emergency department patient visit CHIVO REDMOND [facility] Start: 12-21-2023 End: 12-21-2023 ambulatory CARMEN L [...] 10-14-2023 Emergency department patient visit CHIVO REDMOND [facility] Start: 10-04-2023 End: 10-04-2023 Initial care visit Carmen Taboro CNM Work Phone: [facility] Comment on above: GA: 8w0d Start: 10-04-2023 End: 10-04-2023 ambulatory CARMEN L FLORO Not Available Start: 05-24-2023 ambulatory Ovi Regalado acility:[facility] Start: 01-06-2023 End: 01-06-2023 ambulatory Marialuisa Echeverria Other [facility] Other Start: 01-06-2023 Office outpatient visit 25 minutes Marialuisa Echeverria [facility] Start: 01-03-2023 End: 01-03-2023 ambulatory Marialuisa Echeverria Other [facility] Other Start: 01-03-2023 Office outpatient ne w 30 minutes Marialuisa Echeverria [facility] Start: 01-03-2023 Telephone encounter Carlos Betts i [facility] Start: 10-21-2022 End: 10-21-2022 ambulatory Beena Mosqueda Other [facility] Other Start: 10-21-2022 Office outpatient ne w 20 minutes Beenacyndee Mosqueda [facility] Procedures Date [...] Work Phone: H/O: section History of section Cramen L Floro CNM Work Phone: Plan of Treatment Date Care Activity Detail Author Start: 12-21-2023 End: 12-21-2023 Professional / ancillary services management 12/21/2023 2:30 PM EST Ancillary Procedure [facility] [address] [place] [address] [facility] Start: 12-21-2023 End: 12-21-2023 Patient encounter procedure 12/21/2023 2:00 PM EST Routine [facility] [address] [place] [address] Carmen Burns CNM [address] [place] [address] [facility] Start: 11-30-2023 End: 11-30-2024 US for US OB 14+ weeks anatomy scan Imaging Routine Screening, , for anatomic survey Expected: 11/30/2023, Expires: 11/30/2024 [facility] Work Phone: Comment on above: Expected: 11/30/2023 , Expires: 11/30/2024 Start: 11-30-2023 End: 11-30-2023 Patient encounter procedure [facility] Comment on above: Arrived Payers Date Payer Category Payer Unknown [employer] [id number] 2023-Present [address] [place] [address] [id number] 2023 Self-pay 2022 Unknown [id number] 2022 Medicaid [id number] 2021 Medicare [id number] 2018 Unknown [id number] 2017 Private Health Insurance [id number] 1995 Unknown [id number] 2.16.840.1.443903.3.579.2. 1286 1995 Unknown [id number] 2.16.840.1.542133.3.579.2. 1286 1995 Unknown [id number] 2.16.840.1.217636.3.579.2. 1286 1995 Unknown [id number] 2.16.840.1.167563.3.579.2. 1285 1995 Unknown [id number] 2.16.840.1.093290.3.579.2. 1286 1995 Unknown [id number] 2.16840.1.854210.3.579.2. 1285 1995 Unknown [id number] 2.16.840.1.006349.3.579.2. 1285 1995 Unknown [id number] 2.16840.1.039939.3.579.2. 1285 1995 Unknown [id number] 2.16.840.1.988846.3.579.2. 1285 1995 Unknown [id number] 2.840.1.046113.3.579.2. 1258 1995 Unknown [id number] 2.840.1.919102.3.579.2. 1258 1995 Unknown [id number] 2.840.1.507269.3.579.2. 1258 1995 Unknown [id number] 2.840.1.670960.3.579.2. 1258 1995 Unknown [id number] 2.840.1.715860.3.579.2. 1258 1995 Unknown [id number] 2.840.1.358915.3.579.2. 1258 1995 Unknown [id number] 2.840.1.676492.3.579.2. 1258 1995 Unknown [id number] 2.16840.1.674592.3.579.2. 1258 1995 Unknown [id number] 2.16840.1.569623.3.579.2. 1258 1995 Unknown [id number] 2.16840.1.882637.3.579.2. 1258 1995 Unknown [id number] 2.840.1.039735.3.579.2. 1258 1995 Unknown [id number] 2.16.840.1.999350.3.579.2. 9 1995 Unknown [id number] 2.16.840.1.610093.3.579.2. 1258 1995 Unknown [id number] 2.16.840.1.260633.3.579.2. 1258 1995 Unknown [id number] 2.16.840.1.509084.3.579.2. 1258 1995 Unknown [id number] 2.16.840.1.355790.3.579.2. 1258 1995 Unknown [id number] 2.16.840.1.705864.3.579.2. 1258 1995 Unknown [id number] 2.16.840.1.339460.3.579.2. 1258 1995 Unknown [id number] 2.16.840.1.900389.3.579.2. 1258 1995 Unknown [id number] 2.16.840.1.980857.3.579.2. 1258 1995 Unknown [id number] 2.16.840.1.467855.3.579.2. 1258 1995 Unknown [id number] 2.16.840.1.978052.3.579.2. 9 Medicaid [id number] 2.16.840.1.037709.19 Unknown [id number] Social History Date Type Detail Facility Start: 06-06-2023 Sex Assigned At N [facility] Other Start: 04-07-2023 Tobacco smoking status NCIS Never smoked tobacco [facility] Start: 10-04-2023 Alcohol intake Not Asked [facility] Start: 06-06-2023 History of Social function [facility] Start: 04-07-2023 Alcohol Comment caffeine intak e: 1-2 cups per day. [facility] Start: 08-23-2023 [facility] Start: 1995 Sex Assigned At Not on file N [facility] Start: 10-03-2023 Gender identity Identifies as female gender (finding) [facility] Healthcare Goals Date Patient Goal Desired Activity [...] a routine visit. documented in this encounter [facility] Healthcare Evaluation note 01-06-2023 Note Date & [...] understanding and is agreeable to treatment plan. [facility] Other Evaluation note 01-03-2023 Note Date & [...] Z20.828) Dec, Sore throat (ICD-10 - J02.9) [facility] Other Evaluation note 10-21-2022 Note Date & [...] no improvement in 2 to 3 days. [facility] Other Evaluation note Note Date & Type Note Facility Evaluation note No Information [employer] Other Evaluation note Note Date & Type [...] Type Medical History Depression Medical History Anxiety [facility] Other History general Narrative - Reported Note Date & Type Note Facility History general Narrative - Reported Type Medical History bipolar Medical History DM II Surgical History No know Surgical history Hospitalization History 2 child births [facility] Other Summary Purpose Family History No Family [...] examination or test, positive result Amenorrhea Procedures [place] OFFICE/OUTPATIENT NEW HIGH MDM 60-74 MINUTES Carmen Burns CNM [address] [place] [address] Carmen Burns CNM [address] [place] [address] Referral ID Status Reason Start Date Expiration Date V isits Requested Visits Authorized [id number] Denied Specialty Services Required 10/05/2023 04/02/2024 1 0 Referral ID Status Reason Start Date Expiration Date V isits Requested Visits Authorized [id number] Denied Specialty Services Required 10/04/2023 04/01/2024 1 0 Additional Source Comments INFORMATION SOURCE (unrecogn ized section and content) DATE CREATED AUTHOR 01/25/2022 [facility] dical Specialist DATE CREATED AUTHOR AUTHOR'S ORGANIZ ATION 10/05/2023 [facility] DATE CREATED AUTHOR AUTHOR'S ORGANIZ ATION 11/24/2023 [facility] DATE CREATED AUTHOR AUTHOR'S ORGANIZ ATION 02/07/2024 [facility] DATE CREATED AUTHOR AUTHOR'S ORGANIZ ATION 03/10/2024 [facility] DATE CREATED AUTHOR AUTHOR'S ORGANIZ ATION 04/18/2024 [facility] DATE CREATED AUTHOR AUTHOR'S ORGANIZ ATION 04/30/2024 [facility] dicmt Specialists EPIC REASON FOR VISIT (unrecogniz ed section and content) SINUS CONGESTION, COUGHSORE THROAT, HEADACHE, NAUSEA, LOOSE STOOLNo InformationLEFT EAR FEELS FULL, MUFFLED SOUND, TINNITIS Care Teams (unrecognized sec tion and content) Facepiece Line Supervisor Relationship Specialty Start Date End Date Unallocated, [facility] [address] [place] [address] PCP - General 04/10/23 Facepiece Line Supervisor Relationship Specialty Start Date End Date Unallocated, [facility] [address] [place] [address] PCP - General 04/10/23 Facepiece Line Supervisor Relationship Specialty Start Date End Date Unallocated, [facility] [address] [place] [address] PCP - General 04/10/23 FOR RECORDS PERTAINING [...] BE BASED ON THE PRIMARY CLINICAL RECORDS. [facility]. provides no warranty or guarantee of the accuracy or completeness of information in this document.
[2024-05-01] MEDS: LACTATED RINGER'S SOLUTION 1,000 ML 125 ML IV ×3 (06:05→11:29)
[2024-05-01 06:18] LABS: Basophils Absolute Auto 0.1 10^3/uL (0.0-0.1); Basophils Percent Auto 0.7 % (0.2-2.0); Eosinophils Absolute Auto 0.2 10^3/uL (0.0-0.7); Eosinophils Percent Auto 1.1 % (0.9-7.0); Hematocrit 38.1 % (36.0-48.0); Hemoglobin 13.1 g/dL (12.0-16.0); Immature Granulocytes Abs Auto 0.11 10^3/uL (0.00-0.03); Immature Granulocytes Pct Auto 0.8 % (0.0-0.5); Lymphocytes Absolute Auto 3.1 10^3/uL (1.2-3.8); Lymphocytes Percent Auto 23.9 % (20.5-60.0); Mean Corpuscular HGB Conc 34.4 g/dL (29.9-35.2); Mean Corpuscular Volume 87.4 fL (81.0-99.0); Mean Platelet Volume 10.3 fL (9.5-13.5); Monocytes Absolute Auto 0.7 10^3/uL (0.3-0.8); Neutrophils Percent Auto 68.5 % (43.0-75.0); Platelet Count 324 10^3/uL (150-450); Red Blood Count 4.36 10^6/uL (4.20-5.40); Red Cell Distribution Width 13.1 % (11.0-15.0); White Blood Count 13.1 10^3/uL (4.0-11.0)
[2024-05-01 06:20] LABS: Bilirubin Urine NEGATIVE (NEGATIVE); Blood Urine MODERATE (NEGATIVE); Clarity Urine CLEAR (CLEAR); Color Urine YELLOW (YELLOW); Glucose Urine UA NEGATIVE (NEGATIVE); Ketones Urine NEGATIVE (NEGATIVE); Leukocyte Esterase Urine SMALL (NEGATIVE); Nitrite Urine NEGATIVE (NEGATIVE); Protein Urine 30 mg/dL (NEG/TRACE); Specific Gravity Urine 1.025 (1.005-1.025); Urobilinogen Urine 0.2 EU/dL (0.2-1.0)
[2024-05-01 06:26] LABS: Bacteria Urine TRACE #/HPF (NONE SEEN); Cast Seen? NONE SEEN #/LPF (NONE SEEN); Crystals Seen? None Seen #/HPF (None Seen); Mucus Urine MODERATE (NONE SEEN); RBC Urine 0-2 #/HPF (0-2); Squamous Epithelial Cell Urine MANY #/LPF (NONE/RARE); Urine Culture Indicated YES
[2024-05-01 06:28] LABS: Amphetamine Screen Urine NEGATIVE (NEGATIVE); Barbiturates Screen Urine NEGATIVE (NEGATIVE); Benzodiazepines Screen Urine NEGATIVE (NEGATIVE); Buprenorphine Screen Urine NEGATIVE (NEGATIVE); Cannabinoid Screen Urine NEGATIVE (NEGATIVE); Cocaine Screen Urine NEGATIVE (NEGATIVE); Methadone Screen Urine NEGATIVE (NEGATIVE); Methamphetamines Screen Urine NEGATIVE (NEGATIVE); Opiate Screen Urine NEGATIVE (NEGATIVE); Oxycodone Screen Urine NEGATIVE (NEGATIVE); Phencyclidine Screen Urine NEGATIVE (NEGATIVE); Tricyclic Antidepressant Urine NEGATIVE (NEGATIVE)
[2024-05-01] MEDS: METOCLOPRAMIDE HCL 10 MG/2 ML VIAL IVP (06:45)
[2024-05-01] MEDS: CITRIC ACID/SODIUM CITRATE 30 ML SOLUTION ORACIT SHOHL'S SOLN PO (06:45)
[2024-05-01] MEDS: FAMOTIDINE/PF 20 MG/2 ML VIAL IV (06:46)
[2024-05-01] MEDS: LACTATED RINGER'S SOLUTION 1,000 ML 1000 ML IV (06:46)
--- NOTE | 2024-05-01 07:14 | PM.OBHP ---
OB - H&P: HPI History of Present Illness Chief complaint: INDUCTION : 3 Para: 2 Gestational age based on last menstrual period: 38.0 Comments: induction for insulin dependent gestational diabetes with non compliance History of Present Dating criteria: LMP confirmed by 1st trimester US care: good care Ultrasounds: normal 1st trimester US and normal mid trimester US complications: gestational diabetes (insulin dependent ) Medical complications OB: other (anxiety, ) Narrative: social stressors with estranged and the father of this baby. Labs Blood type: B (+) positive Review of Systems ROS Status of ROS: 10 or more systems reviewed and unremarkable except as noted in history and below PFSH PFS Medical History (Updated 05/01/24 @ 07:24 by CARMEN GIFFORD APRN, LUIS) Diabetes ?E11.9 - Type 2 diabetes mellitus without complications (ICD-10) Suicide attempt ?T14.91XA - Suicide attempt, initial encounter (ICD-10) Depression ?F32.A - Depression, unspecified (ICD-10) Hip pain, right ?M25.551 - Pain in right hip (ICD-10) Surgical History (Updated 05/12/23 @ 07:59 by Elba Richard) Previous section ?Z98.891 - History of uterine scar from previous surgery (ICD-10) Social History Highest level of school completed/degree received: high school graduate Meds Home Medications and Allergies Home Medications ?Medication ?Instructions ?Recorded ?Confirmed ?Type lamotrigine 150 mg PO DAILY 05/12/23 05/18/23 History sertraline 200 mg capsule 200 mg PO DAILY 05/12/23 05/18/23 History acetaminophen 500 mg tablet 1,000 mg (2 x 500 mg) PO Q6H #30 04/13/24 Rx tabs acetaminophen 500 mg tablet 500 mg PO Q6H PRN fever or pain 04/13/24 Rx (Tylenol Extra Strength) #30 tabs cmrwztjmtedzh-XD-vzxqhmelzti 2.5 15 ml PO Q4H PRN cough #118 mL 04/13/24 Rx mg-5 mg-50 mg/5 mL oral liquid (Robitussin Cough and Cold CF) insulin glargine 100 unit/mL (3 unit subcut 05/01/24 History mL) subcutaneous pen (Lantus Solostar U-100 Insulin) insulin lispro 100 unit/mL subcut 05/01/24 History subcutaneous pen (Humalog KwikPen (U-100) Insulin) Allergies Allergy/AdvReac Type Severity Reaction Status Date / Time sulfamethoxazole Allergy Dizziness Verified 05/18/23 14:01 [From Bactrim] trimethoprim [From Bactrim] Allergy Dizziness Verified 05/12/23 07:57 metformin Allergy Unknown Uncoded 05/18/23 14:01 nickel Allergy Rash Uncoded 05/18/23 14:01 Exam Constitutional Vital Signs, click to edit/add: Last Vital Signs Resp 16 05/01/24 06:27 Pulse Ox 95 05/01/24 06:27 O2 Del Method Room Air 05/01/24 06:27 Documenting provider has reviewed patient's vital signs: yes Common normals: no apparent distress, average body habitus, oriented x3, no limitations, healthy appearing, alert and well nourished General appearance: cooperative and comfortable Orientation/consciousness: Yes awake, Yes oriented to person, Yes oriented to place and Yes oriented to time HENMT Common normals: normocephalic Eye Common normals: EOMs intact bilaterally Neck & C-Spine Common normals: full ROM Lymph Lymphatic: no lymphadenopathy noted Chest Common normals: inspection of chest normal Respiratory Common normals: normal respiratory effort and no use of accessory muscles Cardio Common normals: regular rate and regular rhythm GI Common normals: Normal to inspection, nondistended, normoactive bowel sounds present, soft to palpation and non-tender Auscultation: normoactive bowel sounds Palpation: soft Common normals: no CVA tenderness Back & Pelvis Common normals: no CVA tenderness Extremity Common normals: normal to inspection Neuro Common normals: oriented x3 Sensorium/orientation: awake, alert, oriented to person, oriented to place and oriented to time Psych Common normals: mental status grossly normal, thought process normal, cooperative, affect normal, speech normal, activity/motor behavior normal, denies hallucinations, denies homicidal ideation and denies suicidal ideation Results Labs Labs: Short CBC 05/01/24 Range/Units 06:05 WBC 13.1 H (4.0-11.0) 10^3/uL Hgb 13.1 (12.0-16.0) g/dL Hct 38.1 (36.0-48.0) % Plt Count 324 (150-450) 10^3/uL Urine 05/01/24 Range/Units 05:45 Urine Color Yellow (YELLOW) Urine Clarity Clear (CLEAR) Urine pH 6.0 (5.0-9.0) Ur Specific [place] 1.025 (1.005-1.025) Urine Protein 30 A (NEG/TRACE) mg/dL Urine Glucose (UA) Negative (NEGATIVE) mg/dL OB - A/P Assessment and Plan (1) Term : (2) Gestational diabetes mellitus (GDM): (3) Insulin dependent diabetes mellitus: Urinary Catheter Management Urinary Catheter Management Urethral: Cath placed during this visit: no Urethral indwelling: Yes Reason for continuing: prolonged immobilization
[2024-05-01 07:25] LABS: Glucometer 91 mg/dL (74-106)
--- NOTE | 2024-05-01 07:43 | PC.NURSE ---
fingerscameronk cayetano 89
--- NOTE | 2024-05-01 07:43 | PC.NURSE ---
awaiting surgery, voices n complaints, family present
[2024-05-01] MEDS: CEFAZOLIN SODIUM/DEXTROSE,ISO 2 GM/50 ML PIGGYBACK IV ×2 (07:57→14:49)
--- NOTE | 2024-05-01 08:56 | PM.ONB ---
Brief Operative Note Date of procedure: 05/01/24 Pre-op diagnosis general: previous c/s, desires permanent, iup at 38, type 11 dm Post-op diagnosis: same as pre-op Procedure: NAME OF PROCEDURE: [ section with bilateral salpingectomy ] PROCEDURE: Patient was taken back to the Operating Room where she was given a spinal anesthesia with Duramorph without difficulty. She was prepped and draped in the normal sterile fashion. A Pfannenstiel skin incision was then made 2?cm above the symphysis pubis and carried down to underlying rectus fascia using a Bovie. The fascia was incised in the midline and extended laterally using Lynn scissors. Two Shaniqua clamps were placed on the superior aspect of the fascia and dissected off the underlying rectus muscles. The same was performed on the inferior aspect as well. The muscles were then in the midline. Peritoneum was identified and entered bluntly. The peritoneum was then extended superiorly and inferiorly with good visualization of the bladder. The bladder blade was inserted. Vesicouterine peritoneum was identified, tented up, and entered with Metzenbaum scissors. A bladder flap was then created digitally. The bladder blade was reinserted. A low transverse incision was made on the patient's uterus and extended laterally digitally. The infant was then delivered atraumatically after the bladder blade was removed in the cephalic position. The cord was clamped and cut. Cord blood was obtained. The was handed off to awaiting team. The patient's placenta was spontaneously delivered. The uterus was then exteriorized. The uterus was cleared of all clots and debris. The bladder blade was reinserted. The patient's uterine incision was closed using #0 Vicryl in a running lock fashion. Excellent hemostasis was assured.? The rt tube was identified and grasped with babock, the ligasure was used to transect and ligate the tube in its entirity, this was done on the contralateral side as well. The uterus was then returned to the patient's abdomen. The patient's abdomen was copiously irrigated using warm saline. Peritoneal gutters were cleared of all clots and debris. Again excellent hemostasis was assured. The patient's fascia was closed using #0 Vicryl in a running fashion. The patient's skin was closed using 4-0 Vicryl subcuticularly. The patient tolerated the procedure well. Sponge, lap, and needle counts were correct x2. The patient was taken to the Recovery Room in stable condition. Anesthesia: spinal Surgeon: Ramírez Barajas [employer] Intern: CARMEN GIFFORD Estimated blood loss (mL): 575 Pathology: other (tubal) Condition: stable Disposition: PACU Urinary Catheter Management Urinary Catheter Management Urethral: Cath placed during this visit: no Urethral indwelling: Yes
--- NOTE | 2024-05-01 09:02 | PM.OBPRCCS ---
Procedure Pre-op/Post-op diagnoses: Pre-Op/Post-Op Diagnoses Operation Date: 05/01/24 07:30 <No data on this case meets the specified criteria> Procedure: Procedures Operation Date: 05/01/24 07:30 Actual Procedure Side Surgeon p Repeat with Bilateral Salpingectomy Bilateral Ramírze Barajas DO [employer] Technician: CARMEN GIFFORD Estimated blood loss (mL): 575 Disposition: PACU Anesthesia type: Spinal
[2024-05-01] MEDS: OXYTOCIN/0.9 % SODIUM CHLORIDE 20 UNITS/1,000 ML PLAST..BAG 125 UNIT IV (09:30)
--- NOTE | 2024-05-01 11:11 | PM.EN ---
Event Note Event Note: B[employer] Feeder Dyed Raw Stock Note: I first assisted Dr Barajas with repeat section as directed. I independently closed the SQ layer with 3-0 vicryl without difficulty. I then closed the incision with 4-0 vicryl on a Bennett needle without difficulty. Hemostasis noted at completion. Patient tolerated procedure well.
[2024-05-01] MEDS: KETOROLAC TROMETHAMINE 30 MG/ML VIAL IVP ×2 (14:49→21:10)
[2024-05-01] MEDS: ACETAMINOPHEN 500 MG TABLET 1000 MG PO ×2 (17:22→23:57)
[2024-05-02 00:01] VITALS: BP 120/81; O2SAT 97
[2024-05-02 00:13] VITALS: BP 120/81; PULSE 79; TEMP 36.8; O2SAT 96
[2024-05-02] MEDS: KETOROLAC TROMETHAMINE 30 MG/ML VIAL IVP (03:37)
[2024-05-02 03:41] VITALS: BP 131/83; O2SAT 96
[2024-05-02 03:57] VITALS: BP 131/83; PULSE 60; TEMP 37; O2SAT 96
--- NOTE | 2024-05-02 04:24 | PM.OBPN ---
OB - PN: Subj Subjective Patient comments: no complaints and pain well controlled [place] status: doing well Exam Constitutional Vital Signs, click to edit/add: Last Vital Signs Temp 98.6 F 05/02/24 03:57 Pulse 60 05/02/24 03:57 Resp 16 05/02/24 03:57 BP 131/83 05/02/24 03:57 Pulse Ox 96 05/02/24 03:57 O2 Del Method Room Air 05/02/24 03:57 Documenting provider has reviewed patient's vital signs: yes Common normals: no apparent distress Respiratory Common normals: normal respiratory effort and clear to auscultation bilaterally Cardio Common normals: regular rate and regular rhythm GI Common normals: Normal to inspection, nondistended, normoactive bowel sounds present Extremity Common normals: no clubbing, cyanosis or edema Results Labs Labs: Short CBC 05/01/24 Range/Units 06:05 WBC 13.1 H (4.0-11.0) 10^3/uL Hgb 13.1 (12.0-16.0) g/dL Hct 38.1 (36.0-48.0) % Plt Count 324 (150-450) 10^3/uL Urine 05/01/24 Range/Units 05:45 Urine Color Yellow (YELLOW) Urine Clarity Clear (CLEAR) Urine pH 6.0 (5.0-9.0) Ur Specific [place] 1.025 (1.005-1.025) Urine Protein 30 A (NEG/TRACE) mg/dL Urine Glucose (UA) Negative (NEGATIVE) mg/dL Urinary Catheter Management Urinary Catheter Management Urethral: Cath placed during this visit: yes, but has since been removed by the nurse Urethral indwelling: Yes Removal date: 05/02/24 Removal time: 03:55 OB - PN: A/P Assessment and Plan (1) Term : (2) Gestational diabetes mellitus (GDM): (3) Insulin dependent diabetes mellitus: Plan - day: 1 Plan: routine postop care Time Spent with Patient Time: Total time spent is greater than 50% in coordination of care (as documented) at patient's floor/unit and/or counseling patient: Total time spent with greater than 50% in coordination of care (as documented) at patient's floor/unit and/or counseling patient: less than 15 minutes
[2024-05-02 06:04] LABS: Basophils Absolute Auto 0.1 10^3/uL (0.0-0.1); Basophils Percent Auto 0.3 % (0.2-2.0); Eosinophils Percent Auto 0.2 % (0.9-7.0); Hematocrit 27.9 % (36.0-48.0); Hemoglobin 9.3 g/dL (12.0-16.0); Immature Granulocytes Pct Auto 0.6 % (0.0-0.5); Lymphocytes Absolute Auto 3.6 10^3/uL (1.2-3.8); Lymphocytes Percent Auto 20.1 % (20.5-60.0); Mean Corpuscular HGB Conc 33.3 g/dL (29.9-35.2); Mean Corpuscular Hemoglobin 30.3 pg (26.7-34.0); Mean Corpuscular Volume 90.9 fL (81.0-99.0); Mean Platelet Volume 10.8 fL (9.5-13.5); Monocytes Absolute Auto 1.2 10^3/uL (0.3-0.8); Monocytes Percent Auto 6.5 % (1.7-12.0); Neutrophils Percent Auto 72.3 % (43.0-75.0); Platelet Count 245 10^3/uL (150-450); Red Blood Count 3.07 10^6/uL (4.20-5.40); Red Cell Distribution Width 13.3 % (11.0-15.0); White Blood Count 17.9 10^3/uL (4.0-11.0)
[2024-05-02 09:12] VITALS: BP 120/81; PULSE 76; TEMP 36.9; O2SAT 98
[2024-05-02] MEDS: DOCUSATE SODIUM 100 MG CAPSULE PO ×2 (09:16→22:09)
[2024-05-02] MEDS: ACETAMINOPHEN 500 MG TABLET 1000 MG PO ×2 (09:16→20:03)
[2024-05-02] MEDS: IBUPROFEN 400 MG TABLET 800 MG PO ×3 (09:16→22:09)
[2024-05-02 15:12] VITALS: BP 116/80; PULSE 67; TEMP 37.1; O2SAT 99
[2024-05-02] MEDS: ENOXAPARIN SODIUM 40 MG/0.4 ML SYRINGE SUBQ (22:09)
[2024-05-03 00:50] VITALS: BP 130/81; TEMP 36.8
--- NOTE | 2024-05-03 04:14 | PM.OBPN ---
OB - PN: Subj Subjective Patient comments: no complaints and pain well controlled [place] status: doing well Exam Constitutional Vital Signs, click to edit/add: Last Vital Signs Temp 98.7 F 05/02/24 15:12 Pulse 67 05/02/24 15:12 Resp 14 05/02/24 15:12 BP 130/81 05/03/24 00:50 Pulse Ox 99 05/02/24 15:12 O2 Del Method Room Air 05/02/24 10:10 Documenting provider has reviewed patient's vital signs: yes Common normals: no apparent distress Respiratory Common normals: normal respiratory effort and clear to auscultation bilaterally Cardio Common normals: regular rate and regular rhythm GI Common normals: Normal to inspection, nondistended, normoactive bowel sounds present Extremity Common normals: no calf tenderness Results Labs Labs: Short CBC 05/02/24 Range/Units 05:46 WBC 17.9 H (4.0-11.0) 10^3/uL Hgb 9.3 L (12.0-16.0) g/dL Hct 27.9 L (36.0-48.0) % Plt Count 245 (150-450) 10^3/uL Urinary Catheter Management Urinary Catheter Management Urethral: Cath placed during this visit: yes, but has since been removed by the nurse Urethral indwelling: Yes Removal date: 05/02/24 Removal time: 03:55 OB - PN: A/P Assessment and Plan (1) Term : (2) Gestational diabetes mellitus (GDM): (3) Insulin dependent diabetes mellitus: Plan - day: 2 Plan: routine postop care, discharge home and other (fu 1wk) Time Spent with Patient Time: Total time spent is greater than 50% in coordination of care (as documented) at patient's floor/unit and/or counseling patient: Total time spent with greater than 50% in coordination of care (as documented) at patient's floor/unit and/or counseling patient: less than 15 minutes
[2024-05-03] MEDS: ACETAMINOPHEN 500 MG TABLET 1000 MG PO (04:16)
[2024-05-03] MEDS: IBUPROFEN 400 MG TABLET 800 MG PO (04:16)
[2024-05-03] MEDS: DOCUSATE SODIUM 100 MG CAPSULE PO (08:03)
[2024-05-03 08:04] VITALS: BP 110/72; PULSE 85
[2024-05-03 08:06] VITALS: TEMP 36.8
[2024-05-03 08:07] VITALS: O2SAT 99
== END 2024-05-03 10:45 | disposition home or self-care (01) | DRG 539 ==
PROVIDERS: Admitting Provider Obstetrics & Gynecology; Visit Provider Obstetrics & Gynecology
PROC: 10D00Z1 Extraction of Products of Conception, Low, Open Approach (ICD-10-PCS; CPT 59514; principal; 2024-05-01 07:30)
DX: O34.211 Maternal care for low transverse scar from previous cesarean delivery (principal); O24.424 Gestational diabetes mellitus in childbirth, insulin controlled; O99.344 Other mental disorders complicating childbirth; F41.9 Anxiety disorder, unspecified; Z3A.38 38 weeks gestation of pregnancy; Z37.0 Single live birth; Z63.5 Disruption of family by separation and divorce; Z91.52 Personal history of nonsuicidal self-harm; Z91.51 Personal history of suicidal behavior; Z91.148 Patient's other noncompliance with medication regimen for other reason; F32.A Depression, unspecified
CPT/HCPCS: 36415; 64488; 80307; 81001; 85025; 86850; 86870; 86880; 86900; 86901; 86905; 86906; 87086; 88302; 88307; 94667; 96372; 96374; 96375; 96376; J0131; J0665; J0690; J1100; J1650; J1885; J2274; J2405; J2590; J2765